=== PATIENT | male | born 1950 | race Caucasian/White ===

== ENCOUNTER → 2017-06-06 10:30 | Outpatient (CLI) | payer OTHER, SELFPAY ==
[2017-06-06 12:25] LABS: AST(SGOT) 22 U/L (15-37); Alanine Aminotransfer ALT/SGPT 12 U/L (16-61); Albumin, Serum 3.5 g/dL (3.2-5.0); Alkaline Phosphatase 110 U/L (45-117); Bilirubin, Direct 0.14 mg/dL (0.00-0.30); Cholesterol 130 mg/dL (200); Globulin 3.7 g/dL (2.2-4.2); High Density Lipoprotein 49 mg/dL; Protein, Total 7.2 g/dL (6.4-8.2); Triglycerides 79 mg/dL; Very Low Density Lipoprotein 16 mg/dL (5-40)
== END ==
PROVIDERS: Internal Medicine Cardiovascular Disease; Family Provider Family Medicine; PCP Family Medicine; Visit Provider Physician Assistant Medical
DX: E78.5 Hyperlipidemia, unspecified (principal); Z79.899 Other long term (current) drug therapy
CPT/HCPCS: 36415; 80061; 80076

== ENCOUNTER → 2017-12-21 09:10 | Outpatient (CLI) | payer OTHER, SELFPAY ==
[2017-12-21 10:17] LABS: AST(SGOT) 21 U/L (15-37); Alanine Aminotransfer ALT/SGPT 23 U/L (16-61); Albumin, Serum 3.7 g/dL (3.2-5.0); Alkaline Phosphatase 102 U/L (45-117); Bilirubin, Direct 0.15 mg/dL (0.00-0.30); Cholesterol 124 mg/dL (200); Globulin 3.2 g/dL (2.2-4.2); High Density Lipoprotein 50 mg/dL; Protein, Total 6.9 g/dL (6.4-8.2); Triglycerides 79 mg/dL; Very Low Density Lipoprotein 16 mg/dL (5-40)
== END ==
PROVIDERS: Physician Assistant Medical; Family Provider Family Medicine; PCP Family Medicine; Visit Provider Internal Medicine Cardiovascular Disease
DX: E78.5 Hyperlipidemia, unspecified (principal); Z79.899 Other long term (current) drug therapy
CPT/HCPCS: 36415; 80061; 80076

== ENCOUNTER 2018-03-24 16:49 | Inpatient (IN) | payer OTHER, SELFPAY ==
[2018-03-24] VITALS (7 sets, daily range): BP systolic 131–150; BP diastolic 69–78; PULSE 61–93; RESP 16–23; TEMP 37; O2SAT 97–100; BMI 30.7; BMI 29.3; BMI 29.4
--- NOTE | 2018-03-24 17:08 | EKG12_ITS ---
Test Reason : CHEST PAIN Blood Pressure : / mmHG Vent. Rate : 091 BPM Atrial Rate : 091 BPM P-R Int : 166 ms QRS Dur : 094 ms QT Int : 352 ms P-R-T Axes : 054 -34 047 degrees QTc Int : 432 ms Normal sinus rhythm Left axis deviation Pulmonary disease pattern Abnormal ECG Confirmed by RADHA AMIN, DAVID ([id number]), graphic editor JEZ MACIAS ([id number] on 03/28/2018 10:47:02 AM Referred By: GURPREET Confirmed By:DAVID GARCIA MD
--- NOTE | 2018-03-24 17:08 | RAD_ITS ---
STUDY: X-RAY CHEST REASON FOR EXAM: Male, 67 years old. Chest pain TECHNIQUE: AP portable COMPARISON: October 01, 2013 FINDINGS: The lungs are clear and expanded. There is no demonstrated pleural abnormality. Normal size heart. Normal mediastinum and della. Normal visualized pulmonary arteries. Normal visualized aortic arch and descending thoracic aorta. Normal visualized thoracic spine. Normal visualized ribs, clavicles, and shoulders. There are postsurgical changes of the cervical spine. There is no demonstrated abnormality of the visualized soft tissue structures of the upper abdomen. No significant change since prior study RAD/Chest 1 View (Portable) IMPRESSION: No acute cardiopulmonary pathology Electronically Signed: Carlos Sheehan MD at 17:58 EST , Service support ,
[2018-03-24] MEDS: Aspirin 81 MG TAB.CHEW 324 MG PO (17:13)
--- NOTE | 2018-03-24 17:14 | ED.VISSUMM ---
- ER Visit Summary Date of Service: 03/24/18 Chief Complaint: [] Chest pain today with exertion History of Present Illness: The patient is a 67 M [] to 3 cardiac stents his general health condition is very stable he was exerting himself today with some activities he began to have chest discomfort he stopped activities took 1 baby aspirin symptoms resolved he is pain-free and he came in for evaluation he is seen by Dr. Villalobos he has never had an GA before, he said no fever no cough history of DVT PE or GA bowel bladder habits have been normal Physical Examination: [] 150/78 100% afebrile pain-free General, no distress resting comfortably HEENT is generally unremarkable The neck is supple no adenopathy Cardiovascular, regular rate and rhythm Lungs, clear bilateral Abdomen, soft nontender Extremities, no clubbing cyanosis or edema Neurologic, awake alert answering questions appropriately moving all 4 extremities eKG shows a sinus rhythm nothing acute given his complaints and all the above screening labs are obtained His screening labs are all generally unremarkable see those reports, we spoke with Dr. Bhatti recommends admission spoke with hospitalist service they will arrange for admission for further management patient remains pain-free and agrees to admission Test Results: [] Emergency Department Course and Treatment: [] Treatment Plan: [] Disposition: [] Admit stable Impression: [] Chest pain, history of cardiac stents This note was generated with [employer] dictation software. It may contain incorrect words, spelling, and punctuation that were not noted in review of the chart prior to signing ED Disposition - Plan for ED Patient: Chief Complaint: Chest Pain Referrals: Misael Woo III, MD [Primary Care Provider] -
[2018-03-24 17:48] LABS: Absolute Lymphocyte Count 0.97 X10^3/ul (0.83-4.51); Absolute Neutrophil Count 9.1 X10^3/uL (2.0-7.7); Basophil# 0.02 X10^3/uL; Basophil% 0.2 % (0-1); Eosinophil# 0.07 X10^3/uL; Eosinophils% 0.6 % (0-5); Hematocrit 40.3 % (40-54); Lymphocyte # 0.97 X10^3/ul (4.0); Lymphocyte % 8.7 % (19-41); Mean Corp Hgb Conc 34.7 g/gl (32-36); Mean Corpuscular Hgb 31.1 pg (27.0-32.0); Mean Corpuscular Volume 89.6 fL (80-94); Mean Platelet Vol. 10.2 fl (6.2-12.0); Monocyte# 0.99 X10^3/uL; Monocyte% 8.8 % (0-10); Neutrophil # 9.11 X10^3/uL (2.7-7.7); Neutrophil % 81.4 % (47-70); Platelet Count 220 K/mm3 (150-450); RBC Distribution Width CV 12.3 % (11.6-14.6); White Blood Count 11.2 K/mm3 (4.4-11.0)
--- NOTE | 2018-03-24 17:52 | PCM.CONS.C ---
Reason for Consult Date of Consultation: 03/24/18 Reason for Consultation: Chest discomfort History of Present Illness: JESSI JEFFERSON, is a 67 M who presents to the emergency room this afternoon with chest discomfort. He says that he was engaged in heavy exertional activity this afternoon and then started experiencing chest discomfort described as a heaviness he sat down for a few minutes and the chest discomfort seemed to ease. He however continued to have it with mild radiation to the left arm. He called and was brought to the emergency room and by the time he got to the emergency room he was free of any significant discomfort. An EKG which was done demonstrated normal sinus rhythm with no acute changes. He was however concerned about the extent of the chest discomfort. He says that in the past stress tests have not demonstrated any abnormality though he has had disease. He has a history of coronary artery disease with angioplasty and stenting to his LAD and circumflex in 2008, and IVUS guided stenting to his RCA in 2013. He also has a history of hypertension and hyperlipidemia. He has not had any dizziness or diaphoresis no near syncope or syncope. He has been compliant with all his medications. He is currently pain-free. Past Medical History Allergies/Adverse Reactions: Allergies oxycodone HCl [From Percocet] Allergy (Intermediate, Verified 03/24/18 16:49) Itching duloxetine HCl [From Cymbalta] Adverse Reaction (Intermediate, Verified 03/24/18 16:49) Mood Change venlafaxine HCl [From Effexor] Adverse Reaction (Intermediate, Verified 03/24/18 16:49) Mood change aricept Adverse Reaction (Intermediate, Uncoded 03/24/18 16:49) GI upset Home Medications: Ambulatory Orders Medication Instructions Recorded Carbidopa/Levodopa [Sinemet Cr 1 ea PO TID 10/01/13 25-100 Tablet] Cyanocobalamin [Vitamin B12] 500 mcg PO DAILY@0800 10/01/13 Doxazosin Mesylate [Cardura] 4 mg PO QHS 10/01/13 Finasteride [Proscar] 5 mg PO DAILY 10/01/13 Omeprazole [Prilosec] 20 mg PO DAILY 10/01/13 Pyridoxine HCl [Vitamin B6] 200 mg PO DAILY 10/01/13 aspirin 81 mg tablet,delayed 81 mg PO QDAY 12/02/17 release gabapentin 300 mg capsule 300 mg PO QDAY PRN 12/03/17 atorvastatin 80 mg tablet 80 mg PO QHS #90 tab 01/08/18 Past Medical History (Chronic Problems): Chronic Problems (Last Reviewed 12/02/17 @ 13:17 by Tiffany Valdez) 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 Villalobos Family history of premature coronary heart disease (Chronic) Male <55 Surgical History: no surgical history Lives: Spouse/ Significant Other Smoking Status: Never smoker Alcohol: None Drugs: None Review of Systems - Review of Systems General: Denies: Fever, Night Sweats, Fatigue HEENT: Denies: Vision Change Cardiovascular: Reports: Chest Discomfort with Exertion, Chest Heaviness. Denies: Chest Discomfort, Shortness of Breath, Orthopnea, PND, Peripheral Edema, Palpitations, Lightheadedness, Dizziness, Near Syncope, Syncope Respiratory: Denies: Cough, Sputum Production, Hemoptysis Gastrointestinal: Denies: Indigestion, Hematemesis, Hematochezia, Melena Genitourinary: Denies: Dysuria, Hematuria Muscoloskeletal: Denies: Myalgias Skin: Denies: Rash Neurological: Denies: Dizziness Psychiatric: Denies: Anxiety Endocrine: Denies: Heat Intolerance Hematologic/ Lymphatic: Denies: Anemia Subjectve: Pleasant gentleman in no apparent distress Objective: Vital Signs Temp Pulse Resp BP Pulse Ox 98.6 F 93 22 H 150/78 H 100 03/24/18 16:49 03/24/18 16:49 03/24/18 16:49 03/24/18 16:49 03/24/18 17:14 Oxygen Flow Rate (L/min) 2 Oxygen Delivery Method Nasal Cannula Weight: 208 lb 1.862 oz Body Mass Index (BMI) 30.7 General: Awake, Alert, Oriented x 3 HEENT: PERRL, EOMI, Sclera Non Icteric Neck: Supple, Good ROM, No Lymph Node Enlargement Lungs: Clear to auscultation Cardiovascular: Regular Rhythm, Normal S1, Normal S2, No Murmurs, No Rubs, No Gallops Vascular: No Carotid Bruits, Normal Femoral Pulses, Normal Radial Pulses, Normal Dorsalis Pedal Pulse, Normal Posterior Tibial Pulses Abdomen: Bowel Sounds Present, Soft, Non Tender, No HSM, No Organomegaly Extremities: No Cyanosis, No Clubbing, No edema Skin: No Rashes Lymphatic: No Lymph Node Enlargement Neurological: No Focal Motor or Sensory Deficit Psych/Mental Status: Appropriate Rhythm: EKG: ECHO: Stress Test: Cardiac Cath: PCI: CT Surgery: Holter monitor: EPS: PPM: CXR: Chest CT Scan: Assessment/Plan 1. Chest pain Patient presents with new onset exertional chest discomfort. He does have a known history of coronary artery disease status post previous stenting as noted above. He has been otherwise physically active in the past and has not had any anginal spells. His EKG does not demonstrate any acute abnormalities. Due to the recent onset of the discomfort I am concerned that this may be a manifestation of angina. As in the past he has had stress test which she says have been nondiagnostic he is hesitant to proceed with another stress test. I therefore discussed with him about the possibility of undergoing a cardiac catheterization. The risk benefits and alternatives have been explained to him he understands and agrees to proceed. Above discussed with Dr. Villalobos who would perform the cardiac catheterization in a.m. 2. Hyperlipidemia Routine lipid profiles are obtained and at his last visit he was noted to be at goal. We will continue to check this every 6 months. 3. Atrial fibrillation He does have a history of paroxysmal atrial fibrillation and currently is maintaining sinus rhythm. No other recommendation regarding the above will be made. Thank you for allowing me to participate in the care of your patient. Please don't hesitate to call if any issues arise
--- NOTE | 2018-03-24 17:56 | CON.PCM_ITS ---
Reason for Consult Date of Consultation: 03/24/18 Reason for Consultation: Chest discomfort History of Present Illness: JESSI JEFFERSON, is a 67 M who presents to the emergency room this afternoon with chest discomfort. He says that he was engaged in heavy exertional activity this afternoon and then started experiencing chest discomfort described as a heaviness he sat down for a few minutes and the chest discomfort seemed to ease. He however continued to have it with mild radiation to the left arm. He called and was brought to the emergency room and by the time he got to the emergency room he was free of any significant discomfort. An EKG which was done demonstrated normal sinus rhythm with no acute changes. He was however concerned about the extent of the chest discomfort. He says that in the past stress tests have not demonstrated any abnormality though he has had disease. He has a history of coronary artery disease with angioplasty and stenting to his LAD and circumflex in 2008, and IVUS guided stenting to his RCA in 2013. He also has a history of hypertension and hyperlipidemia. He has not had any dizziness or diaphoresis no near syncope or syncope. He has been compliant with all his medications. He is currently pain-free. Past Medical History Allergies/Adverse Reactions: Allergies oxycodone HCl [From Percocet] Allergy (Intermediate, Verified 03/24/18 16:49) Itching duloxetine HCl [From Cymbalta] Adverse Reaction (Intermediate, Verified 03/24/18 16:49) Mood Change venlafaxine HCl [From Effexor] Adverse Reaction (Intermediate, Verified 03/24/18 16:49) Mood change aricept Adverse Reaction (Intermediate, Uncoded 03/24/18 16:49) GI upset Home Medications: Ambulatory Orders Medication Instructions Recorded Carbidopa/Levodopa [Sinemet Cr 1 ea PO TID 10/01/13 25-100 Tablet] Cyanocobalamin [Vitamin B12] 500 mcg PO DAILY@0800 10/01/13 Doxazosin Mesylate [Cardura] 4 mg PO QHS 10/01/13 Finasteride [Proscar] 5 mg PO DAILY 10/01/13 Omeprazole [Prilosec] 20 mg PO DAILY 10/01/13 Pyridoxine HCl [Vitamin B6] 200 mg PO DAILY 10/01/13 aspirin 81 mg tablet,delayed 81 mg PO QDAY 12/02/17 release gabapentin 300 mg capsule 300 mg PO QDAY PRN 12/03/17 atorvastatin 80 mg tablet 80 mg PO QHS #90 tab 01/08/18 Past Medical History (Chronic Problems): Chronic Problems (Last Reviewed 12/02/17 @ 13:17 by Tiffany Valdez) 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 Villalobos Family history of premature coronary heart disease (Chronic) Male <55 Surgical History: no surgical history Lives: Spouse/ Significant Other Smoking Status: Never smoker Alcohol: None Drugs: None Review of Systems - Review of Systems General: Denies: Fever, Night Sweats, Fatigue HEENT: Denies: Vision Change Cardiovascular: Reports: Chest Discomfort with Exertion, Chest Heaviness. Denies: Chest Discomfort, Shortness of Breath, Orthopnea, PND, Peripheral Edema, Palpitations, Lightheadedness, Dizziness, Near Syncope, Syncope Respiratory: Denies: Cough, Sputum Production, Hemoptysis Gastrointestinal: Denies: Indigestion, Hematemesis, Hematochezia, Melena Genitourinary: Denies: Dysuria, Hematuria Muscoloskeletal: Denies: Myalgias Skin: Denies: Rash Neurological: Denies: Dizziness Psychiatric: Denies: Anxiety Endocrine: Denies: Heat Intolerance Hematologic/ Lymphatic: Denies: Anemia Subjectve: Pleasant gentleman in no apparent distress Objective: Vital Signs Temp Pulse Resp BP Pulse Ox 98.6 F 93 22 H 150/78 H 100 03/24/18 16:49 03/24/18 16:49 03/24/18 16:49 03/24/18 16:49 03/24/18 17:14 Oxygen Flow Rate (L/min) 2 Oxygen Delivery Method Nasal Cannula Weight: 208 lb 1.862 oz Body Mass Index (BMI) 30.7 General: Awake, Alert, Oriented x 3 HEENT: PERRL, EOMI, Sclera Non Icteric Neck: Supple, Good ROM, No Lymph Node Enlargement Lungs: Clear to auscultation Cardiovascular: Regular Rhythm, Normal S1, Normal S2, No Murmurs, No Rubs, No Gallops Vascular: No Carotid Bruits, Normal Femoral Pulses, Normal Radial Pulses, Normal Dorsalis Pedal Pulse, Normal Posterior Tibial Pulses Abdomen: Bowel Sounds Present, Soft, Non Tender, No HSM, No Organomegaly Extremities: No Cyanosis, No Clubbing, No edema Skin: No Rashes Lymphatic: No Lymph Node Enlargement Neurological: No Focal Motor or Sensory Deficit Psych/Mental Status: Appropriate Rhythm: EKG: ECHO: Stress Test: Cardiac Cath: PCI: CT Surgery: Holter monitor: EPS: PPM: CXR: Chest CT Scan: Assessment/Plan 1. Chest pain * Patient presents with new onset exertional chest discomfort. He does have a known history of coronary artery disease status post previous stenting as noted above. He has been otherwise physically active in the past and has not had any anginal spells. His EKG does not demonstrate any acute abnormalities. * Due to the recent onset of the discomfort I am concerned that this may be a manifestation of angina. As in the past he has had stress test which she says have been nondiagnostic he is hesitant to proceed with another stress test. I therefore discussed with him about the possibility of undergoing a cardiac catheterization. The risk benefits and alternatives have been explained to him he understands and agrees to proceed. * Above discussed with Dr. Villalobos who would perform the cardiac catheterization in a.m. * 2. Hyperlipidemia * Routine lipid profiles are obtained and at his last visit he was noted to be at goal. We will continue to check this every 6 months. * 3. Atrial fibrillation * He does have a history of paroxysmal atrial fibrillation and currently is maintaining sinus rhythm. No other recommendation regarding the above will be made. * Thank you for allowing me to participate in the care of your patient. Please don't hesitate to call if any issues arise
[2018-03-24 18:04] LABS: POSITIVE COUNT NO; POSITIVE DIFFERENTIAL NO; POSITIVE MORPHOLOGY NO
[2018-03-24 18:36] LABS: Anion Gap 11 (5-15); BUN 26 mg/dL (7-18); BUN/Creat Ratio 20.3 RATIO (10-20); Chloride 106 mmol/L (98-107); Creatinine, Serum 1.28 mg/dL (0.70-1.30); EST Glomerular Filtration Rate 60 mL/min (>60); Est Glom Filt Rate - Afr Amer 72 mL/min (>60); Estimated Creatinine Clearance 57.54 ml/min; Glucose 90 mg/dL (74-106); Potassium 3.6 mmol/L (3.5-5.1); Sodium Level 141 mmol/L (136-145)
--- NOTE | 2018-03-24 18:55 | EKG12_ITS ---
Test Reason : CP ADMIT Blood Pressure : / mmHG Vent. Rate : 060 BPM Atrial Rate : 060 BPM P-R Int : 182 ms QRS Dur : 096 ms QT Int : 408 ms P-R-T Axes : 058 -37 022 degrees QTc Int : 408 ms Normal sinus rhythm Left axis deviation Abnormal ECG Confirmed by MELVIN AMIN, ALEIDA ([id number]), editor city JEZ MACIAS ([id number]) on 03/28/2018 11:37:28 AM Referred By: DR JENNINGS Confirmed By:ALEIDA CHARLES MD
--- NOTE | 2018-03-24 18:58 | PCM.HP.STD ---
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 transplanted heart: [place] heart Qualified Code(s): I25.10 - Atherosclerotic heart disease of [place] coronary artery without angina pectoris (5) Atrial fibrillation Status: Chronic (6) History of percutaneous transluminal coronary angioplasty Status: Chronic Comment: 03/21/09, PTCA/stent (JUAN) to mid LAD (3.5 X 13mm Cypher) & PCI of mid LCx @ [facility]; PCI JUAN mid RCA (Promus Premier 3.0 X 32mm) 10/08/[address] Villalobos (7) Family history of premature coronary heart disease Status: Chronic Comment: Male <55 (8) Parkinson disease Status: Chronic (9) BPH (benign prostatic hyperplasia) Status: Chronic History of Present Illness Date of Admission: 03/24/18 Chief Complaint: Chest pain The patient is a 67 year old M with a past medical history of hypertension, coronary artery disease, PTCA to the LAD and circumflex in 2008 and RCA in 2013, hyperlipidemia and paroxysmal atrial fibrillation who presented to the emergency department at [facility] on 03/24/2018 complaining of chest pain that started while he was exerting himself walking up and down a steep hill to drag garbage from a ravine. He sat down for a few minutes and the pain did not ease up so he went home. He states he was diaphoretic but he had been working hard. He denied any shortness of breath or radiation of the pain. He also denied nausea. He arrived home he still had discomfort in his left chest and decided to come to the emergency room. When he arrived in the emergency department he was almost pain-free. Vital signs at arrival to the emergency room were temperature 98.6, pulse rate 93, blood pressure 150/78, respiratory rate 22 and he was 97% saturated on room air. White blood cell count was mildly elevated at 11.2 with 81% neutrophils. Hemoglobin and platelets were within normal limits. BMP was unremarkable with the exception of an increased BUN at 26 with a creatinine of 1.28. Troponin was less than 0.015. Chest x-ray showed no infiltrates, pleural effusions or pulmonary vascular congestion. EKG showed normal sinus rhythm with no suspicious ischemic changes. Patient was very concerned about the chest pain because he has had negative stress tests in the past and he has documented coronary disease. He was seen in consultation by Dr. Bhatti who feels he needs admitted for cardiac catheterization in the morning given false negative stress tests in the past. Past Medical History Past Medical History (Chronic Problems): Chronic Problems (Last Updated 03/24/18 @ 19:41 by Concha Cantor DO) Parkinson disease (Chronic) BPH (benign prostatic hyperplasia) (Chronic) assisted use of drug (Chronic) Hyperlipidemia (Chronic) Atherosclerotic heart disease of [place] coronary artery without angina pectoris (Chronic) Atrial fibrillation (Chronic) History of percutaneous transluminal coronary angioplasty (Chronic) 03/21/09, PTCA/stent (JUAN) to mid LAD (3.5 X 13mm Cypher) & PCI of mid LCx @ [facility]; PCI JUAN mid RCA (Promus Premier 3.0 X 32mm) 10/08/[address] 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 (Chronic) Z79.899 Hyperlipidemia (Chronic) E78.5 Atherosclerotic heart disease of [place] coronary artery without angina pectoris (Chronic) I25.10 Atrial fibrillation (Chronic) I48.91 Family history of premature coronary heart disease (Chronic) Z82.49 Male <55 Allergies oxycodone HCl [From Percocet] Allergy (Intermediate, Verified 03/24/18 16:49) Itching duloxetine HCl [From Cymbalta] Adverse Reaction (Intermediate, Verified 03/24/18 16:49) Mood Change venlafaxine HCl [From Effexor] Adverse Reaction (Intermediate, Verified 03/24/18 16:49) Mood change aricept Adverse Reaction (Intermediate, Uncoded 03/24/18 16:49) GI upset Home Medications: Ambulatory Orders Medication Instructions Recorded Carbidopa/Levodopa [Sinemet Cr 1 ea PO TID 10/01/13 25-100 Tablet] Cyanocobalamin [Vitamin B12] 500 mcg PO DAILY@0800 10/01/13 Doxazosin Mesylate [Cardura] 4 mg PO QHS 10/01/13 Finasteride [Proscar] 5 mg PO DAILY 10/01/13 Omeprazole [Prilosec] 20 mg PO DAILY 10/01/13 Pyridoxine HCl [Vitamin B6] 200 mg PO DAILY 10/01/13 gabapentin 300 mg capsule 300 mg PO QDAY PRN 12/03/17 Aspirin [Aspirin, Baby] 81 mg PO DAILY@0800 03/24/18 Atorvastatin Calcium [Lipitor] 80 mg PO QHS 03/24/18 Surgical History: Surgical History (Last Reviewed 03/24/18 @ 19:42 by Concha Cantor DO) History of percutaneous transluminal coronary angioplasty (Chronic) Z98.61 03/21/09, PTCA/stent (JUAN) to mid LAD (3.5 X 13mm Cypher) & PCI of mid LCx @ [facility]; PCI JUAN mid RCA (Promus Premier 3.0 X 32mm) 10/08/[address] Villalobos Surgical History: no surgical history Lives: Spouse/ Significant Other Smoking Status: Never smoker Alcohol: None Drugs: None - *Family History Paternal Family History: Family History (Last Reviewed 03/24/18 @ 19:42 by Concha Cantor DO) Father Myocardial infarction Heart disease Mother Cancer Brother Myocardial infarction Sister Cancer Review of Systems Constitutional: Denies: Chills, Fever, Weight Change Eyes: Denies: Blurred vision, Pain HEENT: Denies: Head Aches, Sinus Congestion, Sinus Drainage Cardiovascular: Reports: Chest Pain - left chest, without radiation.. Denies: Edema, Orthopnea, Palpitations, Syncope Respiratory: Denies: Cough, Shortness of breath at rest, Sputum production Gastrointestinal: Denies: Abdominal Pain, Nausea, Vomiting Genitourinary: Denies: Dysuria Musculoskeletal: Denies: Arm Pain, Joint Pain, Joint Tenderness Skin: Denies: Rash, Wounds Neurological: Denies: Numbness, Tingling, Focal weakness Psychiatric: Denies: Anxiety, Depression, Homicidal Ideations, Suicidal Ideations Hematologic/ Lymphatic: Denies: Easy Bruising, Easy Bleeding, Hx of blood clot VTE Information - Inpt Only VTE Present on Admission: No VTE Mechan Device Prophylaxis: SCD's, Knee High HIEU Hose VTE Pharm Prophylaxis ordered?: Yes Patient Problems: Active and Suspected Problems (Last Updated 03/24/18 @ 19:41 by Concha Cantor DO) Unstable angina (Acute) Cervical vertebral fusion (Acute) - Physical Exam General: Alert, Oriented x3, Cooperative, No apparent distress, Well developed, Well nourished HEENT: Atraumatic, PERRLA, EOMI, Normocephalic Oral: Moist Mucosa Neck: Supple, No JVD, Negative Carotid Bruits, No Nuchal Rigidity, Trachea Midline, - - Carotids have brisk upstroke and good pulse volume bilaterally Lungs: Clear to auscultation, Normal air movement, No rhonchi, No wheeze, No rales Cardiovascular: Regular rate, Regular Rhythm, Normal S1, Normal S2, No murmurs, No Ectopic Activity, No rub noted, No Gallop Abdomen: Bowel Sounds Present, Soft, Non Tender, Non-Distended, - - No abdominal bruits Extremities: No clubbing, No cyanosis, No edema, Capillary Refill Less than 3 Seconds, No Calf Tenderness, Peripheral Pulses Normal Skin: No rashes, No breakdown Musculoskeletal: No Tenderness to Palpation of Joints or Extremities, No Muscle Wasting Neurological: Cranial nerves II-XII grossly intact, Neuro grossly intact Psych/Mental Status: Normal Affect, Appropriate Vital Signs Temp Pulse Resp BP Pulse Ox 98.6 F 61 17 140/69 H 99 03/24/18 16:49 03/24/18 18:15 03/24/18 18:15 03/24/18 18:15 03/24/18 18:15 Oxygen Flow Rate (L/min) 2 Oxygen Delivery Method Nasal Cannula Weight: 208 lb 1.862 oz Body Mass Index (BMI) 30.7 Laboratory Tests Past 24 Hrs 03/24/18 03/24/18 16:55 16:55 WBC 11.2 H RBC 4.50 L Hgb 14.0 Hct 40.3 MCV 89.6 MCH 31.1 MCHC 34.7 RDW 12.3 RDW Differential 40.0 Plt Count 220 MPV 10.2 Immature Gran % (Auto) 0.300 Neut % (Auto) 81.4 H Lymph % (Auto) 8.7 L [place] % (Auto) 8.8 Eos % (Auto) 0.6 Baso % (Auto) 0.2 Absolute Neuts (auto) 9.1 H Absolute Lymphs (auto) 0.97 Total Counted Not Reportable Sodium 141 Potassium 3.6 Chloride 106 Carbon Dioxide 24.0 Anion Gap 11 BUN 26 H Creatinine 1.28 Estim Creat Clear Calc 57.54 Est GFR (MDRD) Af Amer 72 Est GFR (MDRD) Non-Af 60 BUN/Creatinine Ratio 20.3 H Glucose 90 Calcium 9.0 Troponin I < 0.015 Assessment/Plan All Active Problems (Last Updated 03/24/18 @ 19:41 by Concha Cantor DO) Unstable angina (Acute) Cervical vertebral fusion (Acute) Impressions 1. Unstable angina 2. History of coronary artery disease with PTCA to LAD, circumflex artery and RCA in the past. Has had false negative stress test in the past. 3. Parkinson's disease 4. Hyperlipidemia 5. Paroxysmal atrial fibrillation-not on anticoagulation 6. overweight Admit to a monitored bed on PCU ASA 81 mg PO daily SL NTG 0.4 mg PRN chest pain Serial Cardiac Enzymes Stat EKG PRN CP Chest XRAY Cardiac catheterization in the a.m. DVT prophylaxis with 40 mg of subcutaneous Lovenox now followed by SCDs and HIEU ramírez A loading dose of Plavix was given by Dr. Bhatti and he will be started on Plavix 75 mg daily. MARIALUISA score is 4 Code Visit OBSV E&M: 81179 Initial observation care L3
--- NOTE | 2018-03-24 19:04 | HP.PCM_ITS ---
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 transplanted heart: [place] heart Qualified Code(s): I25.10 - Atherosclerotic heart disease of [place] coronary artery without angina pectoris (5) Atrial fibrillation Status: Chronic (6) History of percutaneous transluminal coronary angioplasty Status: Chronic Comment: 03/21/09, PTCA/stent (JUAN) to mid LAD (3.5 X 13mm Cypher) & PCI of mid LCx @ [facility]; PCI JUAN mid RCA (Promus Premier 3.0 X 32mm) 10/08/[address] Villalobos (7) Family history of premature coronary heart disease Status: Chronic Comment: Male <55 (8) Parkinson disease Status: Chronic (9) BPH (benign prostatic hyperplasia) Status: Chronic History of Present Illness Date of Admission: 03/24/18 Chief Complaint: Chest pain The patient is a 67 year old M with a past medical history of hypertension, coronary artery disease, PTCA to the LAD and circumflex in 2008 and RCA in 2013, hyperlipidemia and paroxysmal atrial fibrillation who presented to the emergency department at [facility] on 03/24/2018 complaining of chest pain that started while he was exerting himself walking up and down a steep hill to drag garbage from a ravine. He sat down for a few minutes and the pain did not ease up so he went home. He states he was diaphoretic but he had been working hard. He denied any shortness of breath or radiation of the pain. He also denied nausea. He arrived home he still had discomfort in his left chest and decided to come to the emergency room. When he arrived in the emergency department he was almost pain-free. Vital signs at arrival to the emergency room were temperature 98.6, pulse rate 93, blood pressure 150/78, respiratory rate 22 and he was 97% saturated on room air. White blood cell count was mildly elevated at 11.2 with 81% neutrophils. Hemoglobin and platelets were within normal limits. BMP was unremarkable with the exception of an increased BUN at 26 with a creatinine of 1.28. Troponin was less than 0.015. Chest x-ray showed no infiltrates, pleural effusions or pulmonary vascular congestion. EKG showed normal sinus rhythm with no suspicious ischemic changes. Patient was very concerned about the chest pain because he has had negative stress tests in the past and he has documented coronary disease. He was seen in consultation by Dr. Bhatti who feels he needs admitted for cardiac catheterization in the morning given false negative stress tests in the past. 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) Z79.899 Hyperlipidemia (Chronic) E78.5 Atherosclerotic heart disease of [place] coronary artery without angina pectoris (Chronic) I25.10 Atrial fibrillation (Chronic) I48.91 Family history of premature coronary heart disease (Chronic) Z82.49 Male <55 Allergies oxycodone HCl [From Percocet] Allergy (Intermediate, Verified 03/24/18 16:49) Itching duloxetine HCl [From Cymbalta] Adverse Reaction (Intermediate, Verified 03/24/18 16:49) Mood Change venlafaxine HCl [From Effexor] Adverse Reaction (Intermediate, Verified 03/24/18 16:49) Mood change aricept Adverse Reaction (Intermediate, Uncoded 03/24/18 16:49) GI upset Home Medications: Ambulatory Orders Medication Instructions Recorded Carbidopa/Levodopa [Sinemet Cr 1 ea PO TID 10/01/13 25-100 Tablet] Cyanocobalamin [Vitamin B12] 500 mcg PO DAILY@0800 10/01/13 Doxazosin Mesylate [Cardura] 4 mg PO QHS 10/01/13 Finasteride [Proscar] 5 mg PO DAILY 10/01/13 Omeprazole [Prilosec] 20 mg PO DAILY 10/01/13 Pyridoxine HCl [Vitamin B6] 200 mg PO DAILY 10/01/13 gabapentin 300 mg capsule 300 mg PO QDAY PRN 12/03/17 Aspirin [Aspirin, Baby] 81 mg PO DAILY@0800 03/24/18 Atorvastatin Calcium [Lipitor] 80 mg PO QHS 03/24/18 Surgical History: Surgical History (Last Reviewed 03/24/18 @ 19:42 by Concha Cantor DO) History of percutaneous transluminal coronary angioplasty (Chronic) Z98.61 03/21/09, PTCA/stent (JUAN) to mid LAD (3.5 X 13mm Cypher) & PCI of mid LCx @ [facility]; PCI JUAN mid RCA (Promus Premier 3.0 X 32mm) 10/08/[address] Villalobos Surgical History: no surgical history Lives: Spouse/ Significant Other Smoking Status: Never smoker Alcohol: None Drugs: None - *Family History Paternal Family History: Family History (Last Reviewed 03/24/18 @ 19:42 by Concha Cantor DO) Father Myocardial infarction Heart disease Mother Cancer Brother Myocardial infarction Sister Cancer Review of Systems Constitutional: Denies: Chills, Fever, Weight Change Eyes: Denies: Blurred vision, Pain HEENT: Denies: Head Aches, Sinus Congestion, Sinus Drainage Cardiovascular: Reports: Chest Pain - left chest, without radiation.. Denies: Edema, Orthopnea, Palpitations, Syncope Respiratory: Denies: Cough, Shortness of breath at rest, Sputum production Gastrointestinal: Denies: Abdominal Pain, Nausea, Vomiting Genitourinary: Denies: Dysuria Musculoskeletal: Denies: Arm Pain, Joint Pain, Joint Tenderness Skin: Denies: Rash, Wounds Neurological: Denies: Numbness, Tingling, Focal weakness Psychiatric: Denies: Anxiety, Depression, Homicidal Ideations, Suicidal Ideations Hematologic/ Lymphatic: Denies: Easy Bruising, Easy Bleeding, Hx of blood clot VTE Information - Inpt Only VTE Present on Admission: No VTE Mechan Device Prophylaxis: SCD's, Knee High HIEU Hose VTE Pharm Prophylaxis ordered?: Yes Patient Problems: Active and Suspected Problems (Last Updated 03/24/18 @ 19:41 by Concha Cantor DO) Unstable angina (Acute) Cervical vertebral fusion (Acute) - Physical Exam General: Alert, Oriented x3, Cooperative, No apparent distress, Well developed, Well nourished HEENT: Atraumatic, PERRLA, EOMI, Normocephalic Oral: Moist Mucosa Neck: Supple, No JVD, Negative Carotid Bruits, No Nuchal Rigidity, Trachea Midline, - - Carotids have brisk upstroke and good pulse volume bilaterally Lungs: Clear to auscultation, Normal air movement, No rhonchi, No wheeze, No rales Cardiovascular: Regular rate, Regular Rhythm, Normal S1, Normal S2, No murmurs, No Ectopic Activity, No rub noted, No Gallop Abdomen: Bowel Sounds Present, Soft, Non Tender, Non-Distended, - - No abdominal bruits Extremities: No clubbing, No cyanosis, No edema, Capillary Refill Less than 3 Seconds, No Calf Tenderness, Peripheral Pulses Normal Skin: No rashes, No breakdown Musculoskeletal: No Tenderness to Palpation of Joints or Extremities, No Muscle Wasting Neurological: Cranial nerves II-XII grossly intact, Neuro grossly intact Psych/Mental Status: Normal Affect, Appropriate Vital Signs Temp Pulse Resp BP Pulse Ox 98.6 F 61 17 140/69 H 99 03/24/18 16:49 03/24/18 18:15 03/24/18 18:15 03/24/18 18:15 03/24/18 18:15 Oxygen Flow Rate (L/min) 2 Oxygen Delivery Method Nasal Cannula Weight: 208 lb 1.862 oz Body Mass Index (BMI) 30.7 Laboratory Tests Past 24 Hrs 03/24/18 03/24/18 16:55 16:55 WBC 11.2 H RBC 4.50 L Hgb 14.0 Hct 40.3 MCV 89.6 MCH 31.1 MCHC 34.7 RDW 12.3 RDW Differential 40.0 Plt Count 220 MPV 10.2 Immature Gran % (Auto) 0.300 Neut % (Auto) 81.4 H Lymph % (Auto) 8.7 L [place] % (Auto) 8.8 Eos % (Auto) 0.6 Baso % (Auto) 0.2 Absolute Neuts (auto) 9.1 H Absolute Lymphs (auto) 0.97 Total Counted Not Reportable Sodium 141 Potassium 3.6 Chloride 106 Carbon Dioxide 24.0 Anion Gap 11 BUN 26 H Creatinine 1.28 Estim Creat Clear Calc 57.54 Est GFR (MDRD) Af Amer 72 Est GFR (MDRD) Non-Af 60 BUN/Creatinine Ratio 20.3 H Glucose 90 Calcium 9.0 Troponin I < 0.015 Assessment/Plan All Active Problems (Last Updated 03/24/18 @ 19:41 by Concha Cantor DO) Unstable angina (Acute) Cervical vertebral fusion (Acute) Impressions 1. Unstable angina 2. History of coronary artery disease with PTCA to LAD, circumflex artery and RCA in the past. Has had false negative stress test in the past. 3. Parkinson's disease 4. Hyperlipidemia 5. Paroxysmal atrial fibrillation-not on anticoagulation 6. overweight Admit to a monitored bed on PCU ASA 81 mg PO daily SL NTG 0.4 mg PRN chest pain Serial Cardiac Enzymes Stat EKG PRN CP Chest XRAY Cardiac catheterization in the a.m. DVT prophylaxis with 40 mg of subcutaneous Lovenox now followed by SCDs and HIEU ramírez A loading dose of Plavix was given by Dr. Bhatti and he will be started on Plavix 75 mg daily. MARIALUISA score is 4 Code Visit OBSV E&M: 61109 Initial observation care L3
[2018-03-24 20:12] LABS: Magnesium 1.4 mg/dL (1.6-2.6)
[2018-03-24] MEDS: Clopidogrel Bisulfate 300 MG Tablet PO (20:40)
[2018-03-24] MEDS: Enoxaparin 40 MG/0.4 ML Syringe SC (20:41)
[2018-03-24] MEDS: LORazepam 1 MG Tablet PO (21:53)
[2018-03-24] MEDS: Atorvastatin Calcium 80 MG Tablet PO (21:54)
[2018-03-24] MEDS: Doxazosin 4 MG Tablet PO (21:54)
[2018-03-25] VITALS (32 sets, daily range): BP systolic 106–151; BP diastolic 27–71; PULSE 45–70; RESP 10–21; TEMP 36.2–36.9; O2SAT 92–99; BMI 29.2
[2018-03-25] MEDS: Acetaminophen 325 MG Tablet 650 MG PO (02:20)
[2018-03-25 02:30] LABS: Absolute Lymphocyte Count 2.05 X10^3/ul (0.83-4.51); Absolute Neutrophil Count 7.1 X10^3/uL (2.0-7.7); Basophil# 0.03 X10^3/uL; Basophil% 0.3 % (0-1); Eosinophil# 0.27 X10^3/uL; Eosinophils% 2.5 % (0-5); Hemoglobin 13.4 g/dl (13.0-16.5); Lymphocyte # 2.05 X10^3/ul (4.0); Lymphocyte % 19.3 % (19-41); Mean Corp Hgb Conc 35.3 g/gl (32-36); Mean Corpuscular Hgb 31.8 pg (27.0-32.0); Mean Platelet Vol. 9.9 fl (6.2-12.0); Monocyte# 1.14 X10^3/uL; Monocyte% 10.8 % (0-10); Neutrophil # 7.09 X10^3/uL (2.7-7.7); Neutrophil % 66.9 % (47-70); POSITIVE COUNT NO; POSITIVE DIFFERENTIAL NO; POSITIVE MORPHOLOGY NO; Platelet Count 215 K/mm3 (150-450); RBC Distribution Width CV 12.3 % (11.6-14.6); RBC Distribution Width SD 39.9 fl (35.1-43.9); Red Blood Count 4.22 M/mm3 (4.6-6.2); White Blood Count 10.6 K/mm3 (4.4-11.0)
[2018-03-25 02:35] LABS: International Normalized Ratio 1.1; Prothrombin Time (Protime)PT. 14.5 SECONDS (11.7-14.9)
[2018-03-25 02:36] LABS: Partial Thromboplast Time 32.4 Seconds (24.1-36.2)
[2018-03-25 02:52] LABS: ALB/GLOB Ratio 1.2 RATIO (0.9-2.4); AST(SGOT) 20 U/L (15-37); Alanine Aminotransfer ALT/SGPT 29 U/L (16-61); Albumin, Serum 3.7 g/dL (3.2-5.0); Alkaline Phosphatase 85 U/L (45-117); Anion Gap 5 (5-15); BUN 24 mg/dL (7-18); BUN/Creat Ratio 24.5 RATIO (10-20); Calcium,Total 8.4 mg/dL (8.5-10.1); Chloride 107 mmol/L (98-107); Cholesterol 126 mg/dL (200); Creatinine, Serum 0.98 mg/dL (0.70-1.30); EST Glomerular Filtration Rate 82 mL/min (>60); Est Glom Filt Rate - Afr Amer 99 mL/min (>60); Estimated Creatinine Clearance 75.15 ml/min; Globulin 3.1 g/dL (2.2-4.2); Glucose 94 mg/dL (74-106); High Density Lipoprotein 49 mg/dL; Potassium 3.7 mmol/L (3.5-5.1); Protein, Total 6.8 g/dL (6.4-8.2); Sodium Level 140 mmol/L (136-145); Triglycerides 92 mg/dL; Very Low Density Lipoprotein 18 mg/dL (5-40)
--- NOTE | 2018-03-25 05:55 | EKG12_ITS ---
Test Reason : AM EKG Blood Pressure : / mmHG Vent. Rate : 054 BPM Atrial Rate : 054 BPM P-R Int : 200 ms QRS Dur : 096 ms QT Int : 438 ms P-R-T Axes : 015 -10 025 degrees QTc Int : 415 ms Sinus bradycardia Otherwise normal ECG Confirmed by MELVIN AMIN, ALEIDA ([id number]), web content editor JEZ MACIAS ([id number] on 03/28/2018 11:29:38 AM Referred By: DR JENNINGS Confirmed By:ALEIDA CHARLES MD
[2018-03-25] MEDS: Aspirin E.C. 81 MG Tablet PO (06:23)
[2018-03-25] MEDS: CARBIDOPA/LEVODOPA CR 50/200 Tablet PO ×3 (06:23→21:17)
[2018-03-25] MEDS: Clopidogrel Bisulfate 75 MG Tablet PO (06:23)
[2018-03-25] MEDS: 0.9% NaCl Peripheral Flush Adult/Peds IV ×2 (06:27→13:27)
[2018-03-25] MEDS: 0.9% Normal Saline 1,000 ML 15 ML IV (06:27)
[2018-03-25 07:17] LABS: Color, Urine Yellow (Yellow); Glucose, Dipstick Normal (Normal); Ketone-Dipstick Negative (Negative); Leukocyte Esterase-Dipstick Negative /ul (Negative); Nitrite-Dipstick Negative (Negative); Occult Blood-Urine Negative /ul (Negative); Protein-Dipstick Negative (Negative); Urine Bilirubin Dipstick Negative (Negative); Urine Clarity Clear (Clear); Urine Urobilinogen Normal (Normal)
--- NOTE | 2018-03-25 08:44 | CL.I_ITS ---
Patient Name: JESSI JEFFERSON Study Date: 03/25/2018 Performing: Heriberto Villalobos MD Ht: 68.89 inches 175 cm : 1950 Wt: 198.42 lbs 90 kg Age: 67 Gender: male BSA: 2.06 PROCEDURE(S) PERFORMED [id number]/COR/LV [id number] W OR WO PTCA, SINGLE CORONARY ARTERY CLINICAL PROFILE AND CO-MORBIDITIES Patient presents with NSTEMI for urgent cardiac cath Indications: ACS <= 24 hrs, New Onset Angina <= 2 months, Stable Known CAD Heart Failure: None Stress/Imaging Stress/Image Study Performed: No Angina Classification Anginal Classification w/in 2 Weeks: CCS II CAD Presentations: Unstable angina. Non-STEMI. Symptom onset Date/Time: 03/24/2018 Time Not Avail able Comorbidities/Risk Factors: Hypertension Dyslipidemia Prior PCI CONCLUSIONS Single vessel CAD of the mid RCA in stent restenosis due to stent strut fracture. Successful PTCA/JUAN mid RCA ISR with a 3.0 x 12 Promus Synergy, post dilated with a 3.0 x 8 NC balloo n; 75%-->0%, no dissection. Pt had identical anginal symptoms during balloon and stent deployment. RECOMMENDATIONS Referred for immediate PCI Highly recommend quitting all tobacco products Follow up with primary cooler service supervisor Risk factor modification ASA Indefinitley Plavix for at least 12 months Routine post interventional care Refer for Outpatient Cardiac Rehab Manual sheath removal per protocol Follow up with Dr. Villalobos Manual sheath removal due to shallow nature of groin site. DESCRIPTION OF PROCEDURE The patient arrived to the procedure lab. The risks and benefits of the procedure as well as a full d escription of our services here and lack of surgical backup were fully explained to the patient and/o r their significant other prior to the catheterization. The Timeout was completed, verifying the pascual ect patient and procedure. The patient's procedural site was prepped and draped in the usual fashion. Local anesthetic was given subcutaneously to right groin region with Lidocaine 2%. Using a modified Seldinger technique, arterial access was obtained via the right femoral artery, a 4Fr sheath was inse rted. Left Coronary Artery selective angiography was performed in multiple views using a 4 Fr. JL5 c atheter. Right Coronary Artery selective angiography was then performed in multiple views using a 4 F r. 3DRC catheter. Left Ventriculography was performed in GARCIA projection using a 4 Fr. Pigtail cathete r. LV to AO pullback pressures were then recordedThe images were reviewed and options discussed. A decision was then made to proceed with an Intervention, IVUS or other adjunct procedure. Arterial sheath was exchanged for a 6 Fr Sheath. HS II Guide catheter was inserted and engaged in to the RCA. BMW Guide wire was advanced to the RCA. 2x12 Emerge Balloon catheter was inserted. Balloo n catheter was advanced across lesion in the right coronary, mid. PTCA balloon inflated at 8 atms for 50 secs. Angiogram performed post balloon dilatation. 3x12 Synergy Drug Eluting stent was inserted. Drug Eluting stent was advanced across the lesion in the right coronary, mid. 3x8 NC Emerge Balloon c atheter was inserted. Balloon catheter was advanced across lesion in the right coronary, mid. The a rterial sheath was sutured in place and capped CORONARY ANGIOGRAPHY DOMINANCE: Right Dominant LEFT HEART ASSESSMENT Left Ventricular Ejection Fraction: by LV Gram 55 % Depressed Left Ventricular systolic function Inferior Mid Hypokinesis - Mild LEFT MAIN: Mild luminal irregularities less than 30% LEFT ANTERIOR DECENDING ARTERY: PROX LAD: Previously placed stent is patent CIRCUMFLEX ARTERY: Mild luminal irregularities less than 30% OM 1: Proximal - Previously placed stent has an instent 10 % restenosis RIGHT CORONARY ARTERY: MID RCA: Instent restenosis 75 % INTERVENTION INFORMATION LESION SITE: RCA (Mid) Lesion Complexity: Non-High/Non-C, lesion at bifurcation: No, thrombus present: No, lesion length: 12 mm, culprit lesion: Yes, In-stent restenosis: Yes Pre Stenosis: 75 % Pre intervention MARIALUISA flow: 3 PROCEDURE: Drug Eluting Stent with pre and post dilatation Post Stenosis: 0 % Post intervention MARIALUISA flow: 3 Lesion Devices: [place] .014 BMW [place] Straight 190cm Medtronic 6 Fr HSII 100cm Guide Catheter Gustavo Sci EMERGE MR 2.00x12 BALLOON Gustavo Sci Synergy MR JUAN 3.00x12 Gustavo Sci NC EMERGE MR 3.00x08 BALLOON COMPLICATIONS No Complications PROCEDURE MEDICATIONS Oxygen: 2 L/min via nasal cannula Heparin 6000 unit(s) IV 03/25/2018 08:22:50 Nitro 200 mcg IC 03/25/2018 08:24:44 SUMMARY OF HEMODYNAMIC DATA Time AIR REST ECG 08:00:19 AO 148/64 (94) SA 08:13:41 LV 161/-13, 21 08:20:12 LV 152/-12, 20 08:20:18 LVp 146/-2, 17 08:20:49 AOp 146/59 (91) 08:20:55 Signed By Heriberto Villalobos MD On 03/25/2018 08:44:11 Heriberto Villalobos MD
[2018-03-25 08:45] LABS: ACT Activated Clotting Time 191 sec (74-137)
--- NOTE | 2018-03-25 08:49 | CASEMGMT ---
According to the MMO website, the following are in-network tertiary facilities: [facility], [facility], [facility], [facility], [place], [facility], and . Franco SHETH CM
[2018-03-25] MEDS: diazePAM 5 MG Tablet PO ×2 (09:32→21:17)
[2018-03-25] MEDS: 0.9% Normal Saline 1,000 ML 150 ML IV (09:33)
--- NOTE | 2018-03-25 10:14 | CRPHASE1 ---
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 Risk Factors/Lifestyle Smoking Status: Never smoker Hx Hypertension: No Hx Diabetes Mellitus Type 1: No Hx Dyslipidemia: Yes Height: 5 ft 9 in Weight:: 198 lb BMI: 29.2 Risk Factor for Sedentary Lifestyle: Moderate Risk Family History: Family History (Last Reviewed 03/24/18 @ 19:42 by Concha Cantor DO) Father Myocardial infarction Heart disease Mother Cancer Brother Myocardial infarction Sister Cancer Family History: Cancer, Heart Disease Past Cardiac Illness: Previous PCI w/Stent Laboratory Values: Cardiac Rehab Phase I Labs Triglycerides 92 mg/dL (-199) 03/25/18 02:20 Cholesterol 126 mg/dL (200) 03/25/18 02:20 LDL Cholesterol 59 mg/dL (0-130) 03/25/18 02:20 HDL Cholesterol 49 mg/dL (40-) 03/25/18 02:20 Phase I Education Given On:: [place], Nutrition, Antiplatelet medication, CHF, Smoking cessation, Diabetes - Type I, Diabetes - Type II Issues Affecting Care:: None Medical/Surgical History [place]:: No CAD:: Yes Pulmonary:: No COPD:: No Asthma:: No Diabetes:: No Hypertension:: No Dyslipidemia:: Yes Arrhythmias:: Yes - documented a fib, pt denies PE:: No DVT:: No PVD:: No GERD:: Yes Cancer:: No Renal:: No Thyroid:: No Depression:: Yes Anxiety:: Yes PTCA:: Yes ICD:: No Pacemaker:: No Orthopedic:: Yes - knee 'cartilage' high school injury Discharge/Home/Social Eval Marital Status:
--- NOTE | 2018-03-25 10:19 | CRPHASE1_ITS ---
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 Risk Factors/Lifestyle Smoking Status: Never smoker Hx Hypertension: No Hx Diabetes Mellitus Type 1: No Hx Dyslipidemia: Yes Height: 5 ft 9 in Weight:: 198 lb BMI: 29.2 Risk Factor for Sedentary Lifestyle: Moderate Risk Family History: Family History (Last Reviewed 03/24/18 @ 19:42 by Concha Cantor DO) Father Myocardial infarction Heart disease Mother Cancer Brother Myocardial infarction Sister Cancer Family History: Cancer, Heart Disease Past Cardiac Illness: Previous PCI w/Stent Laboratory Values: Cardiac Rehab Phase I Labs Triglycerides 92 mg/dL (-199) 03/25/18 02:20 Cholesterol 126 mg/dL (200) 03/25/18 02:20 LDL Cholesterol 59 mg/dL (0-130) 03/25/18 02:20 HDL Cholesterol 49 mg/dL (40-) 03/25/18 02:20 Phase I Education Given On:: [place], Nutrition, Antiplatelet medication, CHF, Smoking cessation, Diabetes - Type I, Diabetes - Type II Issues Affecting Care:: None Medical/Surgical History [place]:: No CAD:: Yes Pulmonary:: No COPD:: No Asthma:: No Diabetes:: No Hypertension:: No Dyslipidemia:: Yes Arrhythmias:: Yes - documented a fib, pt denies PE:: No DVT:: No PVD:: No GERD:: Yes Cancer:: No Renal:: No Thyroid:: No Depression:: Yes Anxiety:: Yes PTCA:: Yes ICD:: No Pacemaker:: No Orthopedic:: Yes - knee 'cartilage' high school injury Discharge/Home/Social Eval Marital Status:
--- NOTE | 2018-03-25 10:19 | CRPH1.INSTRU ---
General Education CAD and cardiac anatomy and function:: Not instructed Explanation of diagnoses and procedures:: Not instructed Sign/Symptoms of NM:: Not instructed Antiplatelet therapy: Not instructed Proper use of NTG-SL: Not instructed Emergency procedures and activation of EMS: Not instructed Compliance of all prescribed medications: Not instructed Smoking Patient Nicotine/Smoking Risk Factors Are:: Never smoked Dyslipidemia Dyslipidemia Response Code:: Not instructed Overweight/Obesity Patient Overweight/Obesity Risk Factors Are:: Overweight = 26-29 Overweight/Obesity:: Not instructed Hypertension Hypertension:: Not instructed Heart Disease Patient Heart Disease Risk Factors Are:: Family history of heart disease < 65 years old Heart Disease Response Code:: Needs reinforcement Diabetes Patient Diabetes Risk Factors Are:: No documented hx of diabetes Metabolic Syndrome Metabolic Syndrome Response Code:: Not instructed Sedentary Sedentary Response Code:: Needs reinforcement Stress Stress Response Code:: Not instructed
--- NOTE | 2018-03-25 10:22 | CRPH1.INST_ITS ---
General Education CAD and cardiac anatomy and function:: Not instructed Explanation of diagnoses and procedures:: Not instructed Sign/Symptoms of HI:: Not instructed Antiplatelet therapy: Not instructed Proper use of NTG-SL: Not instructed Emergency procedures and activation of EMS: Not instructed Compliance of all prescribed medications: Not instructed Smoking Patient Nicotine/Smoking Risk Factors Are:: Never smoked Dyslipidemia Dyslipidemia Response Code:: Not instructed Overweight/Obesity Patient Overweight/Obesity Risk Factors Are:: Overweight = 26-29 Overweight/Obesity:: Not instructed Hypertension Hypertension:: Not instructed Heart Disease Patient Heart Disease Risk Factors Are:: Family history of heart disease < 65 years old Heart Disease Response Code:: Needs reinforcement Diabetes Patient Diabetes Risk Factors Are:: No documented hx of diabetes Metabolic Syndrome Metabolic Syndrome Response Code:: Not instructed Sedentary Sedentary Response Code:: Needs reinforcement Stress Stress Response Code:: Not instructed
[2018-03-25 11:00] LABS: ACT Activated Clotting Time 142 sec (74-137)
--- NOTE | 2018-03-25 12:30 | PCM.PN.HOSP ---
Patient Problems: Active and Suspected Problems (Last Updated 03/24/18 @ 19:41 by Concha Cantor DO) NSTEMI (non-ST elevated myocardial infarction) (Acute) Subjective: Status post PCI to RCA. No further chest pain. Vitals/I&O's: Vital Signs Temp Pulse Resp BP Pulse Ox 36.2 C L 49 L 16 126/59 H 97 03/25/18 09:24 03/25/18 12:15 03/25/18 12:15 03/25/18 12:15 03/25/18 12:15 Oxygen Flow Rate (L/min) 2 Oxygen Delivery Method Room Air Weight: 89.811 kg Body Mass Index (BMI) 29.3 Intake and Output for Last 24 Hours 03/23/18 03/24/18 03/25/18 23:59 23:59 23:59 Intake Total 805.5 / 805.5 419.7 / 419.7 Balance 805.5 / 805.5 419.7 / 419.7 General: Alert, Cooperative, No apparent distress HEENT: Atraumatic, Normocephalic Oral: Moist Mucosa, No Gingival or Mucosal Lesions/ Ulcerations Neck: No Nodes, Thyroid Normal Size and Texture Lungs: Clear to auscultation, Normal air movement, No rhonchi, No wheeze Cardiovascular: Regular rate, Regular Rhythm, Normal S1, Normal S2, No murmurs Abdomen: Bowel Sounds Present, Soft, Non Tender, Non-Distended, No Hepato-splenomegaly Extremities: No edema, No Calf Tenderness Psych/Mental Status: Normal Affect, Appropriate Laboratory Results 03/24/18 16:55: WBC 11.2 H, RBC 4.50 L, Hgb 14.0, Hct 40.3, MCV 89.6, MCH 31.1, MCHC 34.7, RDW 12.3, RDW Differential 40.0, Plt Count 220, MPV 10.2, Immature Gran % (Auto) 0.300, Neut % (Auto) 81.4 H, Lymph % (Auto) 8.7 L, [place] % (Auto) 8.8, Eos % (Auto) 0.6, Baso % (Auto) 0.2, Absolute Neuts (auto) 9.1 H, Absolute Lymphs (auto) 0.97, Total Counted Not Reportable 03/24/18 16:55: Sodium 141, Potassium 3.6, Chloride 106, Carbon Dioxide 24.0, Anion Gap 11, BUN 26 H, Creatinine 1.28, Estim Creat Clear Calc 57.54, Est GFR (MDRD) Af Amer 72, Est GFR (MDRD) Non-Af 60, BUN/Creatinine Ratio 20.3 H, Glucose 90, Calcium 9.0, Troponin I < 0.015 03/24/18 16:55: Magnesium 1.4 L 03/24/18 20:48: Troponin I 0.128 H 03/24/18 23:14: Troponin I 0.165 H 03/25/18 02:20: Sodium 140, Potassium 3.7, Chloride 107, Carbon Dioxide 28.0, Anion Gap 5, BUN 24 H, Creatinine 0.98, Estim Creat Clear Calc 75.15, Est GFR (MDRD) Af Amer 99, Est GFR (MDRD) Non-Af 82, BUN/Creatinine Ratio 24.5 H, Glucose 94, Calcium 8.4 L, Total Bilirubin 0.80, AST 20, ALT 29, Alkaline Phosphatase 85, Total Protein 6.8, Albumin 3.7, Globulin 3.1, Albumin/Globulin Ratio 1.2, Triglycerides 92, Cholesterol 126, LDL Cholesterol 59, VLDL Cholesterol 18, HDL Cholesterol 49 03/25/18 02:20: Troponin I 0.214 H 03/25/18 02:20: WBC 10.6, RBC 4.22 L, Hgb 13.4, Hct 38.0 L, MCV 90.0, MCH 31.8, MCHC 35.3, RDW 12.3, RDW Differential 39.9, Plt Count 215, MPV 9.9, Immature Gran % (Auto) 0.200, Neut % (Auto) 66.9, Lymph % (Auto) 19.3, Door % (Auto) 10.8 H, Eos % (Auto) 2.5, Baso % (Auto) 0.3, Absolute Neuts (auto) 7.1, Absolute Lymphs (auto) 2.05, Total Counted Not Reportable 03/25/18 02:20: PT 14.5, INR 1.1, APTT 32.4 03/25/18 07:00: Urine Color Yellow, Urine Clarity Clear, Urine pH 5.0, Ur Specific [place] 1.020, Urine Protein Negative, Urine Glucose (UA) Normal, Urine Ketones Negative, Urine Occult Blood Negative, Urine Nitrite Negative, Urine Bilirubin Negative, Urine Urobilinogen Normal, Ur Leukocyte Esterase Negative 03/25/18 08:37: Activated Clotting Time 191 H 03/25/18 10:48: Activated Clotting Time 142 H Current Medications Acetaminophen (Tylenol) 650 mg PO Q6H PRN PRN PRN Reason: PAIN Last Admin: 03/25/18 02:20 Dose: 650 mg Acetaminophen (Tylenol) 650 mg PO Q6H PRN PRN PRN Reason: Mild Pain (0-2/10) Aspirin (Ecotrin) 81 mg PO DAILY@0800 [facility] Last Admin: 03/25/18 06:23 Dose: 81 mg Atorvastatin Calcium (Lipitor) 80 mg PO QHS [facility] Last Admin: 03/24/18 21:54 Dose: 80 mg Atropine Sulfate () 0.5 mg IV UD PRN PRN Reason: HR <50 bpm Carbidopa/Levodopa (Sinemet Cr) 0.5 tablet PO TIDAC [facility] Last Admin: 03/25/18 06:23 Dose: 0.5 tablet Clopidogrel Bisulfate (Plavix) 75 mg PO DAILY [facility] Last Admin: 03/25/18 06:23 Dose: 75 mg Cyanocobalamin (Vitamin B12) 500 mcg PO DAILY@0800 [facility] Diazepam (Valium) 5 mg PO Q6H PRN PRN PRN Reason: BACK SPASMS/ANXIETY Last Admin: 03/25/18 09:32 Dose: 5 mg Doxazosin Mesylate (Cardura) 4 mg PO QHS [facility] Last Admin: 03/24/18 21:54 Dose: 4 mg Finasteride (Proscar) 5 mg PO DAILY [facility] Gabapentin (Neurontin) 300 mg PO DAILY PRN PRN PRN Reason: takes rarely for pain Heparin Sodium (Beef Lung) (Heparin 500 Unit/5 Ml (100/Ml)) 500 unit IV UD PRN PRN Reason: HEPARIN FLUSH Sodium Chloride () 1,000 mls @ 15 mls/hr IV .Q48H [facility] Last Admin: 03/25/18 06:27 Dose: 15 mls/hr Sodium Chloride () 250 mls @ 15 mls/hr IV .[id number] PRN PRN Reason: SALINE FLUSH Sodium Chloride () 1,000 mls @ 150 mls/hr IV .[id number] [facility] Stop: 03/25/18 16:00 Last Admin: 03/25/18 09:33 Dose: 150 mls/hr Labetalol HCl (Trandate) 5 mg IV X1 PRN PRN Reason: SBP > 160 when pulling sheath Lorazepam (Ativan) 1 mg PO QHS [facility] Last Admin: 03/24/18 21:53 Dose: 1 mg Magnesium Hydroxide (Milk Of Magnesia) 30 ml PO DAILY PRN PRN Reason: Constipation Metoclopramide HCl (Reglan) 5 mg IV Q6 PRN PRN Reason: NAUSEA/VOMITING Nitroglycerin (Nitrostat) 0.4 mg SUBLINGUAL Q5M PRN PRN Reason: CHEST PAIN Nitroglycerin (Nitrostat) 0.4 mg SUBLINGUAL Q5M PRN PRN Reason: CARDIAC/CHEST PAIN Pantoprazole Sodium (Protonix) 20 mg PO DAILY [facility] Pyridoxine HCl (Vitamin B-6) 200 mg PO DAILY [facility] Sodium Chloride () 5 - 15 ml IV UD PRN PRN Reason: SALINE FLUSH Last Admin: 03/25/18 06:27 Dose: 10 ml Sodium Chloride () 500 ml IV BOLUS PRN PRN Reason: VASO-VAGAL PROTOCOL Medical Necessity - Tobacco Use Smoking Status: Never smoker Assessment/Plan All Active Problems (Last Updated 03/24/18 @ 19:41 by Concha Cantor DO) NSTEMI (non-ST elevated myocardial infarction) (Acute) 1. NSTEMI Secondary to in-stent restenosis due to stent strut fracture of the mid RCA Status post successful drug-eluting stent to the mid RCA on 03/25 On aspirin, Plavix, high intensity statin Monitor overnight Cardiology following 2. Paroxysmal atrial fibrillation Currently in normal sinus rhythm Not on anticoagulation 3. DVT prophylaxis with SCDs Code Visit Inpatient E&M: 79097 Subs Hosp L2
--- NOTE | 2018-03-25 12:36 | PN_ITS ---
Patient Problems: Active and Suspected Problems (Last Updated 03/24/18 @ 19:41 by Concha Cantor DO) NSTEMI (non-ST elevated myocardial infarction) (Acute) Subjective: Status post PCI to RCA. No further chest pain. Vitals/I&O's: Vital Signs Temp Pulse Resp BP Pulse Ox 36.2 C L 49 L 16 126/59 H 97 03/25/18 09:24 03/25/18 12:15 03/25/18 12:15 03/25/18 12:15 03/25/18 12:15 Oxygen Flow Rate (L/min) 2 Oxygen Delivery Method Room Air Weight: 89.811 kg Body Mass Index (BMI) 29.3 Intake and Output for Last 24 Hours 03/23/18 03/24/18 03/25/18 23:59 23:59 23:59 Intake Total 805.5 / 805.5 419.7 / 419.7 Balance 805.5 / 805.5 419.7 / 419.7 General: Alert, Cooperative, No apparent distress HEENT: Atraumatic, Normocephalic Oral: Moist Mucosa, No Gingival or Mucosal Lesions/ Ulcerations Neck: No Nodes, Thyroid Normal Size and Texture Lungs: Clear to auscultation, Normal air movement, No rhonchi, No wheeze Cardiovascular: Regular rate, Regular Rhythm, Normal S1, Normal S2, No murmurs Abdomen: Bowel Sounds Present, Soft, Non Tender, Non-Distended, No Hepato-splenomegaly Extremities: No edema, No Calf Tenderness Psych/Mental Status: Normal Affect, Appropriate Laboratory Results 03/24/18 16:55: WBC 11.2 H, RBC 4.50 L, Hgb 14.0, Hct 40.3, MCV 89.6, MCH 31.1, MCHC 34.7, RDW 12.3, RDW Differential 40.0, Plt Count 220, MPV 10.2, Immature Gran % (Auto) 0.300, Neut % (Auto) 81.4 H, Lymph % (Auto) 8.7 L, [place] % (Auto) 8.8, Eos % (Auto) 0.6, Baso % (Auto) 0.2, Absolute Neuts (auto) 9.1 H, Absolute Lymphs (auto) 0.97, Total Counted Not Reportable 03/24/18 16:55: Sodium 141, Potassium 3.6, Chloride 106, Carbon Dioxide 24.0, Anion Gap 11, BUN 26 H, Creatinine 1.28, Estim Creat Clear Calc 57.54, Est GFR (MDRD) Af Amer 72, Est GFR (MDRD) Non-Af 60, BUN/Creatinine Ratio 20.3 H, Glucose 90, Calcium 9.0, Troponin I < 0.015 03/24/18 16:55: Magnesium 1.4 L 03/24/18 20:48: Troponin I 0.128 H 03/24/18 23:14: Troponin I 0.165 H 03/25/18 02:20: Sodium 140, Potassium 3.7, Chloride 107, Carbon Dioxide 28.0, Anion Gap 5, BUN 24 H, Creatinine 0.98, Estim Creat Clear Calc 75.15, Est GFR (MDRD) Af Amer 99, Est GFR (MDRD) Non-Af 82, BUN/Creatinine Ratio 24.5 H, Glucose 94, Calcium 8.4 L, Total Bilirubin 0.80, AST 20, ALT 29, Alkaline Phosphatase 85, Total Protein 6.8, Albumin 3.7, Globulin 3.1, Albumin/Globulin Ratio 1.2, Triglycerides 92, Cholesterol 126, LDL Cholesterol 59, VLDL Cholesterol 18, HDL Cholesterol 49 03/25/18 02:20: Troponin I 0.214 H 03/25/18 02:20: WBC 10.6, RBC 4.22 L, Hgb 13.4, Hct 38.0 L, MCV 90.0, MCH 31.8, MCHC 35.3, RDW 12.3, RDW Differential 39.9, Plt Count 215, MPV 9.9, Immature Gran % (Auto) 0.200, Neut % (Auto) 66.9, Lymph % (Auto) 19.3, [place] % (Auto) 10.8 H, Eos % (Auto) 2.5, Baso % (Auto) 0.3, Absolute Neuts (auto) 7.1, Absolute Lymphs (auto) 2.05, Total Counted Not Reportable 03/25/18 02:20: PT 14.5, INR 1.1, APTT 32.4 03/25/18 07:00: Urine Color Yellow, Urine Clarity Clear, Urine pH 5.0, Ur Specific [place] 1.020, Urine Protein Negative, Urine Glucose (UA) Normal, Urine Ketones Negative, Urine Occult Blood Negative, Urine Nitrite Negative, Urine Bilirubin Negative, Urine Urobilinogen Normal, Ur Leukocyte Esterase Negative 03/25/18 08:37: Activated Clotting Time 191 H 03/25/18 10:48: Activated Clotting Time 142 H Current Medications Acetaminophen (Tylenol) 650 mg PO Q6H PRN PRN PRN Reason: PAIN Last Admin: 03/25/18 02:20 Dose: 650 mg Acetaminophen (Tylenol) 650 mg PO Q6H PRN PRN PRN Reason: Mild Pain (0-2/10) Aspirin (Ecotrin) 81 mg PO DAILY@0800 [facility] Last Admin: 03/25/18 06:23 Dose: 81 mg Atorvastatin Calcium (Lipitor) 80 mg PO QHS [facility] Last Admin: 03/24/18 21:54 Dose: 80 mg Atropine Sulfate () 0.5 mg IV UD PRN PRN Reason: HR <50 bpm Carbidopa/Levodopa (Sinemet Cr) 0.5 tablet PO TIDAC [facility] Last Admin: 03/25/18 06:23 Dose: 0.5 tablet Clopidogrel Bisulfate (Plavix) 75 mg PO DAILY [facility] Last Admin: 03/25/18 06:23 Dose: 75 mg Cyanocobalamin (Vitamin B12) 500 mcg PO DAILY@0800 [facility] Diazepam (Valium) 5 mg PO Q6H PRN PRN PRN Reason: BACK SPASMS/ANXIETY Last Admin: 03/25/18 09:32 Dose: 5 mg Doxazosin Mesylate (Cardura) 4 mg PO QHS [facility] Last Admin: 03/24/18 21:54 Dose: 4 mg Finasteride (Proscar) 5 mg PO DAILY [facility] Gabapentin (Neurontin) 300 mg PO DAILY PRN PRN PRN Reason: takes rarely for pain Heparin Sodium (Beef Lung) (Heparin 500 Unit/5 Ml (100/Ml)) 500 unit IV UD PRN PRN Reason: HEPARIN FLUSH Sodium Chloride () 1,000 mls @ 15 mls/hr IV .Q48H [facility] Last Admin: 03/25/18 06:27 Dose: 15 mls/hr Sodium Chloride () 250 mls @ 15 mls/hr IV .[id number] PRN PRN Reason: SALINE FLUSH Sodium Chloride () 1,000 mls @ 150 mls/hr IV .Q6H40M [facility] Stop: 03/25/18 16:00 Last Admin: 03/25/18 09:33 Dose: 150 mls/hr Labetalol HCl (Trandate) 5 mg IV X1 PRN PRN Reason: SBP > 160 when pulling sheath Lorazepam (Ativan) 1 mg PO QHS [facility] Last Admin: 03/24/18 21:53 Dose: 1 mg Magnesium Hydroxide (Milk Of Magnesia) 30 ml PO DAILY PRN PRN Reason: Constipation Metoclopramide HCl (Reglan) 5 mg IV Q6 PRN PRN Reason: NAUSEA/VOMITING Nitroglycerin (Nitrostat) 0.4 mg SUBLINGUAL Q5M PRN PRN Reason: CHEST PAIN Nitroglycerin (Nitrostat) 0.4 mg SUBLINGUAL Q5M PRN PRN Reason: CARDIAC/CHEST PAIN Pantoprazole Sodium (Protonix) 20 mg PO DAILY [facility] Pyridoxine HCl (Vitamin B-6) 200 mg PO DAILY [facility] Sodium Chloride () 5 - 15 ml IV UD PRN PRN Reason: SALINE FLUSH Last Admin: 03/25/18 06:27 Dose: 10 ml Sodium Chloride () 500 ml IV BOLUS PRN PRN Reason: VASO-VAGAL PROTOCOL Medical Necessity - Tobacco Use Smoking Status: Never smoker Assessment/Plan All Active Problems (Last Updated 03/24/18 @ 19:41 by Concha Cantor DO) NSTEMI (non-ST elevated myocardial infarction) (Acute) 1. NSTEMI * Secondary to in-stent restenosis due to stent strut fracture of the mid RCA * Status post successful drug-eluting stent to the mid RCA on 03/25 * On aspirin, Plavix, high intensity statin * Monitor overnight * Cardiology following 2. Paroxysmal atrial fibrillation * Currently in normal sinus rhythm * Not on anticoagulation 3. DVT prophylaxis with SCDs Code Visit Inpatient E&M: 80555 Subs Hosp L2
[2018-03-25] MEDS: Pantoprazole Sodium 20 MG Tablet PO (13:26)
[2018-03-25] MEDS: Finasteride 5 MG Tablet PO (13:26)
[2018-03-25] MEDS: Cyanocobalamin 500 MCG Tablet PO (13:26)
[2018-03-25] MEDS: Pyridoxine HCl 100 MG Tablet 200 MG PO (13:26)
--- NOTE | 2018-03-25 13:50 | CASEMGMT ---
RN EDIE Face to Face with patient for initial transition planning/care coordination assessment. RN CM introduced self and role at [facility]. Patient lying in bed, alert and oriented. Patient willing to participate in assessment and is able to answer all questions appropriately. Care providers, pharmacy, and demographics verified. Patient wishes to discharge home, denies need for home health at this time. Patient states he has no further needs or concerns at this time. CM to follow for discharge planning needs that may arise. PCP: [facility] Specialists: Leona neurologist; Wilfredo lasting machine operator; TRACI Duong Preferred Pharmacy: [facility] Insurance: MMO Prescription Benefit: [employer] Living Will/HPOA: Yes , Berenice Lopez LNOK: Living Arrangements: Patient lives in 2 story home with , independent at home. Transportation: self/ DME/HHC: Denies needs at this time. Disposition Plan: Patient to discharge home with family support and follow-up plans in place. Carmen FRENCH, RN, CM
[2018-03-25] MEDS: Doxazosin 4 MG Tablet PO (21:17)
[2018-03-25] MEDS: LORazepam 1 MG Tablet PO (21:17)
[2018-03-25] MEDS: Atorvastatin Calcium 80 MG Tablet PO (21:17)
[2018-03-26] VITALS (11 sets, daily range): BP systolic 91–160; BP diastolic 35–70; PULSE 49–71; RESP 13–28; TEMP 36.6–36.8; O2SAT 95–99
[2018-03-26] MEDS: 0.9% NaCl Peripheral Flush Adult/Peds IV (05:10)
[2018-03-26 05:17] LABS: Hematocrit 37.3 % (40-54); Hemoglobin 12.9 g/dl (13.0-16.5); Mean Corp Hgb Conc 34.6 g/gl (32-36); Mean Corpuscular Hgb 31.6 pg (27.0-32.0); Mean Corpuscular Volume 91.4 fL (80-94); Mean Platelet Vol. 9.8 fl (6.2-12.0); Platelet Count 206 K/mm3 (150-450); RBC Distribution Width CV 12.4 % (11.6-14.6); RBC Distribution Width SD 40.6 fl (35.1-43.9); Red Blood Count 4.08 M/mm3 (4.6-6.2); Scan Indicated on CBC? Y/N NO; White Blood Count 8.2 K/mm3 (4.4-11.0)
[2018-03-26 05:26] LABS: Anion Gap 7 (5-15); BUN 22 mg/dL (7-18); BUN/Creat Ratio 23.4 RATIO (10-20); Calcium,Total 8.1 mg/dL (8.5-10.1); Chloride 109 mmol/L (98-107); Cholesterol 115 mg/dL (200); Creatinine, Serum 0.94 mg/dL (0.70-1.30); EST Glomerular Filtration Rate 86 mL/min (>60); Est Glom Filt Rate - Afr Amer 103 mL/min (>60); Estimated Creatinine Clearance 78.35 ml/min; Glucose 94 mg/dL (74-106); High Density Lipoprotein 47 mg/dL; Potassium 4.1 mmol/L (3.5-5.1); Sodium Level 143 mmol/L (136-145); Triglycerides 107 mg/dL; Very Low Density Lipoprotein 21 mg/dL (5-40)
--- NOTE | 2018-03-26 08:05 | PN.CARD_ITS ---
Subjectve: Patient doing very well overnight. Telemetry negative. Right groin is clean/dry/intact without evidence of thrills, hematoma or bruits. EKG shows n ormal sinus rhythm, no acute changes. [place] globin and creatinine within nominal limits. Objective: Vital Signs Temp Pulse Resp BP Pulse Ox 97.8 F 49 L 16 100/37 L 99 03/26/18 05:00 03/26/18 06:00 03/26/18 06:00 03/26/18 06:00 03/26/18 07:00 Oxygen Flow Rate (L/min) 2 Oxygen Delivery Method Room Air Weight: 198 lb Body Mass Index (BMI) 29.3 Intake and Output for Last 24 Hours 03/24/18 03/25/18 03/26/18 23:59 23:59 23:59 Intake Total 805.5 / 805.5 1919.7 / 1919.7 120 / 120 Output Total 450 / 450 Balance 805.5 / 805.5 1469.7 / 1469.7 120 / 120 General: Awake, Alert, Oriented x 3 HEENT: PERRL, EOMI, Sclera Non Icteric Neck: Supple, Good ROM, No Lymph Node Enlargement Lungs: Clear to auscultation Cardiovascular: Regular Rhythm, Normal S1, Normal S2, No Murmurs, No Rubs, No Gallops Vascular: No Carotid Bruits, Normal Femoral Pulses, Normal Radial Pulses, Normal Dorsalis Pedal Pulse, Normal Posterior Tibial Pulses Abdomen: Bowel Sounds Present, Soft, Non Tender, No HSM, No Organomegaly Extremities: No Cyanosis, No Clubbing, No edema Neurological: No Focal Motor or Sensory Deficit 03/26/18 05:00: WBC 8.2, RBC 4.08 L, Hgb 12.9 L, Hct 37.3 L, MCV 91.4, MCH 31.6, MCHC 34.6, RDW 12.4, RDW Differential 40.6, Plt Count 206, MPV 9.8 03/26/18 05:00: Sodium 143, Potassium 4.1, Chloride 109 H, Carbon Dioxide 27.0, Anion Gap 7, BUN 22 H, Creatinine 0.94, Est GFR (MDRD) Af Amer 103, Est GFR (MDRD) Non-Af 86, BUN/Creatinine Ratio 23.4 H, Glucose 94, Calcium 8.1 L, Triglycerides 107, Cholesterol 115, LDL Cholesterol 47, VLDL Cholesterol 21, HDL Cholesterol 47 Rhythm: EKG: ECHO: Stress Test: Cardiac Cath: PCI: CT Surgery: Holter monitor: EPS: PPM: CXR: Chest CT Scan: Medical Necessity - Tobacco Use Smoking Status: Never smoker Assessment/Plan 1. Coronary artery disease: Patient is status post unstable angina followed by positive troponin/non-STEMI, underwent catheterization yesterday which showed widely patent stents of his LAD and left circumflex and a critical lesion in his mid right coronary artery stented area most likely due to his tract fracture. The patient underwent elective angioplasty and drug-eluting stenting of this strut fracture area with an excellent result. Patient had identical symptoms during balloon and stent deployment as he did when he was at home indicating this is most likely the culprit artery. Would not recommend any additional intervention or evaluation of his other arteries. Patient has nonobstructive disease of his other subbranches. Would recommend continuing baby aspirin, Plavix, antilipid and antihypertensive therapy moving forward. Patient may be discharged home today and follow-up with our office in 2 weeks time for a groin check and blood pressure check. He will be enrolled in cardiac rehab going forward. 2. Hyperlipidemia: Continue statin based therapy. His LDL and HDL cholesterol are at goal. Continue Lipitor. 3. Patient may follow-up with Dr. Villalobos. Patient be discharged home today. Thank you very much for the opportunity to participate in the cardiac care of your patient. Code Visit Inpatient E&M: 96504 Subs Hosp L2
[2018-03-26] MEDS: CARBIDOPA/LEVODOPA CR 50/200 Tablet PO (08:26)
[2018-03-26] MEDS: Cyanocobalamin 500 MCG Tablet PO (08:26)
[2018-03-26] MEDS: Aspirin E.C. 81 MG Tablet PO (08:26)
[2018-03-26] MEDS: Pyridoxine HCl 100 MG Tablet 200 MG PO (08:27)
[2018-03-26] MEDS: Clopidogrel Bisulfate 75 MG Tablet PO (08:27)
[2018-03-26] MEDS: Pantoprazole Sodium 20 MG Tablet PO (08:27)
[2018-03-26] MEDS: Finasteride 5 MG Tablet PO (08:28)
--- NOTE | 2018-03-26 08:33 | DCINST_ITS ---
- Discharge Diagnoses Current Active Problems: Current Active and Chronic Problems (Last Updated 03/25/18 @ 12:30 by Davion Lin DO) NSTEMI (non-ST elevated myocardial infarction) (Acute) Parkinson disease (Chronic) BPH (benign prostatic hyperplasia) (Chronic) Cervical vertebral fusion (Chronic) You will use the following diet at home:: Cardiac Your food should be the consistency of: Regular Your liquids should be the consistency of: Regular/Thin Discharge Activity: Return to Normal Activity Call your doctor if you observe: Shortness of breath, Chest pain Allergies/Adverse Reactions: Allergies oxycodone HCl [From Percocet] Allergy (Intermediate, Verified 03/24/18 16:49) Itching duloxetine HCl [From Cymbalta] Adverse Reaction (Intermediate, Verified 03/24/18 16:49) Mood Change venlafaxine HCl [From Effexor] Adverse Reaction (Intermediate, Verified 03/24/18 16:49) Mood change aricept Adverse Reaction (Intermediate, Uncoded 03/24/18 16:49) GI upset Medications to take at Discharge Carbidopa/Levodopa [Sinemet Cr 25-100 Tablet] 1 ea PO TID 10/01/13 Cyanocobalamin [Vitamin B12] 500 mcg PO DAILY@0800 10/01/13 Doxazosin Mesylate [Cardura] 4 mg PO QHS 10/01/13 Finasteride [Proscar] 5 mg PO DAILY 10/01/13 Omeprazole [Prilosec] 20 mg PO DAILY 10/01/13 Pyridoxine HCl [Vitamin B6] 200 mg PO DAILY 10/01/13 Aspirin [Aspirin, Baby] 81 mg PO DAILY@0800 03/24/18 Atorvastatin Calcium [Lipitor] 80 mg PO QHS 03/24/18 Fluoxetine [Prozac] 40 mg PO DAILY 03/24/18 Clopidogrel Bisulfate [Plavix] 75 mg PO DAILY #30 tablet 03/26/18 Clopidogrel Bisulfate [Plavix] 75 mg PO DAILY #90 tab 03/26/18 The following prescriptions were given: Clopidogrel Bisulfate [Plavix] 75 mg PO DAILY #30 tablet Clopidogrel Bisulfate [Plavix] 75 mg PO DAILY #90 tab Primary Care Physician: Misael Woo III, MD [Primary Care Provider] - Test Results: Test results from this visit will be discussed in further detail at your follow- up appointment, if applicable. Please Follow Up With: Tricia Palomo PA When: Saturday Please Follow Up With: Heriberto Villalobos MD When: 4-6 weeks Proposed Discharge Date: 03/26/18
--- NOTE | 2018-03-26 08:33 | PCM.DC.SUM ---
Discharge Date and Diagnosis - Problem List Patient Problems: Active and Suspected Problems (Last Updated 03/25/18 @ 12:30 by Davion Lin DO) NSTEMI (non-ST elevated myocardial infarction) (Acute) Date of Admission: 03/24/18 Date of Discharge: 03/26/18 - Primary Discharge Diagnosis Active and Suspected Problems (Last Updated 03/25/18 @ 12:30 by Davion Lin DO) NSTEMI (non-ST elevated myocardial infarction) (Acute) - Secondary Discharge Diagnosis Chronic Problems (Last Updated 03/25/18 @ 12:30 by Davion Lin DO) Stented coronary artery (Chronic 03/25/18) 03/21/09, PTCA/stent (JUAN) to mid LAD (3.5 X 13mm Cypher) & PCI of mid LCx @ [facility]; 10/08/13 PCI JUAN mid RCA (Promus Premier 3.0 X 32mm). 03/25/2018 JUAN to mid RCA instent restenosis/strut fracture: 3.20 X 12 Promus Synergy. Parkinson disease (Chronic) BPH (benign prostatic hyperplasia) (Chronic) Cervical vertebral fusion (Chronic) long term use of drug (Chronic) Hyperlipidemia (Chronic) Atherosclerotic heart disease of [place] coronary artery without angina pectoris (Chronic) Atrial fibrillation (Chronic) History of percutaneous transluminal coronary angioplasty (Chronic) 03/21/09, PTCA/stent (JUAN) to mid LAD (3.5 X 13mm Cypher) & PCI of mid LCx @ [facility]; PCI JUAN mid RCA (Promus Premier 3.0 X 32mm) 10/08/[address] Villalobos Family history of premature coronary heart disease (Chronic) Male <55 Hospital Course and Treatment Imaging Results: Clinical Impression(s) from Imaging Studies Chest X-Ray 03/24/18 17:08 IMPRESSION: No acute cardiopulmonary pathology Electronically Signed: Carlos Sheehan MD at 17:58 EST , Service support , Operations: None Procedures: None Summary of Care Provided: The patient is a 67 year old M presents with chest pain. He underwent a LHC on 03/25 and was found to have an RCA in stent restenosis due to stent strut fracture. He received a JUAN to the mid RCA for an instent stenosis. Course was uncomplicated afterwards. He will continue with Aspirin, Plavix and atorvastatin. Follow up with cardiology. [] Patient Problems: Active and Suspected Problems (Last Updated 03/25/18 @ 12:30 by Davion Lin DO) NSTEMI (non-ST elevated myocardial infarction) (Acute) - Physical Exam General: Alert, Cooperative, No apparent distress HEENT: Atraumatic, Normocephalic Oral: Moist Mucosa, No Gingival or Mucosal Lesions/ Ulcerations Neck: No Nodes, Thyroid Normal Size and Texture Lungs: Clear to auscultation, Normal air movement, No rhonchi, No wheeze Cardiovascular: Regular rate, Regular Rhythm, Normal S1, Normal S2 Abdomen: Bowel Sounds Present, Soft, Non Tender, Non-Distended, No Hepato-splenomegaly Extremities: No edema, No Calf Tenderness Vital Signs Temp Pulse Resp BP Pulse Ox 36.6 C 49 L 16 100/37 L 99 03/26/18 05:00 03/26/18 06:00 03/26/18 06:00 03/26/18 06:00 03/26/18 07:00 Oxygen Flow Rate (L/min) 2 Oxygen Delivery Method Room Air Weight: 89.811 kg Body Mass Index (BMI) 29.3 Intake and Output for Last 24 Hours 03/24/18 03/25/18 03/26/18 23:59 23:59 23:59 Intake Total 805.5 / 805.5 1919.7 / 1919.7 120 / 120 Output Total 450 / 450 Balance 805.5 / 805.5 1469.7 / 1469.7 120 / 120 Laboratory Tests Past 24 Hrs 03/25/18 03/25/18 03/26/18 08:37 10:48 05:00 WBC 8.2 RBC 4.08 L Hgb 12.9 L Hct 37.3 L MCV 91.4 MCH 31.6 MCHC 34.6 RDW 12.4 RDW Differential 40.6 Plt Count 206 MPV 9.8 Activated Clotting Time 191 H 142 H Sodium Potassium Chloride Carbon Dioxide Anion Gap BUN Creatinine Estim Creat Clear Calc Est GFR (MDRD) Af Amer Est GFR (MDRD) Non-Af BUN/Creatinine Ratio Glucose Calcium Triglycerides Cholesterol LDL Cholesterol VLDL Cholesterol HDL Cholesterol 03/26/18 05:00 WBC RBC Hgb Hct MCV MCH MCHC RDW RDW Differential Plt Count MPV Activated Clotting Time Sodium 143 Potassium 4.1 Chloride 109 H Carbon Dioxide 27.0 Anion Gap 7 BUN 22 H Creatinine 0.94 Estim Creat Clear Calc 78.35 Est GFR (MDRD) Af Amer 103 Est GFR (MDRD) Non-Af 86 BUN/Creatinine Ratio 23.4 H Glucose 94 Calcium 8.1 L Triglycerides 107 Cholesterol 115 LDL Cholesterol 47 VLDL Cholesterol 21 HDL Cholesterol 47 Discharge Diet: Low fat/ Low Cholesterol Discharge Activity: Return to Normal Activity Call your doctor if you observe: Shortness of breath, Chest pain Home Medications: Medications to take at Discharge Carbidopa/Levodopa [Sinemet Cr 25-100 Tablet] 1 ea PO TID 10/01/13 Cyanocobalamin [Vitamin B12] 500 mcg PO DAILY@0800 10/01/13 Doxazosin Mesylate [Cardura] 4 mg PO QHS 10/01/13 Finasteride [Proscar] 5 mg PO DAILY 10/01/13 Omeprazole [Prilosec] 20 mg PO DAILY 10/01/13 Pyridoxine HCl [Vitamin B6] 200 mg PO DAILY 10/01/13 Aspirin [Aspirin, Baby] 81 mg PO DAILY@0800 03/24/18 Atorvastatin Calcium [Lipitor] 80 mg PO QHS 03/24/18 Fluoxetine [Prozac] 40 mg PO DAILY 03/24/18 Clopidogrel Bisulfate [Plavix] 75 mg PO DAILY #30 tablet 03/26/18 Clopidogrel Bisulfate [Plavix] 75 mg PO DAILY #90 tab 03/26/18 Following Prescrptions Were Given to Patient: Clopidogrel Bisulfate [Plavix] 75 mg PO DAILY #30 tablet Clopidogrel Bisulfate [Plavix] 75 mg PO DAILY #90 tab Primary Care Physician: Misael Woo III, MD [Primary Care Provider] - Please Follow Up With: Tricia Palomo PA When: Saturday Please Follow Up With: Heriberto Villalobos MD When: 4-6 weeks Disposition: Home Minutes spent on discharge:: 32 Patient Condition:: Good Medical Necessity - Tobacco Use Smoking Status: Never smoker Meaningful Use Info Meaningful Use Diagnoses (Choose all that apply): AMI - AMI Aspirin given w/in 24hrs of arrival?: Yes ASA at discharge?: Yes Statins at discharge?: Yes David/ARB at discharge?: No Reason David/ARB not ordered:: Hypotension Beta Ashley at discharge?: No Reason Beta Ashley not ordered:: Hypotension - and bradycardia Done w/ Acute [place] measure.: Yes Code Visit Inpatient E&M: 66494 Disch Hosp
--- NOTE | 2018-03-26 08:37 | DS.PCM_ITS ---
Discharge Date and Diagnosis - Problem List Patient Problems: Active and Suspected Problems (Last Updated 03/25/18 @ 12:30 by Davion Lin DO) NSTEMI (non-ST elevated myocardial infarction) (Acute) Date of Admission: 03/24/18 Date of Discharge: 03/26/18 - Primary Discharge Diagnosis Active and Suspected Problems (Last Updated 03/25/18 @ 12:30 by Davion Lin DO) NSTEMI (non-ST elevated myocardial infarction) (Acute) - Secondary Discharge Diagnosis Chronic Problems (Last Updated 03/25/18 @ 12:30 by Davion Lin DO) Stented coronary artery (Chronic 03/25/18) 03/21/09, PTCA/stent (JUAN) to mid LAD (3.5 X 13mm Cypher) & PCI of mid LCx @ [facility]; 10/08/13 PCI JUAN mid RCA (Promus Premier 3.0 X 32mm). 03/25/2018 JUAN to mid RCA instent restenosis/strut fracture: 3.20 X 12 Promus Synergy. 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 Villalobos Family history of premature coronary heart disease (Chronic) Male <55 Hospital Course and Treatment Imaging Results: Clinical Impression(s) from Imaging Studies Chest X-Ray 03/24/18 17:08 IMPRESSION: No acute cardiopulmonary pathology Electronically Signed: Carlos Sheehan MD at 17:58 EST , Service support , Operations: None Procedures: None Summary of Care Provided: The patient is a 67 year old M presents with chest pain. He underwent a LHC on 03/25 and was found to have an RCA in stent restenosis due to stent strut fracture. He received a JUAN to the mid RCA for an instent stenosis. Course was uncomplicated afterwards. He will continue with Aspirin, Plavix and atorvastat in. Follow up with cardiology. [] Patient Problems: Active and Suspected Problems (Last Updated 03/25/18 @ 12:30 by Davion Lin DO) NSTEMI (non-ST elevated myocardial infarction) (Acute) - Physical Exam General: Alert, Cooperative, No apparent distress HEENT: Atraumatic, Normocephalic Oral: Moist Mucosa, No Gingival or Mucosal Lesions/ Ulcerations Neck: No Nodes, Thyroid Normal Size and Texture Lungs: Clear to auscultation, Normal air movement, No rhonchi, No wheeze Cardiovascular: Regular rate, Regular Rhythm, Normal S1, Normal S2 Abdomen: Bowel Sounds Present, Soft, Non Tender, Non-Distended, No Hepato- splenomegaly Extremities: No edema, No Calf Tenderness Vital Signs Temp Pulse Resp BP Pulse Ox 36.6 C 49 L 16 100/37 L 99 03/26/18 05:00 03/26/18 06:00 03/26/18 06:00 03/26/18 06:00 03/26/18 07:00 Oxygen Flow Rate (L/min) 2 Oxygen Delivery Method Room Air Weight: 89.811 kg Body Mass Index (BMI) 29.3 Intake and Output for Last 24 Hours 03/24/18 03/25/18 03/26/18 23:59 23:59 23:59 Intake Total 805.5 / 805.5 1919.7 / 1919.7 120 / 120 Output Total 450 / 450 Balance 805.5 / 805.5 1469.7 / 1469.7 120 / 120 Laboratory Tests Past 24 Hrs 03/25/18 03/25/18 03/26/18 08:37 10:48 05:00 WBC 8.2 RBC 4.08 L Hgb 12.9 L Hct 37.3 L MCV 91.4 MCH 31.6 MCHC 34.6 RDW 12.4 RDW Differential 40.6 Plt Count 206 MPV 9.8 Activated Clotting Time 191 H 142 H Sodium Potassium Chloride Carbon Dioxide Anion Gap BUN Creatinine Estim Creat Clear Calc Est GFR (MDRD) Af Amer Est GFR (MDRD) Non-Af BUN/Creatinine Ratio Glucose Calcium Triglycerides Cholesterol LDL Cholesterol VLDL Cholesterol HDL Cholesterol 03/26/18 05:00 WBC RBC Hgb Hct MCV MCH MCHC RDW RDW Differential Plt Count MPV Activated Clotting Time Sodium 143 Potassium 4.1 Chloride 109 H Carbon Dioxide 27.0 Anion Gap 7 BUN 22 H Creatinine 0.94 Estim Creat Clear Calc 78.35 Est GFR (MDRD) Af Amer 103 Est GFR (MDRD) Non-Af 86 BUN/Creatinine Ratio 23.4 H Glucose 94 Calcium 8.1 L Triglycerides 107 Cholesterol 115 LDL Cholesterol 47 VLDL Cholesterol 21 HDL Cholesterol 47 Discharge Diet: Low fat/ Low Cholesterol Discharge Activity: Return to Normal Activity Call your doctor if you observe: Shortness of breath, Chest pain Home Medications: Medications to take at Discharge Carbidopa/Levodopa [Sinemet Cr 25-100 Tablet] 1 ea PO TID 10/01/13 Cyanocobalamin [Vitamin B12] 500 mcg PO DAILY@0800 10/01/13 Doxazosin Mesylate [Cardura] 4 mg PO QHS 10/01/13 Finasteride [Proscar] 5 mg PO DAILY 10/01/13 Omeprazole [Prilosec] 20 mg PO DAILY 10/01/13 Pyridoxine HCl [Vitamin B6] 200 mg PO DAILY 10/01/13 Aspirin [Aspirin, Baby] 81 mg PO DAILY@0800 03/24/18 Atorvastatin Calcium [Lipitor] 80 mg PO QHS 03/24/18 Fluoxetine [Prozac] 40 mg PO DAILY 03/24/18 Clopidogrel Bisulfate [Plavix] 75 mg PO DAILY #30 tablet 03/26/18 Clopidogrel Bisulfate [Plavix] 75 mg PO DAILY #90 tab 03/26/18 Following Prescrptions Were Given to Patient: Clopidogrel Bisulfate [Plavix] 75 mg PO DAILY #30 tablet Clopidogrel Bisulfate [Plavix] 75 mg PO DAILY #90 tab Primary Care Physician: Misael Woo III, MD [Primary Care Provider] - Please Follow Up With: Tricia Palomo PA When: Saturday Please Follow Up With: Heriberto Villalobos MD When: 4-6 weeks Disposition: Home Minutes spent on discharge:: 32 Patient Condition:: Good Medical Necessity - Tobacco Use Smoking Status: Never smoker Meaningful Use Info Meaningful Use Diagnoses (Choose all that apply): AMI - AMI Aspirin given w/in 24hrs of arrival?: Yes ASA at discharge?: Yes Statins at discharge?: Yes David/ARB at discharge?: No Reason David/ARB not ordered:: Hypotension Beta Ashley at discharge?: No Reason Beta Ashley not ordered:: Hypotension - and bradycardia Done w/ Acute [place] measure.: Yes Code Visit Inpatient E&M: [id number] Disch Hosp
--- NOTE | 2018-03-26 10:00 | EKG12_ITS ---
Test Reason : AM EKG Blood Pressure : / mmHG Vent. Rate : 055 BPM Atrial Rate : 055 BPM P-R Int : 190 ms QRS Dur : 094 ms QT Int : 456 ms P-R-T Axes : 013 -19 017 degrees QTc Int : 436 ms Poor data quality, interpretation may be adversely affected Sinus bradycardia Otherwise normal ECG When compared with ECG of 25-MAR-2018 09:10, MANUAL COMPARISON REQUIRED, DATA IS UNCONFIRMED Confirmed by RADHA AMIN, DAVID ([id number]), advertising editor JEZ MACIAS ([id number]) on 03/28/2018 11:11:09 AM Referred By: ERIC Confirmed By:DAVID GARCIA MD
--- OUTSIDE RECORDS SUMMARY | 2018-05-11 02:32 | XMS RPT_ITS ---
:1950 Author Organization OHIP Support Name Relationship Address Phone D Unavailable Unavailable Unavailable MEHNAZBERENICE ALDRICH Unavailable [address] + [place] [address] D Unavailable Unavailable Unavailable RONNY BERENICE Unavailable [address] + [place] [address] D Unavailable Unavailable Unavailable RONNY BERENICE Unavailable [address] + [place] [address] D Unavailable Unavailable Unavailable RONNY BERENICE Unavailable [address] + [place] [address] D Unavailable Unavailable Unavailable RONNY BERENICE Unavailable [address] + [place] [address] D Unavailable Unavailable Unavailable BERENICE LOPEZ Unavailable [address] + [place] [address] D Unavailable Unavailable Unavailable BERENICE LOPEZ Unavailable [address] + [place] [address] D Unavailable Unavailable Unavailable RONNY BERENICE Unavailable [address] + [place] [address] D Unavailable Unavailable Unavailable BERENICE LOPEZ Unavailable [address] + [place] [address] D Unavailable Unavailable Unavailable RONNY BERENICE Unavailable [address] + [place] [address] D Unavailable Unavailable Unavailable RONNY BERENICE Unavailable [address] + [place] [address] D Unavailable Unavailable Unavailable RONNY BERENICE Unavailable [address] + [place] [address] Care Team Providers Name Role Phone MISAEL WOO III Attending Unavailable MISAEL WOO III Referring Unavailable Misael Woo III Primary Care Unavailable Daysi Jennings Admitting Unavailable Davion Lin Attending Unavailable Daysi Jennings Admitting Unavailable Sementi, Daysi Attending Unavailable Cebul III, Misael Primary Care Unavailable Sementi, Daysi Consulting Unavailable Sementi, Daysi Admitting Unavailable Jopperi, Davion Attending Unavailable Cebul III, Misael Primary Care Unavailable Jopperi, Davion Consulting Unavailable Sementi, Daysi Admitting Unavailable Heriberto Villalobos Attending Unavailable Cebul III, Misael Primary Care Unavailable Jopperi, Davion Consulting Unavailable Tricia Palomo Attending Unavailable Cebul III, Misael Referring Unavailable Cebul III, Misael Primary Care Unavailable DeFinisHusseinumi Attending Unavailable PalomoTricia padgett Attending Unavailable Tricia Palomo Referring Unavailable Cebul III, Misael Primary Care Unavailable Heriberto Villalobos Attending Unavailable Cebul III, Misael Referring Unavailable Cebul III, Misael Primary Care Unavailable Heriberto Villalobos Attending Unavailable Villalobos, Heriberto Referring Unavailable Cebul III, Misael Primary Care Unavailable Sementi, Daysi Admitting Unavailable Jopperi, Davion Attending Unavailable Cebul III, Misael Primary Care Unavailable Jopperi, Davion Consulting Unavailable Tricia Palomo Attending Unavailable Cebul III, Misael Referring Unavailable Magy, Ken Attending Unavailable Sementi, Daysi Referring Unavailable PROBLEMS PROBLEMS DATE TYPE CONDITION / CODE ATTENDING STATUS SOURCE 12/03/2017 Unknown I25.10 - Heriberto Villalobos Active [place] Atherosclerotic heart Pending Sale To [facility] disease of [facility] coronary artery Repository without angina pectoris / I25.10(ICD-10) 12/03/2017 Unknown E78.5 - Heriberto Villalobos Active [place] Hyperlipidemia, Community unspecified / Hospital E78.5(ICD-10) Repository PROCEDURES PROCEDURES No Procedure Records FoundRESULTS RESULTS CARDIOLOGY VISIT Observed: 04/09/2018 Status: F Source: [facility] RE[facility] 1:50 PM [facility] REPOSITORY [facility] [address] [place] [address] OFFICE VISIT Date of Service: 04/09/18 MR#: [id number] Acct: [id number] Name: JESSI LOPEZ Rep #: [id number] : 1950 Provider: Tricia Palomo Age/Sex: 67/M [place] [facility] [place]: Signed [facility] HPI Chief Complaint: Chest Pain Details: JESSI LOPEZ, is a 67 M who presents to the office today for a hospital follow-up. He has a history of coronary artery disease with angioplasty and stenting to his LAD and circumflex in 2009, and stenting to his RCA in 2013 and in 2018. He also has a history of hypertension and hyperlipidemia. Patient had presented to the emergency room earlier this month with chest discomfort during exertional activity. This was a one-time event. He underwent a heart catheterization and he was noted to have in-stent restenosis of his RCA that was felt to be related to a fractured stretch on his stent. Since his recent stenting he has been doing well. He does not have any chest discomfort/heaviness/tightness. His exercise tolerance is stable for his age. He does not have any worsening symptoms of shortness of breath. He denies any PND. He does not have any orthopnea. He does not have any symptoms of congestive heart failure. He does not have any palpitations that he is aware of. He does not have any lightheadedness or dizziness. He does not have any near-syncope or syncope. He does not have any lower extremity edema. He does not have any symptoms of claudication. Intake Vital Signs04/09/18 Height 5 ft 9 in 04/09/18 Weight: 210 lb 04/09/18 Body Mass Index (BMI) 31.0 04/09/18 Blood Pressure 142/68 H 04/09/18 Blood Pressure Location Lt brachial Intake Visit Reasons: 2 WK S/P PCI Equity Analyst Required: No Accompanied by: none Is patient in pain?: No Allergies oxycodone HCl [From Percocet] Allergy (Intermediate, Verified 04/09/18 10:34) Itching duloxetine HCl [From Cymbalta] Adverse Reaction (Intermediate, Verified 04/09/18 10:34) Mood Change venlafaxine HCl [From Effexor] Adverse Reaction (Intermediate, Verified 04/09/18 10:34) Mood change aricept Adverse Reaction (Intermediate, Uncoded 03/24/18 16:49) GI upset Medications Carbidopa/Levodopa [Sinemet Cr 25-100 Tablet] 1 ea PO TID 10/01/13 [History Confirmed 04/09/18] Cyanocobalamin [Vitamin B12] 500 mcg PO DAILY@0800 10/01/13 [History Confirmed 04/09/18] Doxazosin Mesylate [Cardura] 4 mg PO QHS 10/01/13 [History Confirmed 04/09/18] Finasteride [Proscar] 5 mg PO DAILY 10/01/13 [History Confirmed 04/09/18] Omeprazole [Prilosec] 20 mg PO DAILY 10/01/13 [History Confirmed 04/09/18] Pyridoxine HCl [Vitamin B6] 200 mg PO DAILY 10/01/13 [History Confirmed 04/09/18] Aspirin [Aspirin, Baby] 81 mg PO DAILY@0800 03/24/18 [History Confirmed 04/09/18] Atorvastatin Calcium [Lipitor] 80 mg PO QHS 03/24/18 [History Confirmed 04/09/18] Fluoxetine [Prozac] 40 mg PO DAILY 03/24/18 [History Confirmed 04/09/18] clopidogrel 75 mg tablet 75 mg PO DAILY #90 tab 04/09/18 [Rx Confirmed 04/09/18] PFSH Medical History Cervical vertebral fusion (Chronic) skilled nursing use of drug (Chronic) Hyperlipidemia (Chronic) Atherosclerotic heart disease of [place] coronary artery without angina pectoris (Chronic) Atrial fibrillation (Chronic) Family history of premature coronary heart disease (Chronic) Surgical History Stented coronary artery (Chronic 03/25/18) History of percutaneous transluminal coronary angioplasty (Chronic) Family History Father Myocardial infarction Heart disease Mother Cancer Brother Myocardial infarction Sister Cancer Social History Smoking Status: Never smoker alcohol intake: never substance use type: does not use caffeine: Yes Type: carbonated beverages what type of physical activity do you participate in: walking frequency: 3-4 times per week duration: 15-30 minutes/day seatbelt use: always do you feel safe at home: Yes ROS Const Const: Negative for weakness, fatigue, fever(s) or headache(s) Eyes Eyes: Negative for blind spots, loss of peripheral vision or transient loss of vision ENT ENT: Negative for headache(s), dizziness, tinnitus or Nosebleed/epistaxis Cardio Chest Pain: No Palpitations: No Edema: None Muscle aches with walking: None Resp Respiratory: Negative for SOB with activity, SOB at rest, SOB orthopnea\SOB lying down or Cough GI GI: Negative nausea, vomiting, heartburn or vomiting blood/hematemesis : Negative for hematuria Musc Musc: Negative for muscle aches/ myalgia Neuro Neuro: Negative for weakness, headache(s), dizziness, near syncope, syncope, lightheadedness or orthostatic symptoms Jose Hematologic/Lymphatic: Negative for easy bleeding Endo Endo: Negative for fatigue Cardiology Exam Const Appearance: cooperative, no acute distress and well developed Orientation: alert, awake and oriented x3 Head Head: normocephalic and atraumatic Mouth: moist mucous membranes Eyes General: appearance normal, both eyes and all related structures Conjunctivae: conjunctivae normal Pupils: PERRL EOM: EOM intact bilaterally Neck Neck: normal visual inspection, no lymphadenopathy and no JVD Carotids: Negative bruit Neck Mass: Negative Neck mass Chest Chest inspection: normal inspection of the chest and symmetric chest movement Auscultation: Bilateral: Clear to Auscultation Cardio Palpation: normal PMI Rate: regular rate Rhythm: regular rhythm Heart sounds: S1 normal and S2 normal; negative rub, gallop or murmur GI GI: normal to inspection, soft, no hepatosplenomegaly and bowel sounds present; negative tender Neuro General: alert, awake, oriented x3, CN's II-XI intact bilaterally and moves all extremities Extremities Pulses: Normal: Right Posterior Tibial Pulse, Left Posterior Tibial Pulse, Right Radial Pulse, Left Radial Pulse Lower Extremity Edema: None: Bilateral Psych Psychological: normal affect Assessment AND Plan 1. Atherosclerosis of [place] coronary artery of [place] heart without angina pectoris I25.10 Plan Patient has not had any symptoms of angina. He will continue with current aggressive medical management and risk factor modification. He would like to do cardiac rehab at the [facility] as this is where he is done his rehab previously. 2. Pure hypercholesterolemia E78.00 Plan Recent lipid profile demonstrates total cholesterol 115, HDL 47, LDL 47. Patient will continue with his current high-dose statin. Plan Detail Other Medications Refilled: Additional Comments Thank you for allowing us to participate in patient's plan of care, if you have any questions please do not hesitate to call. This note was generated using a voice recognition system and there may be incorrect words, spelling or punctuation errors that were not noted when reviewing the office note prior to saving. Follow Up 04/09/18 (Keep as is, please print cardiac rehab order for pt- thanks) Coding Level of Care Code Off vis,est,level 3 Diagnoses Atherosclerosis of [place] coronary artery of [place] heart without angina pectoris I25.10 [place] vs. transplanted heart: [place] heart Pure hypercholesterolemia E78.00 Hyperlipidemia type: pure hypercholesterolemia Coding Level of Care Code Off vis,est,level 3 Diagnoses Atherosclerosis of [place] coronary artery of [place] heart without angina pectoris I25.10 [place] vs. transplanted heart: [place] heart Pure hypercholesterolemia E78.00 Hyperlipidemia type: pure hypercholesterolemia 04/09/18 1350 <Electronically signed by Tricia ARAMBULA> Date Tricia ARAMBULA Cosigner Signature: Date (if applicable) CC: Misael Woo III, MD 12 LEAD ELECTROCARDIOGRAM Observed: 03/28/2018 Status: F Source: [facility] 11:37 AM [facility] REPOSITORY [facility] Cardiovascular Services [address] [place] [address] 12 Lead EKG 03/24/182035 MR#: [id number] Acct: [id number] Name: JESSI LOPEZ Rep #: [id number] : 1950 67 From: Osiel Charles MD Attending Dr: Davion Lin DO Status: DIS IN Ordering Dr: Concha Jennings DO Date: 03/24/18 Location: ICU Sex: M C Admitted: 03/24/18 Test Reason : CP ADMIT Blood Pressure : / mmHG Vent. Rate : 060 BPM Atrial Rate : 060 BPM P-R Int : 182 ms QRS Dur : 096 ms QT Int : 408 ms P-R-T Axes : 058 -37 022 degrees QTc Int : 408 ms Normal sinus rhythm Left axis deviation Abnormal ECG Confirmed by MELVIN AMIN, OSIEL ([id number]), medical transcription editor JEZ MACIAS ([id number]) on 03/28/2018 11:37:28 AM Referred By: DR JENNINGS Confirmed By:OSIEL CHARLES MD 03/28/18 1137 Date Osiel Charles MD CC: Daysi Jennings; Davion Lin DO; Misael Woo III, MD Signed 12 LEAD ELECTROCARDIOGRAM Observed: 03/28/2018 Status: F Source: [place] 11:30 AM [facility] Cardiovascular Services [address] [place] [address] 12 Lead EKG 03/25/18 0545 MR#: [id number] Acct: [id number] Name: JESSI LOPEZ Rep #: [id number] : 1950 67 From: Osiel Charles MD Attending Dr: Davion Lin DO Status: DIS IN Ordering Dr: Concha Jennings DO Date: 03/25/18 Location: ICU Sex: Concha Smith Admitted: 03/24/18 Test Reason : AM EKG Blood Pressure : / mmHG Vent. Rate : 054 BPM Atrial Rate : 054 BPM P-R Int : 200 ms QRS Dur : 096 ms QT Int : 438 ms P-R-T Axes : 015 -10 025 degrees QTc Int : 415 ms Sinus bradycardia Otherwise normal ECG Confirmed by MELVIN AMIN, OSIEL ([id number]), medical transcription editor JEZ MACIAS ([id number]) on 03/28/2018 11:29:38 AM Referred By: DR JENNINGS Confirmed By:OSIEL CHARLES MD 03/28/18 1129 Date Osiel Charles MD CC: Daysi Jennings; Davion Lin DO; Misael Woo III, MD Signed 12 LEAD ELECTROCARDIOGRAM Observed: 03/28/2018 Status: F Source: [place] 11:11 AM [facility] Cardiovascular Services [address] [place] [address] 12 Lead EKG 03/26/18 0458 MR#: [id number] Acct: [id number] Name: JESSI LOPEZ Rep #: [id number] : 1950 67 From: Ken Bhatti MD Attending Dr: Davion Lin DO Status: DIS IN Ordering Dr: Heriberto Villalobos MD Date: 03/26/18 Location: ICU Sex: M C Admitted: 03/24/18 Test Reason : AM EKG Blood Pressure : / mmHG Vent. Rate : 055 BPM Atrial Rate : 055 BPM P-R Int : 190 ms QRS Dur : 094 ms QT Int : 456 ms P-R-T Axes : 013 -19 017 degrees QTc Int : 436 ms Poor data quality, interpretation may be adversely affected Sinus bradycardia Otherwise normal ECG When compared with ECG of 25-MAR-2018 09:10, MANUAL COMPARISON REQUIRED, DATA IS UNCONFIRMED Confirmed by KEN BHATTI MD ([id number]), medical transcription editor JEZ MACIAS ([id number]) on 03/28/2018 11:11:09 AM Referred By: ERIC Confirmed By:KEN BHATTI MD 03/28/18 1111 Date Ken Bhatti MD CC: Heriberto Villalobos MD; Davion Lin DO; Misael Woo III, MD Signed 12 LEAD ELECTROCARDIOGRAM Observed: 03/28/2018 Status: F Source: [facility] 11:11 AM [facility] REPOSITORY [facility] Cardiovascular Services [address] [place] [address] 12 Lead EKG 03/25/18 0910 MR#: [id number] Acct: [id number] Name: JESSI LOPEZ Rep #: [id number] : 1950 67 From: Ken Bhatti MD Attending Dr: Davion Lin DO Status: DIS IN Ordering Dr: Heriberto Villalobos MD Date: 03/25/18 Location: ICU Sex: M C Admitted: 03/24/18 Test Reason : S Blood Pressure : / mmHG Vent. Rate : 055 BPM Atrial Rate : 055 BPM P-R Int : 188 ms QRS Dur : 096 ms QT Int : 436 ms P-R-T Axes : 018 -14 027 degrees QTc Int : 417 ms Sinus bradycardia Otherwise normal ECG When compared with ECG of 25-MAR-2018 05:45, MANUAL COMPARISON REQUIRED, DATA IS UNCONFIRMED Confirmed by KEN BHATTI MD ([id number]), medical transcription editor JEZ MACIAS ([id number]) on 03/28/2018 11:11:32 AM Referred By: JYOTSNA MAHER Confirmed By:KEN BHATTI MD 03/28/18 1111 Date Ken Bhatti MD CC: Heriberto Villalobos MD; Davion Lin DO; Misael Woo III, MD Signed 12 LEAD ELECTROCARDIOGRAM Observed: 03/28/2018 Status: F Source: [facility] 10:47 AM [facility] REPOSITORY [facility] Cardiovascular Services [facility] [place] [address] 12 Lead EKG 03/24/18 1652 MR#: [id number] Acct: [id number] Name: JESSI LOPEZ Rep #: [id number] : 1950 67 From: Ken Bhatti MD Attending Dr: Davion Lin DO Status: DIS IN Ordering Dr: Kip Chappell MD Date: 03/24/18 Location: ICU Sex: M C Admitted: 03/24/18 Test Reason : CHEST PAIN Blood Pressure : / mmHG Vent. Rate : 091 BPM Atrial Rate : 091 BPM P-R Int : 166 ms QRS Dur : 094 ms QT Int : 352 ms P-R-T Axes : 054 -34 047 degrees QTc Int : 432 ms Normal sinus rhythm Left axis deviation Pulmonary disease pattern Abnormal ECG Confirmed by KEN BHATTI MD ([id number]), medical transcription editor JEZ MACIAS ([id number]) on 03/28/2018 10:47:02 AM Referred By: GURPREET Confirmed By:KEN BHATTI MD 03/28/18 1047 Date Ken Bhatti MD CC: MD Saniya Chappell; Davion Woo III, MD Signed DISCHARGE SUMMARY Observed: 03/26/2018 Status: F Source: [place] 8:41 AM [facility] REPOSITORY [facility] Medical Records Department [address] [place] [address] Discharge Summary 03/26/18 0833 MR#: [id number] Acct: [id number] Name: JESSI LOPEZ Rep #: [id number] : 1950 67 From: Davion Lin DO PCP: Misael Woo III, MD Status: ADM IN Y Location: ICU [id number] Discharge Date and Diagnosis - Problem List Patient Problems: Active and Suspected Problems (Last Updated 03/25/18 @ 12:30 by Davion Lin DO) NSTEMI (non-ST elevated myocardial infarction) (Acute) Date of Admission: 03/24/18 Date of Discharge: 03/26/18 - Primary Discharge Diagnosis Active and Suspected Problems (Last Updated 03/25/18 @ 12:30 by Davion Lin DO) NSTEMI (non-ST elevated myocardial infarction) (Acute) - Secondary Discharge Diagnosis Chronic Problems (Last Updated 03/25/18 @ 12:30 by Davion Lin DO) Stented coronary artery (Chronic 03/25/18) 03/21/09, PTCA/stent (JUAN) to mid LAD (3.5 X 13mm Cypher) AND PCI of mid LCx @ [facility]; 10/08/13 PCI JUAN mid RCA (Promus Premier 3.0 X 32mm). 03/25/2018 JUAN to mid RCA instent restenosis/strut fracture: 3.20 X 12 Promus Synergy. Parkinson disease (Chronic) BPH (benign prostatic hyperplasia) (Chronic) Cervical vertebral fusion (Chronic) skilled nursing use of drug (Chronic) Hyperlipidemia (Chronic) Atherosclerotic heart disease of [place] coronary artery without angina pectoris (Chronic) Atrial fibrillation (Chronic) History of percutaneous transluminal coronary angioplasty (Chronic) 03/21/09, PTCA/stent (JUAN) to mid LAD (3.5 X 13mm Cypher) AND PCI of mid LCx @ [facility]; PCI JUAN mid RCA (Promus Premier 3.0 X 32mm) 10/08/[address] Villalobos Family history of premature coronary heart disease (Chronic) Male <55 Hospital Course and Treatment Imaging Results: Clinical Impression(s) from Imaging Studies Chest X-Ray 03/24/18 17:08 IMPRESSION: No acute cardiopulmonary pathology Electronically Signed: Carlos Sheehan MD at 17:58 EST , Service support , Operations: None Procedures: None Summary of Care Provided: The patient is a 67 year old M presents with chest pain. He underwent a LHC on 03/25 and was found to have an RCA in stent restenosis due to stent strut fracture. He received a JUAN to the mid RCA for an instent stenosis. Course was uncomplicated afterwards. He will continue with Aspirin, Plavix and atorvastatin. Follow up with cardiology. [] Patient Problems: Active and Suspected Problems (Last Updated 03/25/18 @ 12:30 by Davion Lin DO) NSTEMI (non-ST elevated myocardial infarction) (Acute) - Physical Exam General: Alert, Cooperative, No apparent distress HEENT: Atraumatic, Normocephalic Oral: Moist Mucosa, No Gingival or Mucosal Lesions/ Ulcerations Neck: No Nodes, Thyroid Normal Size and Texture Lungs: Clear to auscultation, Normal air movement, No rhonchi, No wheeze Cardiovascular: Regular rate, Regular Rhythm, Normal S1, Normal S2 Abdomen: Bowel Sounds Present, Soft, Non Tender, Non-Distended, No Hepato-splenomegaly Extremities: No edema, No Calf Tenderness Vital Signs Temp Pulse Resp BP Pulse Ox 36.6 C 49 L 16 100/37 L 99 03/26/18 05:00 03/26/18 06:00 03/26/18 06:00 03/26/18 06:00 03/26/18 07:00 Oxygen Flow Rate (L/min) 2 Oxygen Delivery Method Room Air Weight: 89.811 kg Body Mass Index (BMI) 29.3 Intake and Output for Last 24 Hours Intake Total 805.5 / 805.5 1919.7 / 1919.7 120 / 120 Output Total 450 / 450 Balance 805.5 / 805.5 1469.7 / 1469.7 120 / 120 Laboratory Tests Past 24 Hrs WBC RBC Hgb Hct MCV MCH MCHC RDW RDW Differential Plt Count MPV Activated Clotting Time Discharge Diet: Low fat/ Low Cholesterol Discharge Activity: Return to Normal Activity Call your doctor if you observe: Shortness of breath, Chest pain Home Medications: Medications to take at Discharge Carbidopa/Levodopa [Sinemet Cr 25-100 Tablet] 1 ea PO TID 10/01/13 Cyanocobalamin [Vitamin B12] 500 mcg PO DAILY@0800 10/01/13 Doxazosin Mesylate [Cardura] 4 mg PO QHS 10/01/13 Finasteride [Proscar] 5 mg PO DAILY 10/01/13 Omeprazole [Prilosec] 20 mg PO DAILY 10/01/13 Pyridoxine HCl [Vitamin B6] 200 mg PO DAILY 10/01/13 Aspirin [Aspirin, Baby] 81 mg PO DAILY@0800 03/24/18 Atorvastatin Calcium [Lipitor] 80 mg PO QHS 03/24/18 Fluoxetine [Prozac] 40 mg PO DAILY 03/24/18 Clopidogrel Bisulfate [Plavix] 75 mg PO DAILY #30 tablet 03/26/18 Clopidogrel Bisulfate [Plavix] 75 mg PO DAILY #90 tab 03/26/18 Following Prescrptions Were Given to Patient: Clopidogrel Bisulfate [Plavix] 75 mg PO DAILY #30 tablet Clopidogrel Bisulfate [Plavix] 75 mg PO DAILY #90 tab Primary Care Physician: Misael Woo III, MD [Primary Care Provider] - Please Follow Up With: Tricia Palomo PA When: Saturday Please Follow Up With: Heriberto Villalobos MD When: 4-6 weeks Disposition: Home Minutes spent on discharge:: 32 Patient Condition:: Good Medical Necessity - Tobacco Use Smoking Status: Never smoker Meaningful Use Info Meaningful Use Diagnoses (Choose all that apply): AMI - AMI Aspirin given w/in 24hrs of arrival?: Yes ASA at discharge?: Yes Statins at discharge?: Yes David/ARB at discharge?: No Reason David/ARB not ordered:: Hypotension Beta Ashley at discharge?: No Reason Beta Ashley not ordered:: Hypotension - and bradycardia Done w/ Acute PA measure.: Yes Code Visit Inpatient E AND M: [id number] Disch Hosp 03/26/18 0841 <Electronically signed by Davion Lin DO> Date Davion Lin DO Cosigner Signature (if applicable): Date CC: Davion Lin DO; Misael Woo III, MD Signed DISCHARGE INSTRUCTION Observed: 03/26/2018 Status: F Source: [place] 8:33 AM [facility] REPOSITORY [facility] Medical Records Department [address] [place] [address] Instructions for Home/Discharge Instructions 03/26/18830 MR#: [id number] Acct: [id number] Name: JESSI LOPEZ Rep #: [id number] : 1950 67 From: Davion Lin DO PCP: Misael Woo III, MD Status: ADM IN - Discharge Diagnoses Current Active Problems: Current Active and Chronic Problems (Last Updated 03/25/18 @ 12:30 by Davion Lin DO) NSTEMI (non-ST elevated myocardial infarction) (Acute) Parkinson disease (Chronic) BPH (benign prostatic hyperplasia) (Chronic) Cervical vertebral fusion (Chronic) You will use the following diet at home:: Cardiac Your food should be the consistency of: Regular Your liquids should be the consistency of: Regular/Thin Discharge Activity: Return to Normal Activity Call your doctor if you observe: Shortness of breath, Chest pain Allergies/Adverse Reactions: Allergies oxycodone HCl [From Percocet] Allergy (Intermediate, Verified 03/24/18 16:49) Itching duloxetine HCl [From Cymbalta] Adverse Reaction (Intermediate, Verified 03/24/18 16:49) Mood Change venlafaxine HCl [From Effexor] Adverse Reaction (Intermediate, Verified 03/24/18 16:49) Mood change aricept Adverse Reaction (Intermediate, Uncoded 03/24/18 16:49) GI upset Medications to take at Discharge Carbidopa/Levodopa [Sinemet Cr 25-100 Tablet] 1 ea PO TID 10/01/13 Cyanocobalamin [Vitamin B12] 500 mcg PO DAILY@0800 10/01/13 Doxazosin Mesylate [Cardura] 4 mg PO QHS 10/01/13 Finasteride [Proscar] 5 mg PO DAILY 10/01/13 Omeprazole [Prilosec] 20 mg PO DAILY 10/01/13 Pyridoxine HCl [Vitamin B6] 200 mg PO DAILY 10/01/13 Aspirin [Aspirin, Baby] 81 mg PO DAILY@0800 03/24/18 Atorvastatin Calcium [Lipitor] 80 mg PO QHS 03/24/18 Fluoxetine [Prozac] 40 mg PO DAILY 03/24/18 Clopidogrel Bisulfate [Plavix] 75 mg PO DAILY #30 tablet 03/26/18 Clopidogrel Bisulfate [Plavix] 75 mg PO DAILY #90 tab 03/26/18 The following prescriptions were given: Clopidogrel Bisulfate [Plavix] 75 mg PO DAILY #30 tablet Clopidogrel Bisulfate [Plavix] 75 mg PO DAILY #90 tab Primary Care Physician: Misael Woo III, MD [Primary Care Provider] - Test Results: Test results from this visit will be discussed in further detail at your follow-up appointment, if applicable. Please Follow Up With: Tricia Palomo PA When: Saturday Please Follow Up With: Heriberto Villalobos MD When: 4-6 weeks Proposed Discharge Date: 03/26/18 03/26/18 0833 <Electronically signed by Davion Lin DO> Date Davion Lin DO CC: Misael Woo III, MD CBC-COMPLETE BLOOD CNT Collected: 03/26/2018 Status: F Source: NORM NO DIFF 5:00 AM [facility] REPOSITORY TYPE CODE TESTS RESULT OUT OF RANGE REFERENCE UNITS LAB L100.1000 4.4-11.0 K/mm3 Normal WBC 8.2 LAB L100.1200 4.6-6.2 M/mm3 Low RBC 4.08 LAB L100.1300 13.0-16.5 g/dl Low HGB 12.9 LAB L100.1400 40-54 % Low HCT 37.3 LAB L100.1500 80-94 fL Normal MCV 91.4 LAB L100.1600 27.0-32.0 pg Normal MCH 31.6 LAB L100.1700 32-36 g/gl Normal MCHC 34.6 LAB L100.1810 11.6-14.6 % Normal RDW CV 12.4 LAB L100.1820 35.1-43.9 fl Normal RDW SD 40.6 LAB L100.1900 150-450 K/mm3 Normal PLT 206 LAB L100.2000 6.2-12.0 fl Normal MPV 9.8 Performed By: #### L100.0500 #### [facility] [address] [place], [place], [id number] BASIC METABOLIC Collected: 03/26/2018 Status: F Source: NORM PROFILE (BMP) 5:00 AM [facility] REPOSITORY TYPE CODE TESTS RESULT OUT OF RANGE REFERENCE UNITS LAB L501.0100 74-106 mg/dL Normal GLU 94 Result Comment: Please note revised GLUCOSE reference range effective 2017. LAB L501.1000 7-18 mg/dL High BUN 22 LAB L501.1100 0.70-1.30 mg/dL Normal CREAT,SERUM 0.94 Result Comment: The validity of the calculated GFR AND GFRAA in patients over 70 years has not been determined. Clinical correlation is essential. LAB L501.1110 >60 mL/min Normal EST GFR 86 Result Comment: Non- GFR Calc LAB L501.1115 >60 mL/min Normal EST GFR - AA 103 Result Comment: GFR Calc LAB L501.1255 ml/min Normal Estimated CRCL 78.35 LAB L501.1300 10-20 RATIO High BUN/CRE 23.4 LAB L501.2200 8.5-10 mg/dL Low .1 CA 8.1 LAB L501.5300 136-14 mmol/L Normal 5 NA 143 LAB L501.5600 3.5-5. mmol/L Normal 1 K 4.1 LAB L501.5900 98-107 mmol/L High CL 109 LAB L501.6100 21.0-3 mmol/L Normal 2.0 CO2 27.0 LAB L501.6200 5-15 Normal GAP 7 Performed By: #### L500.2500, L500.4100 #### [facility] [address] [place], [address] LIPID PROFILE Collected: 03/26/2018 Status: F Source: NORM 5:00 AM [facility] REPOSITORY TYPE CODE TESTS RESULT OUT OF RANGE REFERENCE UNITS LAB L501.4900 200 mg/dL Normal CHOL 115 Result Comment: <200 mg/dL Desirable 200-240 mg/dL Borderline >240 mg/dL High Risk LAB L501.5000 mg/dL Normal TRIG 107 Result Comment: The drugs N-Acetylcysteine and Metamizole may falsely depress this assay. Serum Triglycerides Reference Interval Normal <150 mg/dL Borderline high 150 - 199 mg/dL High 200 - 499 mg/dL Very High > or = 500 mg/dL LAB L501.6400 mg/dL Normal HDL 47 Result Comment: The drugs N-Acetylcysteine and Metamizole may falsely depress this assay. Reference Range HDL <40 mg/dL Low HDL Cholesterol HDL >or= 60 mg/dL High HDL Cholesterol LAB L501.6500 0-130 mg/dL Normal LDL 47 LAB L501.6600 5-40 mg/dL Normal VLDL 21 Performed By: #### L500.2500, L500.4100 #### [facility] [address] [place], [address] ACT ACTIVATED CLOTTING Collected: 03/25/2018 Status: F Source: NORM TIME 10:48 AM [facility] REPOSITORY TYPE CODE TESTS RESULT OUT OF RANGE REFERENCE UNITS LAB L9100.0100 74-137 sec High ACTk CLOT 142 TIME Performed By: #### L9100.0100 #### [facility] Point of Care [address] [place] [address] CONSULTATION Observed: 03/25/2018 Status: F Source: NORM 10:36 AM [facility] REPOSITORY [facility] Medical Records Department [address] [place] [address] Consultation 03/24/18 1752 MR#: [id number] Acct: [id number] Name: JESSI LOPEZ Rep #: [id number] : 1950 67 From: Ken Bhatti MD PCP: Misael Woo III, MD Status: ADM IN Y Location: ICU [id number] Reason for Consult Date of Consultation: 03/24/18 Reason for Consultation: Chest discomfort History of Present Illness: JESSI LOPEZ, is a 67 M who presents to the emergency room this afternoon with chest discomfort. He says that he was engaged in heavy exertional activity this afternoon and then started experiencing chest discomfort described as a heaviness he sat down for a few minutes and the chest discomfort seemed to ease. He however continued to have it with mild radiation to the left arm. He called and was brought to the emergency room and by the time he got to the emergency room he was free of any significant discomfort. An EKG which was done demonstrated normal sinus rhythm with no acute changes. He was however concerned about the extent of the chest discomfort. He says that in the past stress tests have not demonstrated any abnormality though he has had disease. He has a history of coronary artery disease with angioplasty and stenting to his LAD and circumflex in 2008, and IVUS guided stenting to his RCA in 2013. He also has a history of hypertension and hyperlipidemia. He has not had any dizziness or diaphoresis no near syncope or syncope. He has been compliant with all his medications. He is currently pain-free. Past Medical History Allergies/Adverse Reactions: Allergies oxycodone HCl [From Percocet] Allergy (Intermediate, Verified 03/24/18 16:49) Itching duloxetine HCl [From Cymbalta] Adverse Reaction (Intermediate, Verified 03/24/18 16:49) Mood Change venlafaxine HCl [From Effexor] Adverse Reaction (Intermediate, Verified 03/24/18 16:49) Mood change aricept Adverse Reaction (Intermediate, Uncoded 03/24/18 16:49) GI upset Home Medications: Ambulatory Orders Medication Instructions Recorded Carbidopa/Levodopa [Sinemet Cr 1 ea PO TID 10/01/13 25-100 Tablet] Cyanocobalamin [Vitamin B12] 500 mcg PO DAILY@0800 10/01/13 Past Medical History (Chronic Problems): Chronic Problems (Last Reviewed 12/02/17 @ 13:17 by Tiffany Valdez) 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 Villalobos Family history of premature coronary heart disease (Chronic) Male <55 Surgical History: no surgical history Lives: Spouse/ Significant Other Smoking Status: Never smoker Alcohol: None Drugs: None Review of Systems - Review of Systems General: Denies: Fever, Night Sweats, Fatigue HEENT: Denies: Vision Change Cardiovascular: Reports: Chest Discomfort with Exertion, Chest Heaviness. Denies: Chest Discomfort, Shortness of Breath, Orthopnea, PND, Peripheral Edema, Palpitations, Lightheadedness, Dizziness, Near Syncope, Syncope Respiratory: Denies: Cough, Sputum Production, Hemoptysis Gastrointestinal: Denies: Indigestion, Hematemesis, Hematochezia, Melena Genitourinary: Denies: Dysuria, Hematuria Muscoloskeletal: Denies: Myalgias Skin: Denies: Rash Neurological: Denies: Dizziness Psychiatric: Denies: Anxiety Endocrine: Denies: Heat Intolerance Hematologic/ Lymphatic: Denies: Anemia Subjectve: Pleasant gentleman in no apparent distress Objective: Vital Signs Temp Pulse Resp BP Pulse Ox 98.6 F 93 22 H 150/78 H 100 03/24/18 16:49 03/24/18 16:49 03/24/18 16:49 03/24/18 16:49 03/24/18 17:14 Oxygen Flow Rate (L/min) 2 Oxygen Delivery Method Nasal Cannula Weight: 208 lb 1.862 oz Body Mass Index (BMI) 30.7 General: Awake, Alert, Oriented x 3 HEENT: PERRL, EOMI, Sclera Non Icteric Neck: Supple, Good ROM, No Lymph Node Enlargement Lungs: Clear to auscultation Cardiovascular: Regular Rhythm, Normal S1, Normal S2, No Murmurs, No Rubs, No Gallops Vascular: No Carotid Bruits, Normal Femoral Pulses, Normal Radial Pulses, Normal Dorsalis Pedal Pulse, Normal Posterior Tibial Pulses Abdomen: Bowel Sounds Present, Soft, Non Tender, No HSM, No Organomegaly Extremities: No Cyanosis, No Clubbing, No edema Skin: No Rashes Lymphatic: No Lymph Node Enlargement Neurological: No Focal Motor or Sensory Deficit Psych/Mental Status: Appropriate Rhythm: EKG: ECHO: Stress Test: Cardiac Cath: PCI: CT Surgery: Holter monitor: EPS: PPM: CXR: Chest CT Scan: Assessment/Plan 1. Chest pain * Patient presents with new onset exertional chest discomfort. He does have a known history of coronary artery disease status post previous stenting as noted above. He has been otherwise physically active in the past and has not had any anginal spells. His EKG does not demonstrate any acute abnormalities. * Due to the recent onset of the discomfort I am concerned that this may be a manifestation of angina. As in the past he has had stress test which she says have been nondiagnostic he is hesitant to proceed with another stress test. I therefore discussed with him about the possibility of undergoing a cardiac catheterization. The risk benefits and alternatives have been explained to him he understands and agrees to proceed. * Above discussed with Dr. Villalobos who would perform the cardiac catheterization in a.m. * 2. Hyperlipidemia * Routine lipid profiles are obtained and at his last visit he was noted to be at goal. We will continue to check this every 6 months. * 3. Atrial fibrillation * He does have a history of paroxysmal atrial fibrillation and currently is maintaining sinus rhythm. No other recommendation regarding the above will be made. * Thank you for allowing me to participate in the care of your patient. Please don't hesitate to call if any issues arise 03/25/18 1036 <Electronically signed by Ken Bhatti MD> Date Ken Bhatti MD Cosigner Signature (if applicable): Date CC: Misael Woo III, MD Signed ACT ACTIVATED CLOTTING Collected: 03/25/2018 Status: F Source: NORM TIME 8:37 AM [facility] REPOSITORY TYPE CODE TESTS RESULT OUT OF RANGE REFERENCE UNITS LAB L9100.0100 74-137 sec High ACTk CLOT 191 TIME Performed By: #### L9100.0100 #### [facility] Point of Care [address] [place] [address] URINALYSIS, ROUTINE Collected: 03/25/2018 Status: F Source: NORM (DIPSTICK) 7:00 AM [facility] REPOSITORY Order Comment: How was Urine Obtained? CLEAN CATCH TYPE CODE TESTS RESULT OUT OF RANGE REFERENCE UNITS LAB L400.3000 Yellow COLOR Normal Yellow LAB L400.3050 Clear Normal CLARITY Clear LAB L400.3200 Normal mg/dl Normal GLUCOSE, UR Normal LAB L400.3300 Negative mg/dL Normal BILIRUBIN URINE Negative LAB L400.3400 Negative mg/dl Normal KETONE UR Negative LAB L400.3465 1.002-1.030 Normal SP.GR. DIPSTX 1.020 LAB L400.3550 5.0 - 8.0 pH UR Normal 5.0 LAB L400.3600 Negative mg/dl PROT Normal DIPSTX Negative LAB L400.3700 Normal mg/dl Normal UROBILI Normal LAB L400.3750 Negative Normal NITRITE UR Negative LAB L400.3780 Negative /ul Normal OCCULT BLOOD-UR Negative LAB L400.3800 Negative /ul LEUK Normal ESTERASE Negative Performed By: #### L400.2010 #### [facility] [address] [place], [place], [address] CBC W/DIFF, AUTOMATED Collected: 03/25/2018 Status: F Source: [facility] 2:20 AM [facility] REPOSITORY TYPE CODE TESTS RESULT OUT OF RANGE REFERENCE UNITS LAB L100.1000 4.4-11.0 K/mm3 Normal WBC 10.6 LAB L100.1200 4.6-6.2 M/mm3 Low RBC 4.22 LAB L100.1300 13.0-16.5 g/dl Normal HGB 13.4 LAB L100.1400 40-54 % Low HCT 38.0 LAB L100.1500 80-94 fL Normal MCV 90.0 LAB L100.1600 27.0-32.0 pg Normal MCH 31.8 LAB L100.1700 32-36 g/gl Normal MCHC 35.3 LAB L100.1810 11.6-14.6 % Normal RDW CV 12.3 LAB L100.1820 35.1-43.9 fl Normal RDW SD 39.9 LAB L100.1900 150-450 K/mm3 Normal PLT 215 LAB L100.2000 6.2-12.0 fl Normal MPV 9.9 LAB L100.2100 47-70 % Normal NEUT% 66.9 LAB L100.2200 19-41 % Normal LY% 19.3 LAB L100.2300 0-10 % High MONO% 10.8 LAB L100.2400 0-5 % Normal EO% 2.5 LAB L100.2500 0-1 % Normal BASO% 0.3 LAB L100.2550 0.0-0.9 % Normal IM GRAN % 0.200 Result Comment: IG% - Immature Granulocytes (promyelocytes, myelocytes and metamyelocytes) > 1% indicates that a LEFT SHIFT is Present. LAB L100.2620 2.0-7.7 X10 3/uL Normal Absolute Neut 7.1 LAB L100.2720 0.83-4.51 X10 3/ul Normal Absolute Lymph 2.05 Performed By: #### L100.0100 #### [facility] [address] [place], [place], [id number] PROTHROMBIN TIME W/INR Collected: 03/25/2018 Status: F Source: [facility] 2:20 AM [facility] REPOSITORY TYPE CODE TESTS RESULT OUT OF RANGE REFERENCE UNITS LAB L300.4150 11.7-14.9 SECONDS Normal PROTIME 14.5 LAB L300.4200 Normal INR 1.1 Performed By: #### L300.3900, L300.4310 #### [facility] [address] [place], [place], [id number] PARTIAL THROMBOPLAST Collected: 03/25/2018 Status: F Source: [facility] 2:20 AM [facility] REPOSITORY TYPE CODE TESTS RESULT OUT OF RANGE REFERENCE UNITS LAB L300.4310 24.1-36.2 Seconds Normal PTT 32.4 Performed By: #### L300.3900, L300.4310 #### [facility] [address] [place], [place], [id number] COMPREHENSIVE METABOLIC Collected: 03/25/2018 Status: F Source: [facility] 2:20 AM [facility] REPOSITORY TYPE CODE TESTS RESULT OUT OF RANGE REFERENCE UNITS LAB L501.0100 74-106 mg/dL Normal GLU 94 Result Comment: Please note revised GLUCOSE reference range effective 2017. LAB L501.1000 7-18 mg/dL High BUN 24 LAB L501.1100 0.70-1.30 mg/dL Normal CREAT,SERUM 0.98 Result Comment: The validity of the calculated GFR AND GFRAA in patients over 70 years has not been determined. Clinical correlation is essential. LAB L501.1110 >60 mL/min Normal EST GFR 82 Result Comment: Non- GFR Calc LAB L501.1115 >60 mL/min Normal EST GFR - AA 99 Result Comment: GFR Calc LAB L501.1255 ml/min Normal Estimated CRCL 75.15 LAB L501.1300 10-20 RATIO High BUN/CRE 24.5 LAB L501.1500 6.4-8. g/dL Normal 2 T PROT 6.8 LAB L501.1800 3.2-5. g/dL Normal 0 ALB 3.7 LAB L501.1950 2.2-4. g/dL Normal 2 GLOB 3.1 LAB L501.2000 0.9-2. RATIO Normal 4 A/G 1.2 LAB L501.2200 8.5-10 mg/dL Low .1 CA 8.4 LAB L501.4100 15-37 U/L Normal AST 20 LAB L501.4305 45-117 U/L Normal ALK P 85 LAB L501.4405 16-61 U/L Normal ALT 29 LAB L501.4600 0.20-1 mg/dL Normal .00 T BILI 0.80 LAB L501.5300 136-14 mmol/L Normal 5 NA 140 LAB L501.5600 3.5-5. mmol/L Normal 1 K 3.7 LAB L501.5900 98-107 mmol/L Normal CL 107 LAB L501.6100 21.0-3 mmol/L Normal 2.0 CO2 28.0 LAB L501.6200 5-15 Normal GAP 5 Performed By: #### L500.4050, L500.4100 #### [facility] [address] [place], [place], [id number] LIPID PROFILE Collected: 03/25/2018 Status: F Source: NORM 2:20 AM [facility] REPOSITORY TYPE CODE TESTS RESULT OUT OF RANGE REFERENCE UNITS LAB L501.4900 200 mg/dL Normal CHOL 126 Result Comment: <200 mg/dL Desirable 200-240 mg/dL Borderline >240 mg/dL High Risk LAB L501.5000 mg/dL Normal TRIG 92 Result Comment: The drugs N-Acetylcysteine and Metamizole may falsely depress this assay. Serum Triglycerides Reference Interval Normal <150 mg/dL Borderline high 150 - 199 mg/dL High 200 - 499 mg/dL Very High > or = 500 mg/dL LAB L501.6400 mg/dL Normal HDL 49 Result Comment: The drugs N-Acetylcysteine and Metamizole may falsely depress this assay. Reference Range HDL <40 mg/dL Low HDL Cholesterol HDL >or= 60 mg/dL High HDL Cholesterol LAB L501.6500 0-130 mg/dL Normal LDL 59 LAB L501.6600 5-40 mg/dL Normal VLDL 18 Performed By: #### L500.4050, L500.4100 #### [facility] [address] [place], [place], [address] TROPONIN-I Collected: 03/25/2018 Status: F Source: [facility] 2:20 AM [facility] REPOSITORY TYPE CODE TESTS RESULT OUT OF RANGE REFERENCE UNITS LAB L501.4010 <0.045 ng/mL High 0.214 TROPONIN-I Result Comment: TROPONIN-I EXPECTED VALUES <0.045 Negative 0.045 - 0.590 Consistent with Cardiac Damage > OR = 0.600 Critical Value Not every elevated troponin is indicative of PA. These values should be used with clinical judgement in examining the patient's clinical picture for diagnosis. To establish a diagnosis of PA versus myocardial injury, there must be a demonstrated rise and/or fall in the troponin values, in addition to ischemic symptoms, EKG changes, new regional wall motion abnormality, and/or angiographical evidence. PLEASE NOTE: REFERENCE RANGES EDITED 17 Performed By: #### L501.4010 #### [facility] [address] [place], [place], [address] TROPONIN-I Collected: 03/24/2018 Status: F Source: NORM 11:14 PM [facility] REPOSITORY Order Comment: 'TROP' Serial specimen #1, #2 or #3: 2 TYPE CODE TESTS RESULT OUT OF RANGE REFERENCE UNITS LAB L501.4010 <0.045 ng/mL High 0.165 TROPONIN-I Result Comment: TROPONIN-I EXPECTED VALUES <0.045 Negative 0.045 - 0.590 Consistent with Cardiac Damage > OR = 0.600 Critical Value Not every elevated troponin is indicative of PA. These values should be used with clinical judgement in examining the patient's clinical picture for diagnosis. To establish a diagnosis of PA versus myocardial injury, there must be a demonstrated rise and/or fall in the troponin values, in addition to ischemic symptoms, EKG changes, new regional wall motion abnormality, and/or angiographical evidence. PLEASE NOTE: REFERENCE RANGES EDITED 17 Performed By: #### L501.4010 #### [facility] [address] [place], [address] EMERGENCY DEPARTMENT Observed: 03/24/2018 Status: F Source: [facility] SUMMARY 11:00 PM [facility] REPOSITORY [facility] Medical Records Department [address] [place] [address] Emergency Department Summary 03/24/18 1714 MR#: [id number] Acct: [id number] Name: JESSI LOPEZ Rep #: [id number] : 1950 67 From: Kip Chapplel MD PCP: Misael Woo III, MD Status: ADM SONY - ER Visit Summary Date of Service: 03/24/18 Chief Complaint: [] Chest pain today with exertion History of Present Illness: The patient is a 67 M [] to 3 cardiac stents his general health condition is very stable he was exerting himself today with some activities he began to have chest discomfort he stopped activities took 1 baby aspirin symptoms resolved he is pain-free and he came in for evaluation he is seen by Dr. Villalobos he has never had an PA before, he said no fever no cough history of DVT PE or PA bowel bladder habits have been normal Physical Examination: [] 150/78 100% afebrile pain-free General, no distress resting comfortably HEENT is generally unremarkable The neck is supple no adenopathy Cardiovascular, regular rate and rhythm Lungs, clear bilateral Abdomen, soft nontender Extremities, no clubbing cyanosis or edema Neurologic, awake alert answering questions appropriately moving all 4 extremities eKG shows a sinus rhythm nothing acute given his complaints and all the above screening labs are obtained His screening labs are all generally unremarkable see those reports, we spoke with Dr. Bhatti recommends admission spoke with hospitalist service they will arrange for admission for further management patient remains pain-free and agrees to admission Test Results: [] Emergency Department Course and Treatment: [] Treatment Plan: [] Disposition: [] Admit stable Impression: [] Chest pain, history of cardiac stents This note was generated with [employer] dictation software. It may contain incorrect words, spelling, and punctuation that were not noted in review of the chart prior to signing ED Disposition - Plan for ED Patient: Chief Complaint: Chest Pain Referrals: Misael Woo III, MD [Primary Care Provider] - What to do if you have Problems For any increased pain, shortness of breath, bleeding, nausea or vomiting, chest pain, or any unexpected problems, contact your Primary Care Provider. Call [facility] ([phone]) or report to the closest Emergency Room. Call 911 if necessary. 03/24/18 2300 <Electronically signed by Kip Chappell MD> Date Kip Chappell MD Cosigner Signature (If Indicated): Date CC: Misael Woo III, MD HISTORY AND PHYSICAL Observed: 03/24/2018 Status: F Source: [facility] EXAM 7:50 PM [facility] REPOSITORY [facility] Medical Records Department [address] [place] [id number] History and Physical 03/24/18 2998 MR#: [id number] Acct: [id number] Name: RONNYJESSI Rep #: [id number] : 1950 67 From: Concha Jennings DO PCP: Misael Woo III, MD Status: ADM SONY Y Location: [place] [address] Problem List (1) Unstable angina Status: Acute (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 transplanted heart: [place] heart Qualified Code(s): I25.10 - Atherosclerotic heart disease of [place] coronary artery without angina pectoris (5) Atrial fibrillation Status: Chronic (6) History of percutaneous transluminal coronary angioplasty Status: Chronic Comment: 03/21/09, PTCA/stent (JUAN) to mid LAD (3.5 X 13mm Cypher) AND PCI of mid LCx @ [facility]; PCI JUAN mid RCA (Promus Premier 3.0 X 32mm) 10/08/[address] Villalobos (7) Family history of premature coronary heart disease Status: Chronic Comment: Male <55 (8) Parkinson disease Status: Chronic (9) BPH (benign prostatic hyperplasia) Status: Chronic History of Present Illness Date of Admission: 03/24/18 Chief Complaint: Chest pain The patient is a 67 year old M with a past medical history of hypertension, coronary artery disease, PTCA to the LAD and circumflex in 2008 and RCA in 2013, hyperlipidemia and paroxysmal atrial fibrillation who presented to the emergency department at [facility] on 03/24/2018 complaining of chest pain that started while he was exerting himself walking up and down a steep hill to drag garbage from a ravine. He sat down for a few minutes and the pain did not ease up so he went home. He states he was diaphoretic but he had been working hard. He denied any shortness of breath or radiation of the pain. He also denied nausea. He arrived home he still had discomfort in his left chest and decided to come to the emergency room. When he arrived in the emergency department he was almost pain- free. Vital signs at arrival to the emergency room were temperature 98.6, pulse rate 93, blood pressure 150/78, respiratory rate 22 and he was 97% saturated on room air. White blood cell count was mildly elevated at 11.2 with 81% neutrophils. Hemoglobin and platelets were within normal limits. BMP was unremarkable with the exception of an increased BUN at 26 with a creatinine of 1.28. Troponin was less than 0.015. Chest x-ray showed no infiltrates, pleural effusions or pulmonary vascular congestion. EKG showed normal sinus rhythm with no suspicious ischemic changes. Patient was very concerned about the chest pain because he has had negative stress tests in the past and he has documented coronary disease. He was seen in consultation by Dr. Bhatti who feels he needs admitted for cardiac catheterization in the morning given false negative stress tests in the past. 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) Z79.899 Hyperlipidemia (Chronic) E78.5 Atherosclerotic heart disease of [place] coronary artery without angina pectoris (Chronic) I25.10 Atrial fibrillation (Chronic) I48.91 Family history of premature coronary heart disease (Chronic) Z82.49 Male <55 Allergies oxycodone HCl [From Percocet] Allergy (Intermediate, Verified 03/24/18 16:49) Itching duloxetine HCl [From Cymbalta] Adverse Reaction (Intermediate, Verified 03/24/18 16:49) Mood Change venlafaxine HCl [From Effexor] Adverse Reaction (Intermediate, Verified 03/24/18 16:49) Mood change aricept Adverse Reaction (Intermediate, Uncoded 03/24/18 16:49) GI upset Home Medications: Ambulatory Orders Medication Instructions Recorded Carbidopa/Levodopa [Sinemet Cr 1 ea PO TID 10/01/13 25-100 Tablet] Cyanocobalamin [Vitamin B12] 500 mcg PO DAILY@0800 10/01/13 Surgical History: Surgical History (Last Reviewed 03/24/18 @ 19:42 by Concha Jennings DO) History of percutaneous transluminal coronary angioplasty (Chronic) Z98.61 03/21/09, PTCA/stent (JUAN) to mid LAD (3.5 X 13mm Cypher) AND PCI of mid LCx @ [facility]; PCI JUAN mid RCA (Promus Premier 3.0 X 32mm) 10/08/[address] Villalobos Surgical History: no surgical history Lives: Spouse/ Significant Other Smoking Status: Never smoker Alcohol: None Drugs: None - *Family History Paternal Family History: Family History (Last Reviewed 03/24/18 @ 19:42 by Concha Jennings DO) Father Myocardial infarction Heart disease Mother Cancer Brother Myocardial infarction Sister Cancer Review of Systems Constitutional: Denies: Chills, Fever, Weight Change Eyes: Denies: Blurred vision, Pain HEENT: Denies: Head Aches, Sinus Congestion, Sinus Drainage Cardiovascular: Reports: Chest Pain - left chest, without radiation.. Denies: Edema, Orthopnea, Palpitations, Syncope Respiratory: Denies: Cough, Shortness of breath at rest, Sputum production Gastrointestinal: Denies: Abdominal Pain, Nausea, Vomiting Genitourinary: Denies: Dysuria Musculoskeletal: Denies: Arm Pain, Joint Pain, Joint Tenderness Skin: Denies: Rash, Wounds Neurological: Denies: Numbness, Tingling, Focal weakness Psychiatric: Denies: Anxiety, Depression, Homicidal Ideations, Suicidal Ideations Hematologic/ Lymphatic: Denies: Easy Bruising, Easy Bleeding, Hx of blood clot VTE Information - Inpt Only VTE Present on Admission: No VTE Mechan Device Prophylaxis: SCD's, Knee High HIEU Hose VTE Pharm Prophylaxis ordered?: Yes Patient Problems: Active and Suspected Problems (Last Updated 03/24/18 @ 19:41 by Concha Jennings DO) Unstable angina (Acute) Cervical vertebral fusion (Acute) - Physical Exam General: Alert, Oriented x3, Cooperative, No apparent distress, Well developed, Well nourished HEENT: Atraumatic, PERRLA, EOMI, Normocephalic Oral: Moist Mucosa Neck: Supple, No JVD, Negative Carotid Bruits, No Nuchal Rigidity, Trachea Midline, - - Carotids have brisk upstroke and good pulse volume bilaterally Lungs: Clear to auscultation, Normal air movement, No rhonchi, No wheeze, No rales Cardiovascular: Regular rate, Regular Rhythm, Normal S1, Normal S2, No murmurs, No Ectopic Activity, No rub noted, No Gallop Abdomen: Bowel Sounds Present, Soft, Non Tender, Non-Distended, - - No abdominal bruits Extremities: No clubbing, No cyanosis, No edema, Capillary Refill Less than 3 Seconds, No Calf Tenderness, Peripheral Pulses Normal Skin: No rashes, No breakdown Musculoskeletal: No Tenderness to Palpation of Joints or Extremities, No Muscle Wasting Neurological: Cranial nerves II-XII grossly intact, Neuro grossly intact Psych/Mental Status: Normal Affect, Appropriate Vital Signs Temp Pulse Resp BP Pulse Ox 98.6 F 61 17 140/69 H 99 03/24/18 16:49 03/24/18 18:15 03/24/18 18:15 03/24/18 18:15 03/24/18 18:15 Oxygen Flow Rate (L/min) 2 Oxygen Delivery Method Nasal Cannula Weight: 208 lb 1.862 oz Body Mass Index (BMI) 30.7 Laboratory Tests Past 24 Hrs WBC 11.2 H RBC 4.50 L Hgb 14.0 Hct 40.3 MCV 89.6 MCH 31.1 MCHC 34.7 RDW 12.3 RDW Differential 40.0 Assessment/Plan All Active Problems (Last Updated 03/24/18 @ 19:41 by Concha Jennings DO) Unstable angina (Acute) Cervical vertebral fusion (Acute) Impressions 1. Unstable angina 2. History of coronary artery disease with PTCA to LAD, circumflex artery and RCA in the past. Has had false negative stress test in the past. 3. Parkinson's disease 4. Hyperlipidemia 5. Paroxysmal atrial fibrillation-not on anticoagulation 6. overweight Admit to a monitored bed on PCU ASA 81 mg PO daily SL NTG 0.4 mg PRN chest pain Serial Cardiac Enzymes Stat EKG PRN CP Chest XRAY Cardiac catheterization in the a.m. DVT prophylaxis with 40 mg of subcutaneous Lovenox now followed by SCDs and HIEU ramírez A loading dose of Plavix was given by Dr. Bhatti and he will be started on Plavix 75 mg daily. MARIALUISA score is 4 Code Visit OBSV E AND M: [id number] Initial observation care L3 03/24/18 1950 <Electronically signed by Concha Jennings DO> Date M Ashwini Jennings Fransisco Signature: Date (if applicable) CC: Daysi Jennings; Heriberto Villalobos MD; Misael Woo III, MD Signed CHEST 1 VIEW Observed: 03/24/2018 Status: F Source: NORM (PORTABLE) 5:09 PM [facility] REPOSITORY [facility] Imaging Services [address] [place], [place] [address] [address] Chest 1 View (Portable) MR#: [id number] Acct: [id number] Name: JESSI LOPEZ Rep #: [id number] : 1950 M 67 From: Carlos Sheehan MD PCP: Misael Woo III, MD Status: REG ER Study: Chest 1 View (Portable) Date of Exam: 03/24/18 Exam# [id number] Ordering Dr: Kip Chappell MD STUDY: X-RAY CHEST REASON FOR EXAM: Male, 67 years old. Chest pain TECHNIQUE: AP portable COMPARISON: October 01, 2013 FINDINGS: The lungs are clear and expanded. There is no demonstrated pleural abnormality. Normal size heart. Normal mediastinum and della. Normal visualized pulmonary arteries. Normal visualized aortic arch and descending thoracic aorta. Normal visualized thoracic spine. Normal visualized ribs, clavicles, and shoulders. There are postsurgical changes of the cervical spine. There is no demonstrated abnormality of the visualized soft tissue structures of the upper abdomen. No significant change since prior study RAD/Chest 1 View (Portable) IMPRESSION: No acute cardiopulmonary pathology Electronically Signed: Carlos Sheehan MD at 17:58 EST , Service support , CC: MD Saniya Chappell; Misael Woo III, MD Ripening Room Attendant: Signed CBC W/DIFF, AUTOMATED Collected: 03/24/2018 Status: F Source: [place] 4:55 PM [facility] REPOSITORY TYPE CODE TESTS RESULT OUT OF RANGE REFERENCE UNITS LAB L100.1000 4.4-11.0 K/mm3 High WBC 11.2 LAB L100.1200 4.6-6.2 M/mm3 Low RBC 4.50 LAB L100.1300 13.0-16.5 g/dl Normal HGB 14.0 LAB L100.1400 40-54 % Normal HCT 40.3 LAB L100.1500 80-94 fL Normal MCV 89.6 LAB L100.1600 27.0-32.0 pg Normal MCH 31.1 LAB L100.1700 32-36 g/gl Normal MCHC 34.7 LAB L100.1810 11.6-14.6 % Normal RDW CV 12.3 LAB L100.1820 35.1-43.9 fl Normal RDW SD 40.0 LAB L100.1900 150-450 K/mm3 Normal PLT 220 LAB L100.2000 6.2-12.0 fl Normal MPV 10.2 LAB L100.2100 47-70 % High NEUT% 81.4 LAB L100.2200 19-41 % Low LY% 8.7 LAB L100.2300 0-10 % Normal MONO% 8.8 LAB L100.2400 0-5 % Normal EO% 0.6 LAB L100.2500 0-1 % Normal BASO% 0.2 LAB L100.2550 0.0-0.9 % Normal IM GRAN % 0.300 Result Comment: IG% - Immature Granulocytes (promyelocytes, myelocytes and metamyelocytes) > 1% indicates that a LEFT SHIFT is Present. LAB L100.2620 2.0-7.7 X10 3/uL High Absolute Neut 9.1 LAB L100.2720 0.83-4.51 X10 3/ul Normal Absolute Lymph 0.97 Performed By: #### L100.0100 #### [facility] [address] [place], [place], [address] BASIC METABOLIC Collected: 03/24/2018 Status: F Source: NORM PROFILE (BMP) 4:55 PM [facility] REPOSITORY TYPE CODE TESTS RESULT OUT OF RANGE REFERENCE UNITS LAB L501.0100 74-106 mg/dL Normal GLU 90 Result Comment: Please note revised GLUCOSE reference range effective 2017. LAB L501.1000 7-18 mg/dL High BUN 26 LAB L501.1100 0.70-1.30 mg/dL Normal CREAT,SERUM 1.28 Result Comment: The validity of the calculated GFR AND GFRAA in patients over 70 years has not been determined. Clinical correlation is essential. LAB L501.1110 >60 mL/min Normal EST GFR 60 Result Comment: Non- GFR Calc LAB L501.1115 >60 mL/min Normal EST GFR - AA 72 Result Comment: GFR Calc LAB L501.1255 ml/min Normal Estimated CRCL 57.54 LAB L501.1300 10-20 RATIO High BUN/CRE 20.3 LAB L501.2200 8.5-10 mg/dL Normal .1 CA 9.0 LAB L501.5300 136-14 mmol/L Normal 5 NA 141 LAB L501.5600 3.5-5. mmol/L Normal 1 K 3.6 LAB L501.5900 98-107 mmol/L Normal CL 106 LAB L501.6100 21.0-3 mmol/L Normal 2.0 CO2 24.0 LAB L501.6200 5-15 Normal GAP 11 Performed By: #### L500.2500, L501.4010 #### [facility] [address] [place], [address] TROPONIN-I Collected: 03/24/2018 Status: F Source: NORM 4:55 PM [facility] REPOSITORY TYPE CODE TESTS RESULT OUT OF RANGE REFERENCE UNITS LAB L501.4010 <0.045 ng/mL Normal < 0.015 TROPONIN-I Result Comment: TROPONIN-I EXPECTED VALUES <0.045 Negative 0.045 - 0.590 Consistent with Cardiac Damage > OR = 0.600 Critical Value Not every elevated troponin is indicative of PA. These values should be used with clinical judgement in examining the patient's clinical picture for diagnosis. To establish a diagnosis of PA versus myocardial injury, there must be a demonstrated rise and/or fall in the troponin values, in addition to ischemic symptoms, EKG changes, new regional wall motion abnormality, and/or angiographical evidence. PLEASE NOTE: REFERENCE RANGES EDITED 17 Performed By: #### L500.2500, L501.4010 #### [facility] [address] [place], [address] MAGNESIUM Collected: 03/24/2018 Status: F Source: [place] 4:55 PM [facility] REPOSITORY TYPE CODE TESTS RESULT OUT OF RANGE REFERENCE UNITS LAB L501.5200 1.6-2.6 mg/dL Low MG 1.4 Performed By: #### L501.5200 #### [facility] [address] [place], [address] PROGRESS Observed: 02/11/2018 Status: COMPLETED Source: [place] 11:28 AM [facility] [place] REPOSITORY HNO ID: [id number] Author: Misael Woo III Service: (none) Author Type: Physician Type: Progress Notes Filed: 02/11/2018 1:33 PM Note Text: SUBJECTIVE: Chief Complaint: Jessi Lopez is a 67 year old male who presents for comprehensive problem evaluation. New concerns today include 1. throbbing ORELLANA last night that awakened him. Took Aleve and gabapentin 3 doses last night with benefit and was able to sleep, but ORELLANA has returned this AM. Some photophobia but no nausea. Hx of migraine many yrs ago. No head injury. 2. L knee pain, s/p football injury and removal of cartilage. Recent onset of episodic intense pain while in bed, gino when cold with air conditioning.. UNable to fully extend L knee. 3. arthritis in hands with aching when in bed; does not affect him during the day. 4. ED-viagra works well. 5. depression: doing well with prozac. Previous attempt to d/c the med led to recurrent depression Exercises regularly Minimal exercise associated with work or ADL's Prostate cancer screening up to date Yes PSA was 1.2 Colon cancer screening is up to date Yes Last colonoscopy was done 05/2015 Cholesterol screening up to date Yes PAST MEDICAL HISTORY Diagnosis Date - Acute gastritis without mention of hemorrhage - Acute left lumbar radiculopathy 09/03/2012 - Anxiety state, unspecified - Arthritis of both knees 10/01/2013 - Blood stool - Cervical disc disorder with radiculopathy 04/25/2010 - Coronary artery disease - CTS (carpal tunnel syndrome) 10/01/2013 - Degenerative cervical disc 03/27/2010 - Depression 03/27/2010 - Diarrhea - Diarrhea - Diarrhea - Esophagitis, unspecified - Esophagitis, unspecified - Family history of malignant neoplasm of gastrointestinal tract - Hyperlipidemia LDL goal <100 04/26/2016 - Major depressive disorder, recurrent episode, unspecified - Memory loss 01/28/2010 - Nausea alone - Obsessive-compulsive disorders - Parkinson's disease (HCC) 07/26/2010 - PEPTIC ULCER NOS 03/23/2006 - Tremor 05/12/2010 - Ulnar neuropathy 05/12/2010 - Unspecified hemorrhoids without mention of complication internal PAST SURGICAL HISTORY Procedure Laterality Date - APPENDECTOMY - ARTHROTOMY,OPEN REPAIR MENISCUS Open knee reconstruction LEFT - CARPAL TUNNEL Right 2000 RIGHT--[place] - COLONOSCOP W/ OR W/O [facility] SPEC 10/2004 Colonoscopy - COLONOSCOP W/ OR W/O [facility]SH SPEC 06/15/10 - COLONOSCOP W/ OR W/O BRS SPEC 06/03/15 Colonoscopy - EGD W/O [facility] SPECIMEN W/BX 06/17/06 - EGD W/O BRS SPECIMEN W/BX 06/15/10 - EGD W/O OR W/BRUSH/WASH 06/03/15 EGD - LEFT HEART CATH 10/07/2013 [facility] - with stent placement - PAST SURGICAL HISTORY OF 2004 cervical spinal nerve entrapment/release - PAST SURGICAL HISTORY OF 2000 RIGHT ACHILLES REPAIR - PAST SURGICAL HISTORY OF kidney stone surgery - REM LESION TRUNK,ARM,LEG 0.6 -1.0CM 08/19/10 Exc. eva cysts x 3 - REMOVE TONSILS/ADENOIDS,<12 Y/O - [facility] N/CARPAL TUNNEL SURG Left 2-- - [facility] N/CARPAL TUNNEL SURG - SPINE FUSION,ANTER,3 SGMTS - TRANSCATH STENT ADDN VESSEL,PERCUT 03/21/09 Transcath stent addn vessel percut - TRANSCATH STENT INIT VESSEL,PERCUT 03/21/09 Transcath stent init vessel percut FAMILY HISTORY Problem Relation Age of Onset - Heart Mother - Colon Cancer Mother - Heart Father - Heart Brother PA age 56 - Prostate Cancer Brother 67 radiation seeds - other (lung cancer) Sister 65 non-smoker - None Sister - other (myocardial infarction) Brother Social History Marital status: Spouse name: Berenice Years of education: Number of children: 3 Occupational History 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, 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 Social History Main Topics Smoking status: Never Smoker Smokeless tobacco: Never Used Alcohol use: Yes Comment: rarely Drug use: No Immunization History Administered Date(s) Administered DTaP (Age<7) 06/28/2005 DTaP, unspecified formulation 06/28/2005 Influenza Vaccine, Split-Non Spec 03/27/2010 Tdap (Age 7+) 12/21/2017 Zostavax 01/15/2013 ACTIVE PROBLEM LIST Elevated Prostate Specific Antigen (Psa) Sleep Apnea Benign Prostatic Hyperplasia With Urinary Obstruction Cad (Coronary Artery Disease) Postsurgical Percutaneous Transluminal Coronary Angioplasty Status Tremor Family History of Malignant Neoplasm of Gastrointestinal Tract Family History of Prostate Cancer Arthritis of Both Knees S/P Coronary Artery Stent Placement Anxiety Hyperlipidemia Ldl Goal <100 Osteoarthritis of Both Hands Trigger Index Finger of Right Hand Depression REVIEW OF SYSTEMS General: Denies fever, chills, night sweats, or changes in weight. Dermatologic: Denies any new skin conditions, rashes or changing moles. Eyes: ENT: Respiratory: Denies any cough, dyspnea, or wheezing. Cardiovascular: Denies any chest pain with exertion or at rest, palpitations, syncope, or edema. Gastrointestinal: Denies any nausea, vomiting, abdominal pain, heartburn, changes in bowel habit, Denies any rectal bleeding. Genitourinary: Denies Denies problems with urinary stream., Denies dysuria, frequency, urgency, incontinence, erectile dysfunction, hematuria and nocturia. Musculoskeletal: Denies any joint swelling, crepitus, joint pain, or loss of range of motion., Denies back pain. Neurologic: Denies any headaches, tremors, dizziness, vertigo, memory loss, confusion., Denies weakness, numbness or tingling. Psychiatric: Denies any sleeping problems, history of abuse, marital discord., Denies any anxiety or depression. Hematologic/Lymphatic/Immunologic: Denies anemia, bruising, bleeding abnormalities. Endocrine: Denies any heat or cold intolerance, polyuria or polydipsia. OBJECTIVE: PHYSICAL EXAMINATION: BP 138/79 Pulse 65 Resp (!) 62 Ht 172.7 cm (5' 8) Wt 92.1 kg (203 lb) BMI 30.87 kg/m? GENERAL APPEARANCE Well appearing, alert, in no acute distress, well-hydrated, well nourished. SKIN: 10 x 14 mm red macule L calf 5 mm x 5 mm red macule R forearm HEAD: No significant findings. Eyes?pupils equal and equally react to light. Fundi are normal Ears TMs and external ear canals are normal Pharynx throat and gums are normal. NECK: Supple, no lymphadenopathy, normal thyroid, no carotid bruits and no JVD BACK: Back symmetric, Normal curvature, No CVAT. LUNGS: normal pulmonary exam and clear to auscultation and percussion HEART: Normal PMI, Regular rate and rhythm, Normal heart sounds, S1 and S2 and No murmurs. BREASTS: ABDOMEN: Soft, Non-tender, No palpable masses and No hepatosplenomegaly. EXTREMTIES: extremities normal, no deformities, no skin discoloration, no edema, normal pulses bilaterally. NEURO: Awake, alert and oriented x 3, Normal gait, No involuntary motions., muscle tone normal, muscle strength normal. No tremor noted GENITALIA: Penis normal, no urethral discharge, scrotum normal to palpation, no hernias RECTAL: Anus normal, no anorectal masses, Prostate normal size, consistency, no nodules, and no tenderness Lab Results for JESSI LOPEZ ( ) as of 02/11/2018 11:52 Ref. Range 12/21/2017 00:00 Albumin Latest Ref Range: 3.2 - 4.6 gm/dL 3.7 AST Latest Ref Range: 8 - 37 U/L 21 Triglyceride Latest Ref Range: 149 mg/dL 79 LDL Cholesterol Unknown 58 Alk Phos Total Latest Ref Range: 45 - 117 U/L 102 ALT (SGPT) Latest Ref Range: 12 - 78 U/L 21 Cholesterol, Total Latest Ref Range: 0 - 200 MG/DL 124 HDC-L Latest Ref Range: 41 mg/dL 50 (A) LDL Chol, calculated Latest Ref Range: 130 MG/DL 58 Total Protein Latest Ref Range: 6.4 - 8.2 gm/dL 6.9 ASSESSMENT: GERD--well controlled suspicious skin lesions Parkinson's dis--stable hyperlipidemia--at goal depression--well controlled ASHD--stable PLAN: healthy diet and regular exercise as able consider exercycle same medications dermatology referral prevnar 13 vaccination given Misael Woo III MD CNOV Observed: 02/11/2018 Status: COMPLETED Source: [place] 11:00 AM [facility] REPOSITORY Office Visit (FAMPWS) JESSI LOPEZ ([id number]) 1950 M Date Time Provider Department 02/11/18 11:00 AM MISAEL WOO III During your visit today, we recorded the following information about you: Pulse Respiration Blood pressure Weight 65/minute 62/minute 138/79 92.1 kg Height 1.727 m Misael Woo III MD 02/11/2018 1:33 PM Signed SUBJECTIVE: Chief Complaint: Jessi Lopez is a 67 year old male who presents for comprehensive problem evaluation. New concerns today include 1. throbbing ORELLANA last night that awakened him. Took Aleve and gabapentin 3 doses last night with benefit and was able to sleep, but ORELLANA has returned this AM. Some photophobia but no nausea. Hx of migraine many yrs ago. No head injury. 2. L knee pain, s/p football injury and removal of cartilage. Recent onset of episodic intense pain while in bed, gino when cold with air conditioning.. UNable to fully extend L knee. 3. arthritis in hands with aching when in bed; does not affect him during the day. 4. ED-viagra works well. 5. depression: doing well with prozac. Previous attempt to d/c the med led to recurrent depression Exercises regularly Minimal exercise associated with work or ADL's Prostate cancer screening up to date Yes PSA was 1.2 Colon cancer screening is up to date Yes Last colonoscopy was done 05/2015 Cholesterol screening up to date Yes PAST MEDICAL HISTORY Diagnosis Date - Acute gastritis without mention of hemorrhage - Acute left lumbar radiculopathy 09/03/2012 - Anxiety state, unspecified - Arthritis of both knees 10/01/2013 - Blood stool - Cervical disc disorder with radiculopathy 04/25/2010 - Coronary artery disease - CTS (carpal tunnel syndrome) 10/01/2013 - Degenerative cervical disc 03/27/2010 - Depression 03/27/2010 - Diarrhea - Diarrhea - Diarrhea - Esophagitis, unspecified - Esophagitis, unspecified - Family history of malignant neoplasm of gastrointestinal tract - Hyperlipidemia LDL goal <100 04/26/2016 - Major depressive disorder, recurrent episode, unspecified - Memory loss 01/28/2010 - Nausea alone - Obsessive-compulsive disorders - Parkinson's disease (HCC) 07/26/2010 - PEPTIC ULCER NOS 03/23/2006 - Tremor 05/12/2010 - Ulnar neuropathy 05/12/2010 - Unspecified hemorrhoids without mention of complication internal PAST SURGICAL HISTORY Procedure Laterality Date - APPENDECTOMY - ARTHROTOMY,OPEN REPAIR MENISCUS Open knee reconstruction LEFT - CARPAL TUNNEL Right 2000 RIGHT--[place] - COLONOSCOP W/ OR W/O BRS SPEC 10/2004 Colonoscopy - COLONOSCOP W/ OR W/O [facility] SPEC 06/15/10 - COLONOSCOP W/ OR W/O [facility] SPEC 06/03/15 Colonoscopy - EGD W/O [facility] SPECIMEN W/BX 06/17/06 - EGD W/O BRS SPECIMEN W/BX 06/15/10 - EGD W/O OR W/BRUSH/WASH 06/03/15 EGD - LEFT HEART CATH 10/07/2013 [facility] - with stent placement - PAST SURGICAL HISTORY OF 2004 cervical spinal nerve entrapment/release - PAST SURGICAL HISTORY OF 2000 RIGHT ACHILLES REPAIR - PAST SURGICAL HISTORY OF kidney stone surgery - REM LESION TRUNK,ARM,LEG 0.6 -1.0CM 08/19/10 Exc. eva cysts x 3 - REMOVE TONSILS/ADENOIDS,<12 Y/O - [facility] N/CARPAL TUNNEL SURG Left -- - [facility] N/CARPAL TUNNEL SURG - SPINE FUSION,ANTER,3 SGMTS - TRANSCATH STENT ADDN VESSEL,PERCUT 03/21/09 Transcath stent addn vessel percut - TRANSCATH STENT INIT VESSEL,PERCUT 03/21/09 Transcath stent init vessel percut FAMILY HISTORY Problem Relation Age of Onset - Heart Mother - Colon Cancer Mother - Heart Father - Heart Brother PA age 56 - Prostate Cancer Brother 67 radiation seeds - other (lung cancer) Sister 65 non-smoker - None Sister - other (myocardial infarction) Brother Social History Marital status: Spouse name: Berenice Years of education: Number of children: 3 Occupational History 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, 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 Social History Main Topics Smoking status: Never Smoker Smokeless tobacco: Never Used Alcohol use: Yes Comment: rarely Drug use: No Immunization History Administered Date(s) Administered DTaP (Age<7) 06/28/2005 DTaP, unspecified formulation 06/28/2005 Influenza Vaccine, Split-Non Spec 03/27/2010 Tdap (Age 7+) 12/21/2017 Zostavax 01/15/2013 ACTIVE PROBLEM LIST Elevated Prostate Specific Antigen (Psa) Sleep Apnea Benign Prostatic Hyperplasia With Urinary Obstruction Cad (Coronary Artery Disease) Postsurgical Percutaneous Transluminal Coronary Angioplasty Status Tremor Family History of Malignant Neoplasm of Gastrointestinal Tract Family History of Prostate Cancer Arthritis of Both Knees S/P Coronary Artery Stent Placement Anxiety Hyperlipidemia Ldl Goal <100 Osteoarthritis of Both Hands Trigger Index Finger of Right Hand Depression REVIEW OF SYSTEMS General: Denies fever, chills, night sweats, or changes in weight. Dermatologic: Denies any new skin conditions, rashes or changing moles. Eyes: ENT: Respiratory: Denies any cough, dyspnea, or wheezing. Cardiovascular: Denies any chest pain with exertion or at rest, palpitations, syncope, or edema. Gastrointestinal: Denies any nausea, vomiting, abdominal pain, heartburn, changes in bowel habit, Denies any rectal bleeding. Genitourinary: Denies Denies problems with urinary stream., Denies dysuria, frequency, urgency, incontinence, erectile dysfunction, hematuria and nocturia. Musculoskeletal: Denies any joint swelling, crepitus, joint pain, or loss of range of motion., Denies back pain. Neurologic: Denies any headaches, tremors, dizziness, vertigo, memory loss, confusion., Denies weakness, numbness or tingling. Psychiatric: Denies any sleeping problems, history of abuse, marital discord., Denies any anxiety or depression. Hematologic/Lymphatic/Immunologic: Denies anemia, bruising, bleeding abnormalities. Endocrine: Denies any heat or cold intolerance, polyuria or polydipsia. OBJECTIVE: PHYSICAL EXAMINATION: BP 138/79 Pulse 65 Resp (!) 62 Ht 172.7 cm (5' 8) Wt 92.1 kg (203 lb) BMI 30.87 kg/m? GENERAL APPEARANCE Well appearing, alert, in no acute distress, well-hydrated, well nourished. SKIN: 10 x 14 mm red macule L calf 5 mm x 5 mm red macule R forearm HEAD: No significant findings. Eyes?pupils equal and equally react to light. Fundi are normal Ears TMs and external ear canals are normal Pharynx throat and gums are normal. NECK: Supple, no lymphadenopathy, normal thyroid, no carotid bruits and no JVD BACK: Back symmetric, Normal curvature, No CVAT. LUNGS: normal pulmonary exam and clear to auscultation and percussion HEART: Normal PMI, Regular rate and rhythm, Normal heart sounds, S1 and S2 and No murmurs. BREASTS: ABDOMEN: Soft, Non-tender, No palpable masses and No hepatosplenomegaly. EXTREMTIES: extremities normal, no deformities, no skin discoloration, no edema, normal pulses bilaterally. NEURO: Awake, alert and oriented x 3, Normal gait, No involuntary motions., muscle tone normal, muscle strength normal. No tremor noted GENITALIA: Penis normal, no urethral discharge, scrotum normal to palpation, no hernias RECTAL: Anus normal, no anorectal masses, Prostate normal size, consistency, no nodules, and no tenderness Lab Results for JESSI LOPEZ ( ) as of 02/11/2018 11:52 Ref. Range 12/21/2017 00:00 Albumin Latest Ref Range: 3.2 - 4.6 gm/dL 3.7 AST Latest Ref Range: 8 - 37 U/L 21 Triglyceride Latest Ref Range: 149 mg/dL 79 LDL Cholesterol Unknown 58 Alk Phos Total Latest Ref Range: 45 - 117 U/L 102 ALT (SGPT) Latest Ref Range: 12 - 78 U/L 21 Cholesterol, Total Latest Ref Range: 0 - 200 MG/DL 124 HDC-L Latest Ref Range: 41 mg/dL 50 (A) LDL Chol, calculated Latest Ref Range: 130 MG/DL 58 Total Protein Latest Ref Range: 6.4 - 8.2 gm/dL 6.9 ASSESSMENT: GERD--well controlled suspicious skin lesions Parkinson's dis--stable hyperlipidemia--at goal depression--well controlled ASHD--stable PLAN: healthy diet and regular exercise as able consider exercycle same medications dermatology referral prevnar 13 vaccination given MOISÉS Mccray MD, III MD 02/11/2018 12:02 PM Signed PLAN: healthy diet and regular exercise as able consider exercycle same medications dermatology referral prevnar 13 vaccination given Misael Woo III MD Referring Provider: MISAEL WOO III [[id number]] Allergies As of Date: 02/11/2018 Noted Allergy Reaction ARICEPT (DONEPEZIL) 03/29/2010 6 - Diarrhea CYMBALTA (DULOXETINE) 12/21/2004 EFFEXOR (VENLAFAXINE HCL) 12/21/2004 PERCOCET (OXYCODONE-ACETAMINOPHEN)08/22/2006 7 - Swelling Date Reviewed: 02/11/2018 Reviewed by: Erinn [facility] TYSON Espitia - Fully Assessed Reason for Visit: Physical [83] Primary Visit Diagnosis:Encounter for routine adult medical exam with abnormal findings [Z00.01] Other Visit Diagnoses:Depression, unspecified depression type [F32.9] Anxiety [F41.9] Elevated prostate specific antigen (PSA) [R97.20] Benign prostatic hyperplasia with urinary obstruction [N40.1, N13.8] Sleep apnea, unspecified type [G47.30] Coronary artery disease involving [place] heart without angina pectoris, unspecified vessel or lesion type [I25.10] Hyperlipidemia LDL goal <100 [E78.5] Actinic keratosis [L57.0] Skin lesion of left leg [L98.9] Need for vaccination [Z23] Order(s):FLUoxetine (PROZAC) 20 mg capsuleTake 1 capsule by mouth once daily.Disp: 90 capsuleRfl: 3 PNEUMOCOCCAL-13 VACCINE PCV-13 [[id number]] Order #: [id number] sildenafil (VIAGRA) 100 mg tabletuse as directed , as neededDisp: 20 tabletRfl: 5 doxazosin (CARDURA) 4 mg tabletTake 1 tablet by mouth once daily.Disp: 90 tabletRfl: 3 finasteride (PROSCAR) 5 mg tabletTake 1 tablet by mouth once daily.Disp: 90 tabletRfl: 3 CONSULT TO DERMATOLOGY [9006] Order #: [id number]: 1 Prescriptions as of 02/11/2018 Sig: FLUOXETINE 20 MG CAPSULE Take 1 capsule by mouth once * DOXAZOSIN 4 MG TABLET Take 1 tablet by mouth once d* FINASTERIDE 5 MG TABLET Take 1 tablet by mouth once d* GABAPENTIN 300 MG CAPSULE Take 1-3 capsules by mouth th* ETODOLAC ER 500 MG TABLET,EXT* Take 1 tablet by mouth once d* ASPIRIN 81 MG TABLET,DELAYED * Take 81 mg by mouth once mingo* CARBIDOPA 25 MG-LEVODOPA 100 * Take 1 tablet by mouth three * OMEPRAZOLE 20 MG CAPSULE,MATTY* Take one(1) tablet daily. LIPITOR 80 MG TABLET Take one(1) tablet daily for * PLAVIX 75 MG TABLET Take one(1) tablet daily. VITAMIN B-6 200 MG TABLET Take one(1) tablet daily. VITAMIN B-12 500 MCG TABLET Take one(1) tablet daily. SILDENAFIL 100 MG TABLET use as directed , as needed Problem List As Of Date 02/11/2018 Noted Resolved Major depressive disorder, recurrent episode, u* 04/26/2016 Diarrhea [R19.7] 03/26/2009 Unspecified Hemorrhoids without Mention of Comp* 03/26/2009 Peptic ulcer, unspecified site, unspecified as *INVALID FOR*05/26/2015 Unspecified Esophagitis [K20.9] INVALID FOR*03/26/2009 Acute Gastritis without Mention of Hemorrhage [*INVALID FOR*03/26/2009 Calculus of kidney [N20.0] INVALID FOR*05/26/2015 ELEVATED PROSTATE SPECIFIC ANTIGEN [R97.20] INVALID FOR* Sleep apnea [G47.30] INVALID FOR* Benign prostatic hyperplasia with urinary obstr*INVALID FOR* Bladder neck obstruction [N32.0] INVALID FOR*04/26/2016 CAD (Coronary Artery Disease) [I25.10] INVALID FOR* Postsurgical Percutaneous Transluminal Coronary*INVALID FOR* Plantar fascial fibromatosis [M72.2] INVALID FOR*05/26/2015 Memory loss [R41.3] INVALID FOR*04/26/2016 Memory change [R41.3] INVALID FOR*04/26/2016 Degenerative cervical disc [M50.30] INVALID FOR*04/26/2016 Depression [F32.9] INVALID FOR*04/26/2016 Ulnar neuropathy [G56.20] INVALID FOR*05/26/2015 Tremor [R25.1] INVALID FOR* Nausea alone [R11.0] INVALID FOR*05/26/2015 Esophagitis, unspecified [K20.9] INVALID FOR*05/26/2015 Family history of malignant neoplasm of gastroi*INVALID FOR* Diarrhea [R19.7] INVALID FOR*05/26/2015 Sebaceous cyst [L72.3] INVALID FOR*04/26/2016 Acute left lumbar radiculopathy [M54.16] INVALID FOR*04/26/2016 Family history of prostate cancer [Z80.42] INVALID FOR* Arthritis of both knees [M17.0] INVALID FOR* CTS (carpal tunnel syndrome) [G56.00] INVALID FOR*04/26/2016 S/P coronary artery stent placement [Z95.5] INVALID FOR* Anxiety [F41.9] INVALID FOR* Hiatal hernia [K44.9] INVALID FOR*04/26/2016 Carpal tunnel syndrome of left wrist [G56.02] INVALID FOR*04/26/2016 Plantar fasciitis of left foot [M72.2] INVALID FOR*04/26/2016 Peroneus longus tendinitis [M76.70] INVALID FOR*04/26/2016 Os peroneum syndrome of left foot [M77.52] INVALID FOR*04/26/2016 Peroneus brevis tendinitis [M76.70] INVALID FOR*04/26/2016 Hyperlipidemia LDL goal <100 [E78.5] INVALID FOR* Osteoarthritis of both hands [M19.041, M19.042] INVALID FOR* Trigger index finger of right hand [M65.321] INVALID FOR* Depression [F32.9] INVALID FOR* Other instructions from your clinician: PLAN: healthy diet and regular exercise as able consider exercycle same medications dermatology referral prevnar 13 vaccination given Misael Woo III MD Prescriptions ordered this encounter Disp Refills Start End FLUOXETINE 20 MG CAPSULE 90 c* 3 02/11/2018 Route: ORAL Sig: Take 1 capsule by mouth once daily. SILDENAFIL 100 MG TABLET 20 t* 5 02/11/2018 Sig: use as directed , as needed DOXAZOSIN 4 MG TABLET 90 t* 3 02/11/2018 Route: ORAL Sig: Take 1 tablet by mouth once daily. FINASTERIDE 5 MG TABLET 90 t* 3 02/11/2018 Route: ORAL Sig: Take 1 tablet by mouth once daily. Medications Discontinued During This Encounter doxazosin (CARDURA) 4 mg tablet 90 t* 1 08/12/2017 02/11/2018 Sig: TAKE 1 TABLET ONCE DAILY Disc: Duplicate Entry finasteride (PROSCAR) 5 mg tablet 14 t* 1 02/22/2017 02/11/2018 Route: ORAL Sig: Take 1 tablet by mouth once daily. Patient not taking: Reported on 12/21/2017 Disc: Duplicate Entry FLUoxetine (PROZAC) 20 mg capsule 90 c* 3 03/21/2017 02/11/2018 Route: ORAL Sig: Take 1 capsule by mouth once daily. Disc: Reason for discontinue is not on file. doxazosin (CARDURA) 4 mg tablet 90 t* 0 01/07/2018 02/11/2018 Sig: TAKE 1 TABLET ONCE DAILY Disc: Reason for discontinue is not on file. finasteride (PROSCAR) 5 mg tablet 90 t* 0 01/07/2018 02/11/2018 Sig: TAKE 1 TABLET ONCE DAILY Disc: Reason for discontinue is not on file. Encounter Status:Closed by MISAEL WOO III, MD [facility]11/[facility] Observed: 01/28/2018 Status: COMPLETED Source: [place] 12:00 AM [facility] REPOSITORY Patient Outreach (FAMPST) JESSI LOPEZ ([id number]) 1950 M Date Time Provider Department 01/28/18 MISAEL WOO IIIPSYesenia During your visit today, we recorded the following information about you: Allergies As of Date: 01/28/2018 Noted Allergy Reaction ARICEPT (DONEPEZIL) 03/29/2010 6 - Diarrhea CYMBALTA (DULOXETINE) 12/21/2004 EFFEXOR (VENLAFAXINE HCL) 12/21/2004 PERCOCET (OXYCODONE-ACETAMINOPHEN)08/22/2006 7 - Swelling Date Reviewed: 12/21/2017 Reviewed by: Elizabeth ([facility]) Ignacio - Fully Assessed Visit Diagnosis:Medication management [Z79.899] Order(s):LIPID PANEL BASIC [SQLIPB] Order #: [id number] FUTURE Prescriptions as of 01/28/2018 Sig: X DOXAZOSIN 4 MG TABLET TAKE 1 TABLET ONCE DAILY X FINASTERIDE 5 MG TABLET TAKE 1 TABLET ONCE DAILY X DOXAZOSIN 4 MG TABLET TAKE 1 TABLET ONCE DAILY X FLUOXETINE 20 MG CAPSULE Take 1 capsule by mouth once * X FINASTERIDE 5 MG TABLET Take 1 tablet by mouth once d* Patient not taking: Reported on 12/21/2017 GABAPENTIN 300 MG CAPSULE Take 1-3 capsules by mouth th* ETODOLAC ER 500 MG TABLET,EXT* Take 1 tablet by mouth once d* ASPIRIN 81 MG TABLET,DELAYED * Take 81 mg by mouth once mingo* CARBIDOPA 25 MG-LEVODOPA 100 * Take 1 tablet by mouth three * OMEPRAZOLE 20 MG CAPSULE,MATTY* Take one(1) tablet daily. LIPITOR 80 MG TABLET Take one(1) tablet daily for * PLAVIX 75 MG TABLET Take one(1) tablet daily. VITAMIN B-6 200 MG TABLET Take one(1) tablet daily. VITAMIN B-12 500 MCG TABLET Take one(1) tablet daily. Problem List As Of Date 01/28/2018 Noted Resolved Major depressive disorder, recurrent episode, u* 04/26/2016 Diarrhea [R19.7] 03/26/2009 Unspecified Hemorrhoids without Mention of Comp* 03/26/2009 Peptic ulcer, unspecified site, unspecified as *INVALID FOR*05/26/2015 Unspecified Esophagitis [K20.9] INVALID FOR*03/26/2009 Acute Gastritis without Mention of Hemorrhage [*INVALID FOR*03/26/2009 Calculus of kidney [N20.0] INVALID FOR*05/26/2015 ELEVATED PROSTATE SPECIFIC ANTIGEN [R97.20] INVALID FOR* Sleep apnea [G47.30] INVALID FOR* Benign prostatic hyperplasia with urinary obstr*INVALID FOR* Bladder neck obstruction [N32.0] INVALID FOR*04/26/2016 CAD (Coronary Artery Disease) [I25.10] INVALID FOR* Postsurgical Percutaneous Transluminal Coronary*INVALID FOR* Plantar fascial fibromatosis [M72.2] INVALID FOR*05/26/2015 Memory loss [R41.3] INVALID FOR*04/26/2016 Memory change [R41.3] INVALID FOR*04/26/2016 Degenerative cervical disc [M50.30] INVALID FOR*04/26/2016 Depression [F32.9] INVALID FOR*04/26/2016 Ulnar neuropathy [G56.20] INVALID FOR*05/26/2015 Tremor [R25.1] INVALID FOR* Nausea alone [R11.0] INVALID FOR*05/26/2015 Esophagitis, unspecified [K20.9] INVALID FOR*05/26/2015 Family history of malignant neoplasm of gastroi*INVALID FOR* Diarrhea [R19.7] INVALID FOR*05/26/2015 Sebaceous cyst [L72.3] INVALID FOR*04/26/2016 Acute left lumbar radiculopathy [M54.16] INVALID FOR*04/26/2016 Family history of prostate cancer [Z80.42] INVALID FOR* Arthritis of both knees [M17.0] INVALID FOR* CTS (carpal tunnel syndrome) [G56.00] INVALID FOR*04/26/2016 S/P coronary artery stent placement [Z95.5] INVALID FOR* Anxiety [F41.9] INVALID FOR* Hiatal hernia [K44.9] INVALID FOR*04/26/2016 Carpal tunnel syndrome of left wrist [G56.02] INVALID FOR*04/26/2016 Plantar fasciitis of left foot [M72.2] INVALID FOR*04/26/2016 Peroneus longus tendinitis [M76.70] INVALID FOR*04/26/2016 Os peroneum syndrome of left foot [M77.52] INVALID FOR*04/26/2016 Peroneus brevis tendinitis [M76.70] INVALID FOR*04/26/2016 Hyperlipidemia LDL goal <100 [E78.5] INVALID FOR* Osteoarthritis of both hands [M19.041, M19.042] INVALID FOR* Trigger index finger of right hand [M65.321] INVALID FOR* Depression [F32.9] INVALID FOR* Encounter Status:Closed by EPIC, PRODUSER on 02/28/18 [facility] Observed: 12/21/2017 Status: COMPLETED Source: [place] 10:11 AM [facility] REPOSITORY HNO ID: [id number] Author: Elizabeth Holt Service: (none) Author Type: Nurse Practitioner Type: Progress Notes Filed: 12/21/2017 10:18 AM Note Text: Subjective The history is provided by the patient. No language and literature division chair was used. HPI Jessi Lopez is a 67 year old male who presents today for CC of puncture wound to foot from kailyn nail. Onset/Duration: yesterday Alleviating/Treatment: Cleansed wound with soap and water Aggravating: walking Risk factors: Trauma to foot from rust nail, last tetanus 2005 BP 122/58 Pulse (!) 58 Temp 36.8 ?C (98.3 ?F) (Left Tympanic) Resp 16 Wt 91.5 kg (201 lb 12.8 oz) SpO2 98% BMI 30.68 kg/m? ALLERGIES Allergen Reactions - Aricept [Donepezil] Diarrhea - Cymbalta [Duloxetin* - Effexor [Venlafaxin* - Percocet [Oxycodone* Swelling ACTIVE PROBLEM LIST Elevated Prostate Specific Antigen (Psa) Sleep Apnea Benign Prostatic Hyperplasia With Urinary Obstruction Cad (Coronary Artery Disease) Postsurgical Percutaneous Transluminal Coronary Angioplasty Status Tremor Family History of Malignant Neoplasm of Gastrointestinal Tract Family History of Prostate Cancer Arthritis of Both Knees S/P Coronary Artery Stent Placement Anxiety Hyperlipidemia Ldl Goal <100 Osteoarthritis of Both Hands Trigger Index Finger of Right Hand Depression Family History Problem Relation Age of Onset - Heart Mother - Colon Cancer Mother - Heart Father - Heart Brother PA age 56 - Prostate Cancer Brother 67 radiation seeds - other (lung cancer) Sister 65 non-smoker - None Sister - other (myocardial infarction) Brother Social History Marital status: Spouse name: Berenice Years of education: Number of children: 3 Occupational History 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, 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 Social History Main Topics Smoking status: Never Smoker Smokeless tobacco: Never Used Alcohol use: Yes Comment: rarely Drug use: No PAST MEDICAL HISTORY Diagnosis Date - Acute gastritis without mention of hemorrhage - Acute left lumbar radiculopathy 09/03/2012 - Anxiety state, unspecified - Arthritis of both knees 10/01/2013 - Blood stool - Cervical disc disorder with radiculopathy 04/25/2010 - Coronary artery disease - CTS (carpal tunnel syndrome) 10/01/2013 - Degenerative cervical disc 03/27/2010 - Depression 03/27/2010 - Diarrhea - Diarrhea - Diarrhea - Esophagitis, unspecified - Esophagitis, unspecified - Family history of malignant neoplasm of gastrointestinal tract - Hyperlipidemia LDL goal <100 04/26/2016 - Major depressive disorder, recurrent episode, unspecified - Memory loss 01/28/2010 - Nausea alone - Obsessive-compulsive disorders - Parkinson's disease (HCC) 07/26/2010 - PEPTIC ULCER NOS 03/23/2006 - Tremor 05/12/2010 - Ulnar neuropathy 05/12/2010 - Unspecified hemorrhoids without mention of complication internal Review of Systems Constitutional: Negative for chills, fever and malaise/fatigue. Genitourinary: Negative for dysuria. Musculoskeletal: Negative for joint pain and myalgias. Skin: Negative for rash. Puncture wound Neurological: Negative for headaches. Objective Physical Exam Constitutional: He is oriented to person, place, and time and well-developed, well-nourished, and in no distress. No distress. HENT: Head: Normocephalic and atraumatic. Eyes: Pupils are equal, round, and reactive to light. Conjunctivae and EOM are normal. Neck: Normal range of motion. Neck supple. Pulmonary/Chest: Effort normal. Musculoskeletal: Feet: Neurological: He is alert and oriented to person, place, and time. Skin: Skin is warm and dry. Psychiatric: Affect normal. Nursing note and vitals reviewed. ASSESSMENT/PLAN: 1. Puncture wound - ICD9: 879.8, ICD10: T14.8XXA Wound Care - Keep the area clean and dry -Clean with soap and water . -Tylenol or Ibuprofen for discomfort -Observe area for signs of infection: redness, warmth, foul odor, drainage or increase in discomfort. Call you primary care physician if this occurs. -Call your primary care physician's office for a follow up appointment if needed. - TDAP VACCINE AGE 7+ IM Diagnosis and treatment plan were discussed and questions were answered to the patient's satisfaction. Pt acknowledged understanding of concepts and follow up plan. Specific signs and symptoms that would indicate the need for higher level of care were discussed in detail warranting prompt ER evaluation. Elizabeth Holt APRN.[employer] Observed: 12/21/2017 Status: COMPLETED Source: [place] 10:00 AM [facility] REPOSITORY Office Visit (UCWSTR) JESSI LOPEZ ([id number]) 1950 M Date Time Provider Department 12/21/17 10:00 AM ELIZABETH HOLT ([facility]) [facility] During your visit today, we recorded the following information about you: Temperature Pulse Respiration Blood pressure 98.3 degrees 58/minute 16/minute 122/58 Weight 91.5 kg Elizabeth Holt APRN.CNP 12/21/2017 10:18 AM Signed Subjective The history is provided by the patient. No language and literature division chair was used. HPI Jessi Lopez is a 67 year old male who presents today for CC of puncture wound to foot from kailyn nail. Onset/Duration: yesterday Alleviating/Treatment: Cleansed wound with soap and water Aggravating: walking Risk factors: Trauma to foot from rust nail, last tetanus 2005 BP 122/58 Pulse (!) 58 Temp 36.8 ?C (98.3 ?F) (Left Tympanic) Resp 16 Wt 91.5 kg (201 lb 12.8 oz) SpO2 98% BMI 30.68 kg/m? ALLERGIES Allergen Reactions - Aricept [Donepezil] Diarrhea - Cymbalta [Duloxetin* - Effexor [Venlafaxin* - Percocet [Oxycodone* Swelling ACTIVE PROBLEM LIST Elevated Prostate Specific Antigen (Psa) Sleep Apnea Benign Prostatic Hyperplasia With Urinary Obstruction Cad (Coronary Artery Disease) Postsurgical Percutaneous Transluminal Coronary Angioplasty Status Tremor Family History of Malignant Neoplasm of Gastrointestinal Tract Family History of Prostate Cancer Arthritis of Both Knees S/P Coronary Artery Stent Placement Anxiety Hyperlipidemia Ldl Goal <100 Osteoarthritis of Both Hands Trigger Index Finger of Right Hand Depression Family History Problem Relation Age of Onset - Heart Mother - Colon Cancer Mother - Heart Father - Heart Brother PA age 56 - Prostate Cancer Brother 67 radiation seeds - other (lung cancer) Sister 65 non-smoker - None Sister - other (myocardial infarction) Brother Social History Marital status: Spouse name: Berenice Years of education: Number of children: 3 Occupational History 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, 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 Social History Main Topics Smoking status: Never Smoker Smokeless tobacco: Never Used Alcohol use: Yes Comment: rarely Drug use: No PAST MEDICAL HISTORY Diagnosis Date - Acute gastritis without mention of hemorrhage - Acute left lumbar radiculopathy 09/03/2012 - Anxiety state, unspecified - Arthritis of both knees 10/01/2013 - Blood stool - Cervical disc disorder with radiculopathy 04/25/2010 - Coronary artery disease - CTS (carpal tunnel syndrome) 10/01/2013 - Degenerative cervical disc 03/27/2010 - Depression 03/27/2010 - Diarrhea - Diarrhea - Diarrhea - Esophagitis, unspecified - Esophagitis, unspecified - Family history of malignant neoplasm of gastrointestinal tract - Hyperlipidemia LDL goal <100 04/26/2016 - Major depressive disorder, recurrent episode, unspecified - Memory loss 01/28/2010 - Nausea alone - Obsessive-compulsive disorders - Parkinson's disease (HCC) 07/26/2010 - PEPTIC ULCER NOS 03/23/2006 - Tremor 05/12/2010 - Ulnar neuropathy 05/12/2010 - Unspecified hemorrhoids without mention of complication internal Review of Systems Constitutional: Negative for chills, fever and malaise/fatigue. Genitourinary: Negative for dysuria. Musculoskeletal: Negative for joint pain and myalgias. Skin: Negative for rash. Puncture wound Neurological: Negative for headaches. Objective Physical Exam Constitutional: He is oriented to person, place, and time and well-developed, well-nourished, and in no distress. No distress. HENT: Head: Normocephalic and atraumatic. Eyes: Pupils are equal, round, and reactive to light. Conjunctivae and EOM are normal. Neck: Normal range of motion. Neck supple. Pulmonary/Chest: Effort normal. Musculoskeletal: Feet: Neurological: He is alert and oriented to person, place, and time. Skin: Skin is warm and dry. Psychiatric: Affect normal. Nursing note and vitals reviewed. ASSESSMENT/PLAN: 1. Puncture wound - ICD9: 879.8, ICD10: T14.8XXA Wound Care - Keep the area clean and dry -Clean with soap and water . -Tylenol or Ibuprofen for discomfort -Observe area for signs of infection: redness, warmth, foul odor, drainage or increase in discomfort. Call you primary care physician if this occurs. -Call your primary care physician's office for a follow up appointment if needed. - TDAP VACCINE AGE 7+ IM Diagnosis and treatment plan were discussed and questions were answered to the patient's satisfaction. Pt acknowledged understanding of concepts and follow up plan. Specific signs and symptoms that would indicate the need for higher level of care were discussed in detail warranting prompt ER evaluation. Elizabeth Holt APRN.JASON Holt APRN.CNP 12/21/2017 10:18 AM Signed ASSESSMENT/PLAN: 1. Puncture wound - ICD9: 879.8, ICD10: T14.8XXA Wound Care - Keep the area clean and dry -Clean with soap and water . -Tylenol or Ibuprofen for discomfort -Observe area for signs of infection: redness, warmth, foul odor, drainage or increase in discomfort. Call you primary care physician if this occurs. -Call your primary care physician's office for a follow up appointment if needed. - TDAP VACCINE AGE 7+ IM Referring Provider: SELF [[id number]] Allergies As of Date: 12/21/2017 Noted Allergy Reaction ARICEPT (DONEPEZIL) 03/29/2010 6 - Diarrhea CYMBALTA (DULOXETINE) 12/21/2004 EFFEXOR (VENLAFAXINE HCL) 12/21/2004 PERCOCET (OXYCODONE-ACETAMINOPHEN)08/22/2006 7 - Swelling Date Reviewed: 12/21/2017 Reviewed by: Tiffanie Peck Ma - Fully Assessed Reason for Visit: stepped on kailyn nail [Other] Primary Visit Diagnosis:Puncture wound [T14.8XXA] Order(s):TDAP VACCINE AGE 7+ IM [[id number]] Order #: [id number] Prescriptions as of 12/21/2017 Sig: DOXAZOSIN 4 MG TABLET TAKE 1 TABLET ONCE DAILY FLUOXETINE 20 MG CAPSULE Take 1 capsule by mouth once * FINASTERIDE 5 MG TABLET Take 1 tablet by mouth once d* GABAPENTIN 300 MG CAPSULE Take 1-3 capsules by mouth th* ETODOLAC ER 500 MG TABLET,EXT* Take 1 tablet by mouth once d* ASPIRIN 81 MG TABLET,DELAYED * Take 81 mg by mouth once mingo* CARBIDOPA 25 MG-LEVODOPA 100 * Take 1 tablet by mouth three * OMEPRAZOLE 20 MG CAPSULE,MATTY* Take one(1) tablet daily. LIPITOR 80 MG TABLET Take one(1) tablet daily for * PLAVIX 75 MG TABLET Take one(1) tablet daily. VITAMIN B-6 200 MG TABLET Take one(1) tablet daily. VITAMIN B-12 500 MCG TABLET Take one(1) tablet daily. FINASTERIDE 5 MG TABLET Take 1 tablet by mouth once d* Patient not taking: Reported on 12/21/2017 Problem List As Of Date 12/21/2017 Noted Resolved Major depressive disorder, recurrent episode, u* 04/26/2016 Diarrhea [R19.7] 03/26/2009 Unspecified Hemorrhoids without Mention of Comp* 03/26/2009 Peptic ulcer, unspecified site, unspecified as *INVALID FOR*05/26/2015 Unspecified Esophagitis [K20.9] INVALID FOR*03/26/2009 Acute Gastritis without Mention of Hemorrhage [*INVALID FOR*03/26/2009 Calculus of kidney [N20.0] INVALID FOR*05/26/2015 ELEVATED PROSTATE SPECIFIC ANTIGEN [R97.20] INVALID FOR* Sleep apnea [G47.30] INVALID FOR* Benign prostatic hyperplasia with urinary obstr*INVALID FOR* Bladder neck obstruction [N32.0] INVALID FOR*04/26/2016 CAD (Coronary Artery Disease) [I25.10] INVALID FOR* Postsurgical Percutaneous Transluminal Coronary*INVALID FOR* Plantar fascial fibromatosis [M72.2] INVALID FOR*05/26/2015 Memory loss [R41.3] INVALID FOR*04/26/2016 Memory change [R41.3] INVALID FOR*04/26/2016 Degenerative cervical disc [M50.30] INVALID FOR*04/26/2016 Depression [F32.9] INVALID FOR*04/26/2016 Ulnar neuropathy [G56.20] INVALID FOR*05/26/2015 Tremor [R25.1] INVALID FOR* Nausea alone [R11.0] INVALID FOR*05/26/2015 Esophagitis, unspecified [K20.9] INVALID FOR*05/26/2015 Family history of malignant neoplasm of gastroi*INVALID FOR* Diarrhea [R19.7] INVALID FOR*05/26/2015 Sebaceous cyst [L72.3] INVALID FOR*04/26/2016 Acute left lumbar radiculopathy [M54.16] INVALID FOR*04/26/2016 Family history of prostate cancer [Z80.42] INVALID FOR* Arthritis of both knees [M17.0] INVALID FOR* CTS (carpal tunnel syndrome) [G56.00] INVALID FOR*04/26/2016 S/P coronary artery stent placement [Z95.5] INVALID FOR* Anxiety [F41.9] INVALID FOR* Hiatal hernia [K44.9] INVALID FOR*04/26/2016 Carpal tunnel syndrome of left wrist [G56.02] INVALID FOR*04/26/2016 Plantar fasciitis of left foot [M72.2] INVALID FOR*04/26/2016 Peroneus longus tendinitis [M76.70] INVALID FOR*04/26/2016 Os peroneum syndrome of left foot [M77.52] INVALID FOR*04/26/2016 Peroneus brevis tendinitis [M76.70] INVALID FOR*04/26/2016 Hyperlipidemia LDL goal <100 [E78.5] INVALID FOR* Osteoarthritis of both hands [M19.041, M19.042] INVALID FOR* Trigger index finger of right hand [M65.321] INVALID FOR* Depression [F32.9] INVALID FOR* Other instructions from your clinician: ASSESSMENT/PLAN: 1. Puncture wound - ICD9: 879.8, ICD10: T14.8XXA Wound Care - Keep the area clean and dry -Clean with soap and water . -Tylenol or Ibuprofen for discomfort -Observe area for signs of infection: redness, warmth, foul odor, drainage or increase in discomfort. Call you primary care physician if this occurs. -Call your primary care physician's office for a follow up appointment if needed. - TDAP VACCINE AGE 7+ IM Encounter Status:Closed by ELIZABETH HOLT CNP on 12/21/17 LIVER PROFILE Collected: 12/21/2017 Status: F Source: NORM 9:17 AM [facility] REPOSITORY TYPE CODE TESTS RESULT OUT OF RANGE REFERENCE UNITS LAB L501.1500 6.4-8.2 g/dL Normal T PROT 6.9 LAB L501.1800 3.2-5.0 g/dL Normal ALB 3.7 LAB L501.1950 2.2-4.2 g/dL Normal GLOB 3.2 LAB L501.4100 15-37 U/L Normal AST 21 LAB L501.4305 45-117 U/L Normal ALK P 102 LAB L501.4405 16-61 U/L Normal ALT 23 LAB L501.4600 0.20-1.00 mg/dL Normal T BILI 0.50 LAB L501.4700 0.00-0.30 mg/dL Normal D BILI 0.15 Performed By: #### L500.3400, L500.4100 #### [facility] [address] [place], [address] LIPID PROFILE Collected: 12/21/2017 Status: F Source: NORM 9:17 AM [facility] REPOSITORY TYPE CODE TESTS RESULT OUT OF RANGE REFERENCE UNITS LAB L501.4900 200 mg/dL Normal CHOL 124 Result Comment: <200 mg/dL Desirable 200-240 mg/dL Borderline >240 mg/dL High Risk LAB L501.5000 mg/dL Normal TRIG 79 Result Comment: The drugs N-Acetylcysteine and Metamizole may falsely depress this assay. Serum Triglycerides Reference Interval Normal <150 mg/dL Borderline high 150 - 199 mg/dL High 200 - 499 mg/dL Very High > or = 500 mg/dL LAB L501.6400 mg/dL Normal HDL 50 Result Comment: The drugs N-Acetylcysteine and Metamizole may falsely depress this assay. Reference Range HDL <40 mg/dL Low HDL Cholesterol HDL >or= 60 mg/dL High HDL Cholesterol LAB L501.6500 0-130 mg/dL Normal LDL 58 LAB L501.6600 5-40 mg/dL Normal VLDL 16 Performed By: #### L500.3400, L500.4100 #### [facility] [address] [place], [place], [address] CARDIOLOGY VISIT Observed: 12/03/2017 Status: F Source: NORM REPORT 2:03 PM [facility] REPOSITORY [facility] [address] [place] [address] OFFICE VISIT Date of Service: 12/03/17 MR#: [id number] Acct: [id number] Name: JESSI LOPEZ Rep #: [id number] : 1950 Provider: Heriberto Villalobos MD Age/Sex: 67/M Location: [facility] Status: Signed HPI HPI Chief Complaint: Routine f/u Details: JESSI LOPEZ, is a 67 M who presents to the office today for a cardiovascular follow-up. He has a history of coronary artery disease with angioplasty and stenting to his LAD and circumflex in 2008, and IVUS guided stenting to his RCA in 2013. He also has a history of hypertension and hyperlipidemia. He is a former patient of Dr. Bhatti's and is here in follow up. Patient wishes to switch given his history of stents. Patient had no issues whatsoever with Dr. Bhatti. From a cardiac standpoint he denies any chest pain, angina, shortness of breath or dyspnea on exertion. He is recently rehabbed a large barn on his own, with no difficulty whatsoever. He is taking and tolerating his medicines well. Her office today's blood pressure is 120/60, pulse is 60 and regular. His physical exam is as below. His lipids as of 06/06/17 showed LDL of 65 and HDL of 49. Intake Vital Signs12/03/17 Height 5 ft 8.75 in 12/03/17 Weight: 206 lb 12/03/17 Body Mass Index (BMI) 30.6 12/03/17 Blood Pressure 120/50 Intake Visit Reasons: 6 M FU (pt switching from [employer] WORK[employer] to DJN) Equity Analyst Required: No Is patient in pain?: No Allergies oxycodone HCl [From Percocet] Allergy (Intermediate, Verified 12/03/17 13:48) Itching duloxetine HCl [From Cymbalta] Adverse Reaction (Intermediate, Verified 12/03/17 13:48) Mood Change venlafaxine HCl [From Effexor] Adverse Reaction (Intermediate, Verified 12/03/17 13:48) Mood change aricept Adverse Reaction (Intermediate, Uncoded 06/03/17 10:58) GI upset Medications Atorvastatin Calcium [Lipitor] 80 mg PO QHS 10/01/13 [History Confirmed 12/02/17] Carbidopa/Levodopa [Sinemet Cr 25-100 Tablet] 1 ea PO TID 10/01/13 [History Confirmed 12/02/17] Cyanocobalamin [Vitamin B12] 500 mcg PO DAILY@0800 10/01/13 [History Confirmed 12/02/17] Doxazosin Mesylate [Cardura] 4 mg PO QHS 10/01/13 [History Confirmed 12/02/17] Finasteride [Proscar] 5 mg PO DAILY 10/01/13 [History Confirmed 12/02/17] Omeprazole [Prilosec] 20 mg PO DAILY 10/01/13 [History Confirmed 12/02/17] Pyridoxine HCl [Vitamin B6] 200 mg PO DAILY 10/01/13 [History Confirmed 12/02/17] aspirin 81 mg tablet,delayed release 81 mg PO QDAY 12/02/17 [History Confirmed 12/02/17] gabapentin 300 mg capsule 300 mg PO QDAY PRN 12/03/17 [History Confirmed 12/03/17] [facility] 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) Hyperlipidemia (Chronic) Atherosclerotic heart disease of [place] coronary artery without angina pectoris (Chronic) Atrial fibrillation (Chronic) Family history of premature coronary heart disease (Chronic) Surgical History History of percutaneous transluminal coronary angioplasty (Chronic) Family History Father Myocardial infarction Heart disease Mother Cancer Brother Myocardial infarction Sister Cancer Social History Smoking Status: Never smoker alcohol intake: never substance use type: does not use caffeine: Yes Type: carbonated beverages what type of physical activity do you participate in: walking frequency: 3-4 times per week duration: 15-30 minutes/day seatbelt use: always do you feel safe at home: Yes ROS Const Const: Negative for fatigue, weakness, body ache, fever(s), headache(s), chills, frequent falls, night sweats, daytime sleepiness, difficulty sleeping, excessive sweating, weight gain, weight loss, increased appetite, poor appetite, anorexia or other Eyes Eyes: Negative for blind spots, loss of peripheral vision, transient loss of vision, blurry vision, change in vision, double vision, floaters, tunnel vision or other ENT ENT: Negative for headache(s), dizziness, hearing loss, tinnitus, Nosebleed/epistaxis, balance problems, post nasal drip, lip swelling, tongue swelling, bleeding gums, hoarseness, neck pain, dry mouth or other Cardio Chest Pain: No Palpitations: No Edema: None Muscle aches with walking: None Resp Respiratory: Negative for SOB with activity, SOB at rest, SOB orthopnea\SOB lying down, Cough, Coughing up blood/hemoptysis, chest congestion, pain on inspiration, snoring, stridor, wheezing, crackles, paroxysmal nocturnal dyspnea or other GI GI: Negative nausea, vomiting, heartburn, constipation, belching, bloating, cramping, vomiting blood/hematemesis, bright, red blood in stools, black,tarry stools, loose stools, Difficulty Swallowing or other : Negative for hematuria, frequent nighttime urination/ nocturia, erectile dysfunction or abnormal vaginal bleeding Musc Musc: Negative for balance problems, muscle aches/ myalgia, muscle weakness or joint pain Skin Skin: Negative redness, non-healing lesions, rash, unusual bruising, skin ulcer, wounds, jaundice or other Neuro Neuro: Negative for weakness, headache(s), frequent falls, blurry vision, double vision, dizziness, lightheadedness, near syncope, syncope, orthostatic symptoms, confusion, memory loss, restless legs, vertigo, seizures, lack of coordination or other Jose Hematologic/Lymphatic: Negative for easy bleeding, easy bruising, enlarged lymph nodes or other Endo Endo: Negative for fatigue, excessive sweating, cold intolerance, heat intolerance, flushing, increased thirst/drinking, increased hunger, hair loss, hair growth or other Psych Psych: Negative for anxiety, depression, thoughts of harming anyone, thoughts of harming yourself, visual hallucinations, panic attacks or audible hallucinations Allergy Allergy/Immunology: Negative for lip swelling, Negative for tongue swelling, Negative for rash, Negative for throat swelling, Negative for hives Cardiology Exam Const Appearance: cooperative, healthy appearing and no acute distress Nutritional Appearance: well nourished Orientation: alert, oriented x3 and oriented to person Head Head: normal to inspection, atraumatic and normocephalic Nose: external nose normal Face and Sinus: face symmetric Mouth: oral mucosae normal Eyes General: appearance normal, both eyes and all related structures Eyelids: eyelids normal Conjunctivae: conjunctivae normal Pupils: PERRL and normal by confrontation EOM: EOM intact bilaterally Neck Neck: normal visual inspection and full ROM Carotids: normal carotid upstroke Chest Chest inspection: normal inspection of the chest Auscultation: Bilateral: Clear to Auscultation Cardio Palpation: normal PMI Rate: regular rate Rhythm: regular rhythm Heart sounds: S1 normal and S2 normal GI GI: normal to inspection, no hepatosplenomegaly and bowel sounds present Neuro General: alert, oriented x3, awake, CN's II-XI intact bilaterally and moves all extremities Skin Skin: no rashes or lesions noted Extremities Pulses: Normal: Right Femoral Pulse, Left Femoral Pulse, Right Dorsalis Pedis Pulse, Left Dorsalis Pedis Pulse, Right Posterior Tibial Pulse, Left Posterior Tibial Pulse, Right Radial Pulse, Left Radial Pulse Lower Extremity Edema: None: Bilateral Psych Psychological: normal affect Assessment AND Plan 1. Atherosclerosis of [place] coronary artery of [place] heart without angina pectoris I25.10 Plan 1. Coronary artery disease: No exertional anginal symptoms at this time. No indication for any additional testing. Patient is quite active and has had no change whatsoever. I have encouraged him to continue taking his baby aspirin, and finasteride. Orders Orders: 2. Pure hypercholesterolemia E78.00 Plan 2. Hypercholesterolemia: His LDL and HDL cholesterol are at goal, and we will repeat his cholesterol profile every 6 months. Continue Lipitor per 3. Atrial fibrillation I48.91 Plan 3. Atrial fibrillation: The patient is currently in normal sinus rhythm by physical exam. No indication for any additional testing. No indication for anticoagulation therapy. 4. Return office in 6 months. This note was generated using a voice recognition system and there may be incorrect words, spelling or punctuation that were not noted when reviewing the office note prior to saving. Plan Detail Other Orders Orders: Other Medications New: Discontinued: lorazepam Discontinued Reason: Pt no longer t1 mg PO DAILY PRN PRN Anxiety Tiffany montalvo Follow Up +6M (Villalobos) Coding Level of Care Code Off vis,est,level 3 Diagnoses Atherosclerosis of [place] coronary artery of [place] heart without angina pectoris I25.10 [place] vs. transplanted heart: [place] heart Pure hypercholesterolemia E78.00 Hyperlipidemia type: pure hypercholesterolemia Atrial fibrillation I48.91 Coding Level of Care Code Off vis,est,level 3 Diagnoses Atherosclerosis of [place] coronary artery of [place] heart without angina pectoris I25.10 [place] vs. transplanted heart: [place] heart Pure hypercholesterolemia E78.00 Hyperlipidemia type: pure hypercholesterolemia Atrial fibrillation I48.91 12/03/17 1403 <Electronically signed by Heriberto Villalobos MD> Date Heriberto Villalobos MD Cosigner Signature: Date (if applicable) CC: Misael Woo III, MD LIVER PROFILE Collected: 06/06/2017 Status: F Source: NORM 10:36 AM [facility] REPOSITORY Order Comment: Order Date: 12/07/16 Order Info: [id number] - *Hepatic Function Panel Order Info: [id number] - *Lipid Profile CC PCP Comments: 12 hours fasting, may have water. TYPE CODE TESTS RESULT OUT OF RANGE REFERENCE UNITS LAB L501.1500 6.4-8.2 g/dL Normal T PROT 7.2 LAB L501.1800 3.2-5.0 g/dL Normal ALB 3.5 LAB L501.1950 2.2-4.2 g/dL Normal GLOB 3.7 LAB L501.4100 15-37 U/L Normal AST 22 LAB L501.4305 45-117 U/L Normal ALK P 110 LAB L501.4405 16-61 U/L Low ALT 12 Result Comment: Please note revised ALT reference range effective 2017. LAB L501.4600 0.20-1.00 mg/dL Normal T BILI 0.60 LAB L501.4700 0.00-0.30 mg/dL Normal D BILI 0.14 Performed By: #### L500.3400 #### [facility] [address] [place], [place], [id number] LIPID PROFILE Collected: 06/06/2017 Status: F Source: NORM 10:36 AM [facility] REPOSITORY Order Comment: Order Date: 12/07/16 Order Info: [id number] - *Hepatic Function Panel Order Info: [id number] - *Lipid Profile CC PCP Comments: 12 hours fasting, may have water. TYPE CODE TESTS RESULT OUT OF RANGE REFERENCE UNITS LAB L501.4900 200 mg/dL Normal CHOL 130 Result Comment: <200 mg/dL Desirable 200-240 mg/dL Borderline >240 mg/dL High Risk LAB L501.5000 mg/dL Normal TRIG 79 Result Comment: The drugs N-Acetylcysteine and Metamizole may falsely depress this assay. Serum Triglycerides Reference Interval Normal <150 mg/dL Borderline high 150 - 199 mg/dL High 200 - 499 mg/dL Very High > or = 500 mg/dL LAB L501.6400 mg/dL Normal HDL 49 Result Comment: The drugs N-Acetylcysteine and Metamizole may falsely depress this assay. Reference Range HDL <40 mg/dL Low HDL Cholesterol HDL >or= 60 mg/dL High HDL Cholesterol LAB L501.6500 0-130 mg/dL Normal LDL 65 LAB L501.6600 5-40 mg/dL Normal VLDL 16 Performed By: #### L500.4100 #### [facility] [address] [place], [address] CARDIOLOGY VISIT Observed: 06/05/2017 Status: F Source: [facility] REPORT 11:35 AM [facility] REPOSITORY [facility] [address] [place] [address] OFFICE VISIT Date of Service: 06/03/17 MR#: [id number] Acct: [id number] Name: JESSI LOPEZ Rep #: [id number] : 1950 Provider: Tricia Palomo Age/Sex: 67/M Location: [facility] Status: Signed [facility] HPI Details: JESSI LOPEZ, is a 67 M who presents to the office today for a cardiovascular follow-up. He has a history of coronary artery disease with angioplasty and stenting to his LAD and circumflex in 2009, and stenting to his RCA in 2013. He also has a history of hypertension and hyperlipidemia. From a cardiac standpoint, patient is doing well. He does not have any chest discomfort/heaviness/tightness. His exercise tolerance is stable for his age. He does not have any worsening symptoms of shortness of breath. He denies any PND. He does not have any orthopnea. He does not have any symptoms of congestive heart failure. He does not have any palpitations that he is aware of. He does not have any lightheadedness or dizziness. He does not have any near-syncope or syncope. He does not have any lower extremity edema. He does not have any symptoms of claudication. Intake Vital Signs06/03/17 Height 5 ft 9 in 06/03/17 Weight: 215 lb 06/03/17 Body Mass Index (BMI) 31.7 06/03/17 Blood Pressure 140/72 06/03/17 Blood Pressure Location Lt brachial Intake Visit Reasons: 6 M Equity Analyst Required: No Accompanied by: None Is patient in pain?: No Allergies acetaminophen [From Percocet] Allergy (Verified 06/03/17 10:58) Unknown duloxetine HCl [From Cymbalta] Allergy (Verified 06/03/17 10:58) Unknown oxycodone HCl [From Percocet] Allergy (Verified 06/03/17 10:58) Unknown venlafaxine HCl [From Effexor] Allergy (Verified 06/03/17 10:58) Unknown aricept Adverse Reaction (Intermediate, Uncoded 06/03/17 10:58) GI upset Medications Aspirin 325 mg PO DAILY@0800 10/01/13 [History Confirmed 06/03/17] Atorvastatin Calcium [Lipitor] 80 mg PO QHS 10/01/13 [History Confirmed 06/03/17] Carbidopa/Levodopa [Sinemet Cr 25-100 Tablet] 1 ea PO TID 10/01/13 [History Confirmed 06/03/17] Cyanocobalamin [Vitamin B12] 500 mcg PO DAILY@0800 10/01/13 [History Confirmed 06/03/17] Doxazosin Mesylate [Cardura] 4 mg PO QHS 10/01/13 [History Confirmed 06/03/17] Finasteride [Proscar] 5 mg PO DAILY 10/01/13 [History Confirmed 06/03/17] Fluoxetine [Prozac] 40 mg PO DAILY 10/01/13 [History Confirmed 06/03/17] Lorazepam [Ativan] 1 mg PO DAILY PRN PRN 10/01/13 [History Confirmed 06/03/17] Nitroglycerin [Nitrostat] 0.4 mg SUBLINGUAL Q5M PRN 10/01/13 [History Confirmed 06/03/17] Omeprazole [Prilosec] 20 mg PO DAILY 10/01/13 [History Confirmed 06/03/17] Pyridoxine HCl [Vitamin B6] 200 mg PO DAILY 10/01/13 [History Confirmed 06/03/17] Ejection fraction %: 60 to 64 PFSH 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) Hyperlipidemia (Chronic) Atherosclerotic heart disease of [place] coronary artery without angina pectoris (Chronic) Atrial fibrillation (Chronic) Family history of premature coronary heart disease (Chronic) Surgical History History of percutaneous transluminal coronary angioplasty (Chronic) Family History Father Myocardial infarction Heart disease Mother Cancer Brother Myocardial infarction Sister Cancer Social History Smoking Status: Never smoker alcohol intake: never substance use type: does not use caffeine: Yes Type: carbonated beverages what type of physical activity do you participate in: walking frequency: 3-4 times per week duration: 15-30 minutes/day seatbelt use: always do you feel safe at home: Yes ROS Const Const: Negative for weakness, fatigue, fever(s) or headache(s) Eyes Eyes: Negative for blind spots, loss of peripheral vision or transient loss of vision ENT ENT: Negative for headache(s), Negative for dizziness, Negative for tinnitus, Negative for Nosebleed/epistaxis Cardio Chest Pain: No Palpitations: Positive for No Edema: None Muscle aches with walking: None Resp Respiratory: Negative for SOB with activity, SOB at rest or SOB orthopnea\SOB lying down GI GI: Negative nausea, vomiting, heartburn or vomiting blood/hematemesis : Negative for hematuria Musc Musc: Negative for muscle aches/ myalgia Neuro Neuro: Negative for weakness, Negative for headache(s), Negative for dizziness, Negative for near syncope, Negative for syncope, Negative for lightheadedness Jose Hematologic/Lymphatic: Negative for easy bleeding Endo Endo: Negative for fatigue Cardiology Exam Const Appearance: cooperative, no acute distress and well developed Orientation: alert, awake and oriented x3 Head Head: normocephalic and atraumatic Mouth: moist mucous membranes Eyes General: appearance normal, both eyes and all related structures Conjunctivae: conjunctivae normal Pupils: PERRL EOM: EOM intact bilaterally Neck Neck: normal visual inspection, no lymphadenopathy and no JVD Carotids: Negative bruit Neck Mass: Negative Neck mass Chest Chest inspection: normal inspection of the chest and symmetric chest movement Auscultation: Bilateral: Clear to Auscultation Cardio Palpation: normal PMI Rate: regular rate Rhythm: regular rhythm Heart sounds: S1 normal and S2 normal; negative rub, gallop or murmur GI GI: normal to inspection, soft, no hepatosplenomegaly and bowel sounds present; negative tender Neuro General: alert, awake, oriented x3, CN's II-XI intact bilaterally and moves all extremities Extremities Pulses: Normal: Right Posterior Tibial Pulse, Left Posterior Tibial Pulse, Right Radial Pulse, Left Radial Pulse Lower Extremity Edema: None: Bilateral Psych Psychological: normal affect Supplemental Info Lipid profile from November 2016 demonstrates total cholesterol of 139, HDL 55, LDL 68. Assessment AND Plan 1. Atherosclerosis of [place] coronary artery of [place] heart without angina pectoris I25.10 Plan - RALF Holliday Stable, from a cardiac standpoint patient does not have any symptoms of angina. We recommend that they continue with current aggressive medical management and risk factor modification. 2. Pure hypercholesterolemia E78.00; E78.0 Plan - RALF Holliday Recent lipid profile demonstrates total cholesterol 139, HDL 55, LDL 60. Lipids are adequately controlled. Will not make any adjustments. We will continue to monitor. Plan Detail Additional Comments - RALF Holliday The above patient was discussed with Dr. Melvin Bhatti's absence, he agrees with plan of care. Thank you for allowing us to participate in patient's plan of care, if you have any questions please do not hesitate to call. This note was generated using a voice recognition system and there may be incorrect words, spelling or punctuation errors that were not noted when reviewing the office note prior to saving. Follow Up 6 Months (DJN: pt wants to switch to Eric) Coding Level of Care Code Off vis,est,level 3 Diagnoses Atherosclerosis of [place] coronary artery of [place] heart without angina pectoris I25.10 [place] vs. transplanted heart: [place] heart Pure hypercholesterolemia E78.00; E78.0 Hyperlipidemia type: pure hypercholesterolemia Coding Level of Care Code Off vis,est,level 3 Diagnoses Atherosclerosis of [place] coronary artery of [place] heart without angina pectoris I25.10 [place] vs. transplanted heart: [place] heart Pure hypercholesterolemia E78.00; E78.0 Hyperlipidemia type: pure hypercholesterolemia 06/04/17 0812 <Electronically signed by Tricia ARAMBULA> Date Tricia ARAMBULA 06/05/17 1135<Electronically signed by Osiel Charles MD> Cosigner Signature: Date (if applicable) Osiel Charles MD CC: ALLERGIES ALLERGIES DATE TYPE / CODE NAME / CODE REACTION SEVERITY SOURCE 04/09/2018 Drug oxycodone Itching [place] [facility]/475011576( HCl/[id number](R [facility]OM[facility]) XNORM) Hospital Repository 04/09/2018 Drug venlafaxine Mood change [place] [facility] Allergy/122739840( HCl/[id number](R [facility]) XNORM) Hospital Repository 04/09/2018 Drug duloxetine Mood change [place] [facility] Allergy/083879649( HCl/[id number](R [facility]) XNORM) Hospital Repository 03/24/2018 Miscellaneous aricept gi upset [place] Allergy/333462403( Community SNOM[facility]) Hospital Repository 06/03/2017 Drug acetaminophen/F0 Unknown Unknown [place] Allergy/242619773( 91607072(RXNORM) [facility] SN[facility]) Hospital Repository 03/29/2010 [id number] [place] Repository 08/22/2006 DRUG/[id number](SNO OXYCODONE-ACETAM SWELLING [facility]) INOPHEN Clinic Main [place] Repository 12/21/2004 DRUG [facility]ULOXETINE [id number] Main SN[facility]) [place] Repository 12/21/2004 DRUG VENLAFAXINE [facility][id number]( [facility] Main SNOM[facility]) [place] Repository ENCOUNTERS ENCOUNTERS ADMIT/DISCHARGE ACCOUNT ADMITTING ENCOUNTER LOCATION SOURCE NUMBER CLASS 04/09/2018/04/09/20 [id number] Ambulatory [facility] Pending Sale To [facility] Repository 03/24/2018 [id number] [place], Ambulatory [facility]:[place] Tavarez MS.Formerly [facility] Repository 03/24/2018/03/26/20 [id number] [facility] ing:ICURoom: Repository [id number]: 1 03/24/2018 [id number] Sementi, Ambulatory BMSBuilding:Teodora Tavarez MS.Formerly [facility] Repository 03/24/2018 [id number] Sementi, Ambulatory BMSBuilding:Teodora Tavarez MS.CF.[facility] Repository 03/24/2018 [id number] Sementi, Ambulatory BMSBuilding:Teodora Tavarez MS.Formerly [facility] Repository 03/24/2018 [id number] Ambulatory BMSBuilding:W [facility] Repository 02/11/2018/02/13/20 [id number] Ambulatory [address] Repository 12/21/2017/12/25/19 [id number] Ambulatory [address] Repository 12/21/2017 [id number] Ambulatory [facility] ing:LAB Repository 12/03/2017/12/04/19 [id number] Ambulatory BMSBuilding:B Norm 18 MS.[facility] Repository 06/06/2017 [id number] Ambulatory [facility] ing:LAB Repository 06/03/2017/06/03/19 [id number] Ambulatory BMSBuilding:Teodora Zheng 18 MS.[facility] Repository 05/31/2017 [id number] Ambulatory BMSBuilding:Teodora Zheng MS.[facility] Repository PAYERS PAYERS ENCOUNTER GUARANTOR PAYER SUBSCRIBER SOURCE 04/09/2018 JESSI [id number] Primary BERENICE [facility] Insurance:MEDICAL WEYERDOB: [facility] [id number] Hospital [address]Wnv: 330) Number: Repository [phone] (TB) [id number] Date:1008-79-95ZR [address] [place] [id number]: 04/09/2018 Secondary NOT GIVENUNK [place] Insurance:SELF PAY [facility] Number: Effective Repository Date:2018-04-09 03/24/2018 JESSI [id number] Primary BERENICE [place] Insurance:MEDICAL WEYERDOB: [facility] [id number] Hospital [address]Nap: (330) Number: Repository [phone] () [id number] Date:9293-41-93ST [place] [id number]: 03/24/2018 Secondary NOT GIVENUNK [place] Insurance:SELF PAY [facility] Number: Effective Repository Date:2018-03-24 03/24/2018 JESSI [id number] Primary BERENICE Zheng [place] Insurance:MEDICAL WEYERDOB: [facility] [id number] Hospital [address]Xdm: (330) Number: Repository [phone] () [id number] Date:0114-24-61[place] [id number]: 03/24/2018 Secondary NOT GIVENUNK Norm Insurance:SELF PAY [facility] Number: Effective Repository Date:2018-03-24 03/24/2018 JESSI [id number] Primary BERENICE Zheng HIALEAH Insurance:MEDICAL WEYERDOB: [facility] [id number] Hospital [address]Odo: (330) Number: Repository [phone] () [id number] Date:1758-37-45YV[address] [address]HW: 03/24/2018 Secondary NOT GIVENUNK Norm Insurance:SELF PAY [facility] Number: Effective Repository Date:2018-03-24 03/24/2018 JESSI [id number] Primary BERENICE Zheng HIALEAH Insurance:MEDICAL WEYERDOB: [facility] [id number] Hospital [address]Tsf: (330) Number: Repository [phone] () [id number] Date:3299-50-33GQ [address] [place] [phone]: 03/24/2018 Secondary NOT GIVENUNK [place] Insurance:SELF PAY [facility] Number: Effective Repository Date:2018-03-24 03/24/2018 JESSI [id number] [facility]:MEDICAL WEYERDOB: [facility] [id number] Hospital [address]Kmf: (330) Number: Repository [phone] () [id number] Date:2870-02-46VP [address] [phone]: 03/24/2018 Secondary NOT GIVENUNK Norm Insurance:SELF PAY [facility] Number: Effective Repository Date:2018-03-24 03/24/2018 JESSI [id number] [facility] Insurance:MEDICAL WEYERDOB: [facility] [id number] Hospital [address]Oyi: (330) Number: Repository [phone] () [id number] Date:4455-23-79XN [address] [address]DQ: 03/24/2018 Secondary NOT GIVENUNK [place] Insurance:SELF PAY [facility] Number: Effective Repository Date:2018-03-24 12/21/2017 JESSI [id number] Primary [facility]ENICE [facility] Insurance:MEDICAL WEYERDOB: [facility] [id number] Hospital [address]Cdt: (330) Number: Repository [phone] () [id number] Date:0231-22-46MN [address] [phone]: 12/21/2017 Secondary NOT GIVENUNK Norm Insurance:SELF PAY [facility] Number: Effective Repository Date:2017-12-21 12/03/2017 JESSI MONAE1 Primary BERENICE J [facility] Insurance:MEDICAL WEYERDOB: [facility] [id number] Hospital [address]Zir: (330) Number: Repository [phone] () [id number] Date:2300-20-94AC [address] [place] [phone]: 12/03/2017 Secondary NOT GIVENUNK Norm Insurance:SELF PAY [facility] Number: Effective Repository Date:2017-08-01 06/06/2017 JESSI [id number] Primary BERENICE [facility] Insurance:MEDICAL WEYERDOB: [facility] [id number] Hospital [address]Dyr: (330) Number: Repository [phone] () [id number] Date:3232-98-66EU [address] [address]GQ: 06/06/2017 Secondary NOT GIVENUNK Norm Insurance:SELF PAY [facility] Number: Effective Repository Date:2017-06-06 06/03/2017 JESSI [id number] Primary BERENICE [facility] Insurance:MEDICAL WEYERDOB: [facility] [id number] Hospital [address]Lgw: (330) Number: Repository [phone] () [id number] Date:3910-48-09SX [address] [place] [phone]: 06/03/2017 Secondary NOT GIVENUNK Norm Insurance:SELF PAY [facility] Number: Effective Repository Date:2017-03-20 05/31/2017 Jessi [id number] Primary BERENICE Crawford [facility] Insurance:MEDICAL WEYERDOB: [facility] [id number] Hospital [address]Oxt: (330) Number: Repository [phone] () [id number] Date:0507-42-87LY [address] [place] [phone]: 05/31/2017 Secondary NOT GIVENUNK Norm Insurance:SELF PAY [facility] Number: Effective Repository Date:2017-05-31
== END 2018-03-26 09:53 | disposition home or self-care (01) | DRG 247 ==
LOC: ED 17:27 → PCU 19:07 → ICU 03-25 10:06
PROVIDERS: Internal Medicine Cardiovascular Disease; Admitting Provider Internal Medicine; Emergency Provider Emergency Medicine; Family Provider Family Medicine; PCP Family Medicine
DX: I21.4 Non-ST elevation (NSTEMI) myocardial infarction (principal); T82.855A Stenosis of coronary artery stent, initial encounter; T82.518A Breakdown (mechanical) of other cardiac and vascular devices and implants, initial encounter; E78.5 Hyperlipidemia, unspecified; I25.110 Atherosclerotic heart disease of native coronary artery with unstable angina pectoris; I48.0 Paroxysmal atrial fibrillation; E66.3 Overweight; G20 Parkinson's disease; N40.0 Benign prostatic hyperplasia without lower urinary tract symptoms; Z98.1 Arthrodesis status; Z79.899 Other long term (current) drug therapy; Z95.5 Presence of coronary angioplasty implant and graft; Z68.29 Body mass index [BMI] 29.0-29.9, adult; Z82.49 Family history of ischemic heart disease and other diseases of the circulatory system; Z79.82 Long term (current) use of aspirin
CPT/HCPCS: 36415; 71045; 80048; 80053; 80061; 81002; 83735; 84484; 85025; 85027; 85347; 85610; 85730; 92928; 93005; 93458; 99283; J7030; Q9967; A4216; C1725; C1769; C1874; C1887; C1894; C9600

== ENCOUNTER → 2018-06-21 09:08 | Outpatient (CLI) | payer OTHER, SELFPAY ==
[2018-06-16 11:38] VITALS: BMI 31.6
[2018-06-21 10:01] LABS: AST(SGOT) 18 U/L (15-37); Alanine Aminotransfer ALT/SGPT 27 U/L (16-61); Albumin, Serum 3.5 g/dL (3.2-5.0); Alkaline Phosphatase 98 U/L (45-117); Bilirubin, Direct 0.15 mg/dL (0.00-0.30); Cholesterol 137 mg/dL (200); Globulin 3.3 g/dL (2.2-4.2); High Density Lipoprotein 52 mg/dL; Protein, Total 6.8 g/dL (6.4-8.2); Triglycerides 80 mg/dL; Very Low Density Lipoprotein 16 mg/dL (5-40)
== END ==
PROVIDERS: Family Provider Family Medicine; PCP Family Medicine; Referring Provider Internal Medicine Cardiovascular Disease; Visit Provider Internal Medicine Cardiovascular Disease
DX: E78.5 Hyperlipidemia, unspecified (principal)
CPT/HCPCS: 36415; 80061; 80076

== ENCOUNTER → 2018-12-30 15:03 | Outpatient (CLI) | payer MEDICARE, OTHER, SELFPAY ==
[2018-06-16 11:38] VITALS: BMI 31.6
[2018-12-30 17:23] LABS: AST(SGOT) 22 U/L (15-37); Alanine Aminotransfer ALT/SGPT 23 U/L (16-61); Albumin, Serum 3.6 g/dL (3.2-5.0); Alkaline Phosphatase 82 U/L (45-117); Cholesterol 126 mg/dL (200); High Density Lipoprotein 50 mg/dL; Protein, Total 6.6 g/dL (6.4-8.2); Triglycerides 78 mg/dL; Very Low Density Lipoprotein 16 mg/dL (5-40)
== END ==
PROVIDERS: Family Provider Family Medicine; PCP Family Medicine; Referring Provider Internal Medicine Cardiovascular Disease; Visit Provider Internal Medicine Cardiovascular Disease
DX: E78.5 Hyperlipidemia, unspecified (principal)
CPT/HCPCS: 36415; 80061; 80076

== ENCOUNTER → 2019-01-16 10:42 | Outpatient (CLI) | payer MEDICARE, OTHER, SELFPAY ==
[2019-01-01 10:40] VITALS: BMI 30.5
--- NOTE | 2019-01-16 10:45 | ECHOD_ITS ---
Reason For Study: CAD/ASHD Procedure This was a 2D Doppler, Color Flow transthoracic echocardiogram. Exam performed in department. Left Ventricle Mild concentric left ventricular hypertrophy. The estimated ejection fraction is 65 %. Stage 1 diastolic dysfunction. No regional wall motion abnormalities noted. Right Ventricle Mildly dilated right ventricle. Normal systolic function. Atria Normal left atrium. Normal right atrium. Normal atrial septum. Mitral Valve The mitral valve is structurally normal. No prolapse or stenosis seen. Trivial mitral valve insufficiency. Tricuspid Valve Normal tricuspid valve. Trivial tricuspid valve insufficiency. Right ventricular systolic pressure estimated to be 29 mmHg. Aortic Valve Trisinus/trileaflet aortic valve. Mild diffuse aortic valve thickening. There is no aortic stenosis. Pulmonic Valve Normal pulmonic valve. Trivial pulmonic valve insufficiency. Great Vessels Normal aortic root. Normal arch. Normal inferior vena cava. Inferior vena cava collapse with sniff. Pericardium/Pleural No pericardial effusion. MMode/2D Measurements & Calculations LVIDd: 4.9 cm IVSd: 1.4 cm Ao root diam: 3.3 cm LVIDs: 3.2 cm LVPWd: 1.3 cm RVDd: 3.7 cm FS: 35.3 % LAV(MOD-bp): 59.2 ml LA A4 area: 15.9 cm2 LA dimension(2D): 3.8 cm LAV(MOD-bp) Indexed: 28.3 ml/m2 LAV(MOD-sp2): 56.9 ml LAV(MOD-sp4): 45.1 ml RA A4 area: 14.9 cm2 Time Measurements MV dec time: 0.22 sec Doppler Measurements & Calculations MV E max gume: 83.1 cm/sec Lat Peak E' Gume: 7.0 cm/sec Med Peak E' Gume: 5.1 cm/sec MV A max gume: 77.5 cm/sec E/E' lat: 11.9 E/E' med: 16.3 MV E/A: 1.1 Ao V2 max: 140.0 cm/sec LV V1 max: 92.5 cm/sec PA V2 max: 110.1 cm/sec Ao max P.8 mmHg LV V1 max P.4 mmHg TR max gume: 242.5 cm/sec TR max P.5 mmHg Interpretation Summary Mild concentric left ventricular hypertrophy. The estimated ejection fraction is 65 %. Stage 1 diastolic dysfunction. Mildly dilated right ventricle. Trivial mitral valve insufficiency. Trivial tricuspid valve insufficiency. Right ventricular systolic pressure estimated to be 29 mmHg. Compared to echo report dated 04/22/2009, no appreciable changes noted. Ordering Physician: Heriberto Villalobos Referring Physician: Misael Woo Performed By: Jayne Thomas, FRANKLYN, RVT
== END ==
PROVIDERS: Family Provider Family Medicine; PCP Family Medicine; Referring Provider Internal Medicine Cardiovascular Disease; Visit Provider Internal Medicine Cardiovascular Disease
DX: I25.2 Old myocardial infarction (principal)
CPT/HCPCS: 93306

== ENCOUNTER → 2019-01-26 09:20 | Outpatient (CLI) | payer MEDICARE, OTHER, SELFPAY ==
[2019-01-01 10:40] VITALS: BMI 30.5
--- NOTE | 2019-01-26 09:21 | STEWCON_ITS ---
Reason For Study: CAD Stress Results Protocol: Gavino Protocol Maximum Predicted HR: 154 bpm Target HR: 131 bpm % Maximum Predicted HR: 95 % DurationHeart Rate Stage (mm:ss) (bpm) BP Comment Baseline 48 122/80No Chest Pain; 3 ML Diluted Definity Given Gavino Protocol Stage I 3:00 77 164/74No Chest Pain Gavino Protocol Stage II 3:00 88 158/76No Chest Pain Gavino Protocol Stage III 3:00 112 164/76No Chest Pain Gavino Protocol Stage IV 3:00 146 178/64No Chest Pain Recovery 81 142/50No Chest Pain Stress Duration: 12:00 mm:ss Maximum Stress HR: 146 bpm METS: 13 Baseline Echocardiogram Findings The estimated ejection fraction is 65 %. Stress Echo Wall motion Data Resting WM Intermediate WM Stress WM Resting Wall Motion Wall Motion Stress No regional wall motion No regional wall motion abnormalities noted. abnormalities noted. EKG Data The baseline ECG displays normal sinus rhythm. The patient exercised according to the regular Gavino protocol for a total duration of 12:00. The maximum heart rate attained was 148 beats per minute. This was 96% of maximum predicted heart rate. The patient exercised into stage 5 of the Gavino protocol. During stress, there were no ST or T wave changes noted to suggest ischemia. No clinical angina was noted. Interpretation Summary The estimated ejection fraction is 65 %. Normal, adequate, treadmill echocardiogram. Negative for ischemia by EKG and echocardiographic criteria. No anginal symptoms noted. Rare PVC noted. Appropriate blood pressure response to exercise. Above average exercise capacity for age. Test terminated due to target heart rate achieved. Final LVEF is 75%. Decreased sensitivity due to poor echo windows requiring Definity agent. No complications. The study was technically difficult. Contrast injection was performed. Ordering Physician: Heriberto Villalobos Referring Physician: iMsael Woo III Performed By: [place]a [place], FRANKLYN, RVT
== END ==
PROVIDERS: Family Provider Family Medicine; PCP Family Medicine; Referring Provider Internal Medicine Cardiovascular Disease; Visit Provider Internal Medicine Cardiovascular Disease
DX: I25.10 Atherosclerotic heart disease of native coronary artery without angina pectoris (principal); I25.2 Old myocardial infarction; Z95.5 Presence of coronary angioplasty implant and graft; E78.00 Pure hypercholesterolemia, unspecified; I48.91 Unspecified atrial fibrillation; Z82.49 Family history of ischemic heart disease and other diseases of the circulatory system
CPT/HCPCS: 93017; 93350; Q9957; A4216; C8928

== ENCOUNTER → 2019-07-17 10:13 | Outpatient (CLI) | payer MEDICARE, OTHER, SELFPAY ==
[2019-07-16 10:20] VITALS: BMI 30.5
[2019-07-17 11:33] LABS: AST(SGOT) 26 U/L (15-37); Alanine Aminotransfer ALT/SGPT 11 U/L (16-61); Albumin, Serum 3.8 g/dL (3.2-5.0); Alkaline Phosphatase 98 U/L (45-117); Bilirubin, Direct 0.16 mg/dL (0.00-0.30); Cholesterol 132 mg/dL (200); High Density Lipoprotein 53 mg/dL; Protein, Total 6.8 g/dL (6.4-8.2); Triglycerides 53 mg/dL; Very Low Density Lipoprotein 11 mg/dL (5-40)
== END ==
PROVIDERS: PCP Family Medicine; Referring Provider Internal Medicine Cardiovascular Disease; Visit Provider Internal Medicine Cardiovascular Disease
DX: I25.10 Atherosclerotic heart disease of native coronary artery without angina pectoris (principal); E78.00 Pure hypercholesterolemia, unspecified
CPT/HCPCS: 36415; 80061; 80076

== ENCOUNTER → 2020-11-22 11:12 | Outpatient (CLI) | payer MEDICARE, OTHER, SELFPAY ==
[2019-07-16 10:20] VITALS: BMI 30.5
--- NOTE | 2020-11-22 11:30 | MRI_ITS ---
EXAM: MR HEAD WITHOUT AND WITH INTRAVENOUS CONTRAST, INTERNAL AUDITORY CANAL PROTOCOL : 1950 CLINICAL INDICATION: Asymmetric hearing loss left ear, tinnitus TECHNIQUE: Multiplanar and multisequence MR images of the internal auditory canal were obtained without and with intravenous contrast. This report was created using Yappe report generation technology. CONTRAST: 19ml IV Dotarem COMPARISON: None. FINDINGS: CRANIAL NERVES: Unremarkable. No mass. No abnormal enhancement. COCHLEA AND SEMICIRCULAR CANALS: Unremarkable. CEREBELLOPONTINE ANGLES: Unremarkable. No mass. BRAIN AND EXTRA-AXIAL SPACES: Unremarkable as visualized. No intra- or extra-axial hemorrhage. No intracranial mass or mass effect. There is preservation of the escalona/white matter interface. Posterior fossa structures are unremarkable. Ventricles are appropriate for age. No hydrocephalus. Basal cisterns are patent. BONES/JOINTS: Unremarkable. No discrete lytic or blastic abnormalities. SINUSES: Unremarkable as visualized. Clear. MASTOID AIR CELLS: Unremarkable as visualized. Clear. ORBITS: Unremarkable as visualized. Both globes, extraocular muscles, optic nerves and retrobulbar fat appear unremarkable. MRI/Brain W/WO Contrast IMPRESSION: Normal MRI IACs/temporal bones. at 1626 Reported and signed by: Nicola Colon MD Electronically Signed: Nicola Colon MD at 16:25 EDT Tel , Service support ,
[2020-11-22 11:36] LABS: CREATININE FINGERSTICK 1.1 mg/dL (0.70-1.30); EGFR FINGERSTICK > 60.0000 mL/min (>60)
== END ==
PROVIDERS: PCP Family Medicine; Referring Provider Otolaryngology; Visit Provider Otolaryngology
DX: H91.8X9 Other specified hearing loss, unspecified ear (principal); R26.9 Unspecified abnormalities of gait and mobility
CPT/HCPCS: 70553; A9575

== ENCOUNTER 2021-02-26 12:59 | Observation (INO) | payer MEDICARE, OTHER, SELFPAY ==
[2021-02-26] VITALS (8 sets, daily range): BP systolic 142–171; BP diastolic 71–89; PULSE 51–82; RESP 12–18; TEMP 36.3–37.1; O2SAT 94–97; BMI 29.9; BMI 29.2
--- NOTE | 2021-02-26 13:12 | RAD_ITS ---
INDICATION: chest pain EXAMINATION/TECHNIQUE: X-RAY - XR Chest 1 View COMPARISON: 03/24/2018 FINDINGS: LIFE-SUPPORT AND LINES: 1. None HEART AND VESSELS: The cardiac silhouette, pulmonary vasculature have normal appearance. No evidence of congestive failure. LUNGS AND PLEURAL SPACES: Lungs are clear. No focal infiltrate, consolidation or effusions. No evidence of pneumothorax. MEDIASTINUM AND HILAR REGIONS: No masses adenopathy noted. No areas of calcification. Visualized upper airway is normal in position. BONY ELEMENTS: No acute bony changes noted. Redemonstration of postoperative changes in lower cervical spine. RAD/Chest 1 View (Portable) IMPRESSION: 1. No evidence of acute cardiopulmonary process Electronically Signed: Sheng Goodwin MD at 14:17 EST Tel , Service support ,
--- NOTE | 2021-02-26 13:12 | EKG12_ITS ---
Test Reason : CP Blood Pressure : / mmHG Vent. Rate : 064 BPM Atrial Rate : 064 BPM P-R Int : 162 ms QRS Dur : 094 ms QT Int : 398 ms P-R-T Axes : 055 -43 038 degrees QTc Int : 410 ms Normal sinus rhythm Left axis deviation Abnormal ECG Confirmed by RADHA AMIN, DAVID ([id number]), continuity editor RAFAEL HERNANDEZ ([id number]) on 02/27/2021 11:06:24 AM Referred By: BURT/KELLI Confirmed By:DAVID GARCIA MD
--- NOTE | 2021-02-26 13:13 | EDS_ITS ---
HPI History of Present Illness Chief Complaint: Chest Pain Informant: patient Narrative Narrative: Patient is a 68 M who presents to the emergency department today for chest pain.. He has a history of coronary artery disease with angioplasty and stenting to his LAD and circumflex in 2008, and stenting to his RCA in 2013 and in 2018. He also has a history of hypertension and hyperlipidemia. He states he has been extremely active all week and did not have any discomfort with exertion. Today he developed a pain on the left chest that is similar to the pain he had with his prior coronary artery disease. And lasted about an hour and a half or so until he got here when it resolved. He currently sees Dr. Tran for cardiology at [facility]. He has not required any further interventions since 2018 when he had in-stent stenosis/fractured strut of stent involving the right coronary artery. [facility] Medical History (Updated 02/26/21 @ 13:[address] 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 NSTEMI (non-ST elevated myocardial infarction) Old myocardial infarction Parkinson disease Pure hypercholesterolemia Stented coronary artery (03/25/18) Unstable angina Home Medications carbidopa-levodopa 1 ea PO TID 10/01/13 [History Last Taken 03/24/18] cyanocobalamin (vitamin B-12) 500 mcg PO DAILY@0800 10/01/13 [History Last Taken 03/24/18] doxazosin 4 mg PO QHS 10/01/13 [History Last Taken 03/23/18] finasteride 5 mg PO DAILY 10/01/13 [History Last Taken 03/24/18] omeprazole 20 mg PO DAILY 10/01/13 [History Last Taken 03/24/18] pyridoxine (vitamin B6) 200 mg PO DAILY 10/01/13 [History Last Taken 03/24/18] aspirin 81 mg PO DAILY@0800 03/24/18 [History Last Taken 03/24/18] fluoxetine 40 mg PO DAILY 03/24/18 [History Last Taken 03/24/18] gabapentin 300 mg capsule 300 mg PO TID PRN 01/01/19 [History Last Taken Unknown] naproxen sodium 220 mg capsule 220 mg PO BID PRN 07/16/19 [History Last Taken Unknown] atorvastatin 80 mg tablet 80 mg PO QHS #90 tab 09/28/20 [Rx Last Taken Unknown] clopidogrel 75 mg tablet 75 mg PO DAILY #90 tab 11/23/20 [Rx Last Taken Unknown] Allergy/AdvReac Type Severity Reaction Status Date / Time oxycodone HCl [From Percocet] Allergy Intermediate Itching Verified 02/26/21 13:02 duloxetine HCl AdvReac Intermediate Mood Change Verified 02/26/21 13:02 [From Cymbalta] venlafaxine HCl AdvReac Intermediate Mood change Verified 02/26/21 13:02 [From Effexor] aricept AdvReac Intermediate GI upset Uncoded 02/26/21 13:02 Family History Father Myocardial infarction Heart disease Mother Cancer Brother Myocardial infarction Sister Cancer Surgical History Presence of coronary angioplasty implant and graft Social History Smoking Status: Never smoker alcohol intake: never substance use type: does not use caffeine: Yes Type: carbonated beverages what type of physical activity do you participate in: walking frequency: 3-4 times per week duration: 15-30 minutes/day seatbelt use: always do you feel safe at home: Yes ROS ROS ED Constitutional Constitutional ED: Denies chills, fever(s) or weight loss Eyes Eyes: Denies change in vision or diplopia ENT ENT ED: Denies ear pain, rhinorrhea or sore throat Cardiovascular Cardiovascular: Reports chest pain; Denies orthopnea, palpitations or racing heartbeat Respiratory/Chest Respiratory/Chest: Denies cough, dyspnea or orthopnea Gastrointestinal Gastrointestinal: Denies abdominal pain, diarrhea, nausea or vomiting Genitourinary Genitourinary ED: Denies dysuria, hematuria or urinary frequency Musculoskeletal Musculoskeletal: Denies arthralgias or myalgias Integumentary Denies abscess or rash Neurologic Neurologic: Denies headache(s) or weakness Psychiatric Psychiatric: Denies anxiety, depression, suicidal ideation or suicidal thoughts Endocrine Endocrinology: Denies polydipsia, polyphagia or polyuria Allergic/Immunologic Allergic/Immunologic ED: Denies mouth swelling, tongue swelling or urticaria EXAM Physical Exam Const Vital Signs: 02/26/21 13:00 02/26/21 13:12 02/26/21 13:15 Temperature 98.1 F Temperature Source Oral Pulse Rate 74 Respiratory Rate 16 Respiratory Effort Normal Blood Pressure 158/89 H Blood Pressure Mean 112 Pulse Ox 94 Oxygen Delivery Method Room Air Room Air 02/26/21 14:00 02/26/21 15:00 Temperature Temperature Source Pulse Rate 55 L 59 L Respiratory Rate 12 15 Respiratory Effort Blood Pressure 143/74 H 142/71 H Blood Pressure Mean 97 94 Pulse Ox 95 97 Oxygen Delivery Method Room Air Room Air Positive well nourished and well developed General Appearance ED: well developed HEENT Reports normocephalic, head/scalp atraumatic, TM's clear and moist mucous membranes Negative for trauma Tympanic Membrane ED: Yes TM's clear Eyes PERRL and EOMs intact bilaterally Neck no lymphadenopathy, supple and no JVD Resp normal respiratory effort and clear to auscultation bilaterally Cardio regular rate, regular rhythm and no murmurs GI normal to inspection, nondistended, normoactive bowel sounds and non-tender Palpation: soft Back/Spine no CVA tenderness and normal ROM Extremity normal to inspection General Extremety ED: Negative for edema General Extremity: Negative for edema Neuro oriented x3 and CN's II-XII intact bilaterally Sensorium / Orientation: alert Motor Exam: strength 5/5 throughout Psych mental status grossly normal Mood & Affect: Negative for depressed or tearful Skin no rashes or lesions noted and no wounds MDM MDM MDM Narrative Medical decision making narrative: My interpretation of the chest x-ray is no acute process. CBC is normal. BMP showed a glucose of 155. Initial troponin high-sensitivity is 9. He is remained in a sinus rhythm on the monitor with no events. He has also remained pain-free. Second troponin was obtained and is 20 which technically is a doubling. I spoke with our custodial maintenance worker Dr. Dhaliwal who a grees with admission. The patient's custodial maintenance worker is at [facility] however due to the current hospital situation and [place] there are no immediately available beds. Patient is comfortable be admitted here for further evaluation. Lab Data Attestation: I reviewed the patient's lab results. Labs: Laboratory Results - last 24 hr 02/26/21 02/26/21 02/26/21 13:05 13:05 14:55 WBC 7.0 RBC 4.60 Hgb 14.4 Hct 40.9 MCV 88.9 MCH 31.3 MCHC 35.2 RDW Std Deviation 38.7 RDW Coeff of Acacia 12.0 Plt Count 233 MPV 9.4 Immature Gran % (Auto) 0.300 Neut % (Auto) 64.6 Lymph % (Auto) 22.9 Amite % (Auto) 8.0 Eos % (Auto) 3.6 Baso % (Auto) 0.6 Absolute Neuts (auto) 4.5 Absolute Lymphs (auto) 1.60 Nucleated RBC % 0 Sodium 139 Potassium 3.5 Chloride 108 H Carbon Dioxide 25.0 Anion Gap 6 BUN 19 H Creatinine 1.09 Estim Creat Clear Calc 62.75 Est GFR (MDRD) Af Amer 86 Est GFR (MDRD) Non-Af 71 BUN/Creatinine Ratio 17.4 Glucose 155 H Calcium 8.9 Troponin I High Sens 9 20 Radiography Diagnostic Testing: Clinical Impression(s) from Imaging Studies Chest X-Ray 02/26/21 13:12 IMPRESSION: 1. No evidence of acute cardiopulmonary process Electronically Signed: Sheng Goodwin MD at 14:17 EST Tel , Service support , EKG Initial EKG: Attestation: I personally reviewed and interpreted this EKG as follows: Comments: Normal sinus rhythm with a ventricular rate of 64 bpm Prior EKG tracings: available for review Prior: Unchanged Discharge Plan Triage Chief Complaint: Chest Pain ED Provider: Heriberto Izaguirre Dx/Rx/DC Orders Clinical Impression: Chest pain Prescriptions: No Action gabapentin 300 mg capsule 300 mg PO TID PRN (Reason: Pain) RF: 0 naproxen sodium [Aleve] 220 mg capsule 220 mg PO BID PRN (Reason: Pain) RF: 0 carbidopa-levodopa 1 EACH tablet extended release 1 ea PO TID RF: 0 cyanocobalamin (vitamin B-12) 500 MCG tablet 500 mcg PO DAILY@0800 RF: 0 pyridoxine (vitamin B6) 50 MG tablet 200 mg PO DAILY RF: 0 omeprazole 20 MG capsule 20 mg PO DAILY RF: 0 doxazosin 4 MG tablet 4 mg PO QHS RF: 0 finasteride 5 MG tablet 5 mg PO DAILY RF: 0 aspirin 81 MG tablet,chewable 81 mg PO DAILY@0800 RF: 0 fluoxetine 20 MG capsule 40 mg PO DAILY RF: 0 atorvastatin 80 mg tablet 80 mg PO QHS Qty: 90 RF: 3 clopidogrel 75 mg tablet 75 mg PO DAILY Qty: 90 RF: 3 Primary Care Provider: Care Physician,No Primary Disposition Disposition: Acute Care Hospital [facility]
[2021-02-26 13:17] LABS: Absolute Neutrophil Count 4.5 X10^3/uL (2.0-7.7); Basophil# 0.04 X10^3/uL; Basophil% 0.6 % (0-1); Eosinophil# 0.25 X10^3/uL; Eosinophils% 3.6 % (0-5); Hematocrit 40.9 % (40-54); Hemoglobin 14.4 g/dL (13.0-16.5); Lymphocyte % 22.9 % (19-41); Mean Corp Hgb Conc 35.2 g/dL (32-36); Mean Corpuscular Hgb 31.3 pg (27.0-32.0); Mean Corpuscular Volume 88.9 fL (80-94); Mean Platelet Vol. 9.4 fl (6.2-12.0); Monocyte# 0.56 X10^3/uL; NRBC Flagged by Analyzer 0 % (0-5); Neutrophil # 4.53 X10^3/uL (2.7-7.7); Neutrophil % 64.6 % (47-70); Platelet Count 233 K/mm3 (150-450); RBC Distribution Width SD 38.7 fl (35.1-43.9)
[2021-02-26 13:32] LABS: Anion Gap 6 (5-15); BUN 19 mg/dL (7-18); BUN/Creat Ratio 17.4 RATIO (10-20); Calcium,Total 8.9 mg/dL (8.5-10.1); Chloride 108 mmol/L (98-107); Creatinine, Serum 1.09 mg/dL (0.70-1.30); EST Glomerular Filtration Rate 71 mL/min (>60); Est Glom Filt Rate - Afr Amer 86 mL/min (>60); Estimated Creatinine Clearance 62.75 ml/min; Glucose 155 mg/dL (74-106); Potassium 3.5 mmol/L (3.5-5.1); Sodium Level 139 mmol/L (136-145); Troponin-I HS 9 pg/mL (3.0-78.0)
[2021-02-26 15:15] LABS: Troponin-I HS 20 pg/mL (3.0-78.0)
--- NOTE | 2021-02-26 16:19 | PCM.HP.STD ---
Documented by User: Jessi ARAMBULA 02/26/21 16:43 HPI - General General Date of Admission: 02/26/21 Date of Service: 02/26/21 Chief Complaint: Chest pain HPI Narrative JESSI JEFFERSON is a 70-year-old male who presents to the ED at [facility] on 02/26/2021 with a chief complaint of chest pain. Patient reports that about noon today he began to experience excruciating chest pain with exertion, that he rated at a 8 out of 10. Patient reports that since reporting to the ED, his chest pain has decreased and he is now not experiencing any chest pain. Patient reported that pain initially got worse with exertion, however has been steadily decreasing. Patient denied any alleviating measures. Past medical history is significant for coronary artery disease with angioplasty and stenting to his LAD and circumflex in 2008 and stenting to his RCA in 2013/2017. Patient has followed with Dr. Bhatti in the past but currently sees Dr. Tran at [facility] for his cardiovascular care. Past family medical history is significant for cardiovascular disease. Vital signs in the ED are 97.3 ?F. BP of 171/72, HR 54, RR of 18 and patient is currently satting 97% on room air. CBC and BMP are unremarkable. Initial high-sensitivity troponin was 9 and next high-sensitivity troponin was 20. Chest x-ray demonstrates no evidence of an acute cardiopulmonary process. ED physician reached out to Dr. Dhaliwal who agreed that this patient should be admitted for possible cardiac catheterization in the morning. [facility] Medical History Atherosclerotic heart disease of [place] coronary artery without angina pectoris Atrial fibrillation BPH (benign prostatic hyperplasia) Cervical vertebral fusion Family history of premature coronary heart disease USP use of drug NSTEMI (non-ST elevated myocardial infarction) Old myocardial infarction Parkinson disease Pure hypercholesterolemia Stented coronary artery (03/25/18) Unstable angina Home Medications carbidopa-levodopa 1 ea PO TID 10/01/13 [History Last Taken 02/26/21] cyanocobalamin (vitamin B-12) 500 mcg PO DAILY@0800 10/01/13 [History Last Taken 02/26/21] doxazosin 4 mg PO QHS 10/01/13 [History Last Taken 02/25/21] finasteride 5 mg PO DAILY 10/01/13 [History Last Taken 02/26/21] omeprazole 20 mg PO DAILY 10/01/13 [History Last Taken 02/25/21] pyridoxine (vitamin B6) 200 mg PO DAILY 10/01/13 [History Last Taken 02/26/21] aspirin 81 mg PO DAILY@0800 03/24/18 [History Last Taken 02/25/21] fluoxetine 40 mg PO DAILY 03/24/18 [History Last Taken 02/26/21] gabapentin 300 mg capsule 300 mg PO TID PRN 01/01/19 [History Last Taken 02/25/21] naproxen sodium 220 mg capsule 220 mg PO BID PRN 07/16/19 [History Last Taken Unknown] atorvastatin 80 mg tablet 80 mg PO QHS #90 tab 09/28/20 [Rx Last Taken 02/25/21] clopidogrel 75 mg tablet 75 mg PO DAILY #90 tab 11/23/20 [Rx Last Taken 02/26/21] Allergy/AdvReac Type Severity Reaction Status Date / Time oxycodone HCl [From Percocet] Allergy Intermediate Itching Verified 02/26/21 13:02 duloxetine HCl AdvReac Intermediate Mood Change Verified 02/26/21 13:02 [From Cymbalta] venlafaxine HCl AdvReac Intermediate Mood change Verified 02/26/21 13:02 [From Effexor] aricept AdvReac Intermediate GI upset Uncoded 02/26/21 13:02 Family History Father Myocardial infarction Heart disease Mother Cancer Brother Myocardial infarction Sister Cancer Surgical History (Updated 02/26/21 @ 16:30 by Jessi ARAMBULA) History of carpal tunnel surgery History of total left knee replacement (TKR) Hx of appendectomy Hx of tonsillectomy Presence of coronary angioplasty implant and graft Social History Smoking Status: Never smoker alcohol intake: never substance use type: does not use caffeine: Yes Type: carbonated beverages what type of physical activity do you participate in: walking frequency: 3-4 times per week duration: 15-30 minutes/day seatbelt use: always do you feel safe at home: Yes ROS Constitutional Constitutional: Denies anorexia, change in weight, chills, fatigue, fever(s), malaise, night sweats, weakness or other Eyes Eyes: Denies blurry vision, change in eye color, change in vision, discharge from eye(s), double vision, erythema, eye pain, loss of vision or other ENT HEENT: Denies abnormal hearing, dysphagia, ear pain, epistaxis, headache(s), hearing loss, nasal congestion, nasal discharge, post nasal drip, sinus pressure, sore throat or other Cardiovascular Cardiovascular: Reports chest pain; Denies claudication, dyspnea on exertion, edema, lightheadedness, orthopnea, palpitations, paroxysmal nocturnal dyspnea, rapid heart rate, syncope or other Respiratory/Chest Respiratory/Chest: Denies cough, dyspnea, excessive phlegm production, hemoptysis, productive cough, shortness of breath at rest, shortness of breath with exertion, wheezing or other Gastrointestinal Gastrointestinal: Denies abdominal pain, coffee ground emesis, constipation, diarrhea, dyspepsia, hematemesis, hematochezia, loose stools, melena, nausea, vomiting or other Genitourinary Genitourinary: Denies burning urination, difficulty urinating, dysuria, hematuria, nocturia, urinary frequency, urinary hesitancy, urinary incontinence, urinary urgency or other Musculoskeletal Musculoskeletal: Denies arthralgias, back pain, joint pain, joint stiffness, joint swelling, myalgias, neck pain or other Neurologic Neurologic: Denies abnormal gait, abnormal speech, confusion, disequilibrium, dizziness, focal weakness, headache(s), numbness, paresthesias, seizure-like activity, seizures, syncope, tingling, tremor(s) or other Psychiatric Psychiatric: Denies anxiety, depression, homicidal ideation, suicidal ideation or other Endocrine Endocrinology: Denies change in body appearance, cold intolerance, excessive sweating, heat intolerance, polydipsia, polyuria or other Hematologic/Lymphatic Hematologic/Lymphatic: Denies anemia, easy bleeding, easy bruising, lymphadenopathy or other Allergic/Immunologic Allergic/Immunologic: Denies rhinitis, hives, eczemia, asthma or other Vital Signs Vital Signs Vital Signs: 02/26/21 13:00 02/26/21 13:12 02/26/21 13:15 Temperature 98.1 F Temperature Source Oral Pulse Rate 74 Respiratory Rate 16 Respiratory Effort Normal Blood Pressure 158/89 H Blood Pressure Mean 112 Pulse Ox 94 Oxygen Delivery Method Room Air Room Air 02/26/21 14:00 02/26/21 15:00 02/26/21 16:02 Temperature 97.3 F L Temperature Source Temporal Pulse Rate 55 L 59 L 54 L Respiratory Rate 12 15 18 Respiratory Effort Blood Pressure 143/74 H 142/71 H 171/72 H Blood Pressure Mean 97 94 105 Pulse Ox 95 97 95 Oxygen Delivery Method Room Air Room Air Room Air Weight Weight: 197 lb 5.019 oz Body Mass Index (BMI) 29.9 Physical Exam Const alert, oriented x3 and no apparent distress General Appearance: cooperative HEENT normocephalic, head/scalp atraumatic and hearing grossly normal bilaterally Eyes PERRL, EOMs intact bilaterally and conjunctivae normal Neck no lymphadenopathy, supple and no JVD Resp normal respiratory effort, no retractions, no use of accessory muscles and clear to auscultation bilaterally Cardio regular rate, regular rhythm, no murmurs and no JVD GI normal to inspection, nondistended, normoactive bowel sounds, soft to palpation and non-tender Extremity normal to inspection, full ROM and no clubbing, cyanosis or edema Peripheral Pulses: Yes pulses 2+ throughout Skin no rashes or lesions noted, no wounds and skin turgor normal Neuro CN's II-XII intact bilaterally Psych affect normal Results Lab / Micro Data Result Diagrams: 02/26/21 13:05 02/26/21 13:05 Labs: Laboratory Results - last 24 hr 02/26/21 13:05: WBC 7.0, RBC 4.60, Hgb 14.4, Hct 40.9, MCV 88.9, MCH 31.3, MCHC 35.2, RDW Std Deviation 38.7, RDW Coeff of [place] 12.0, Plt Count 233, MPV 9.4, Immature Gran % (Auto) 0.300, Neut % (Auto) 64.6, Lymph % (Auto) 22.9, Esmeralda % (Auto) 8.0, Eos % (Auto) 3.6, Baso % (Auto) 0.6, Absolute Neuts (auto) 4.5, Absolute Lymphs (auto) 1.60, Nucleated RBC % 0 02/26/21 13:05: Sodium 139, Potassium 3.5, Chloride 108 H, Carbon Dioxide 25.0, Anion Gap 6, BUN 19 H, Creatinine 1.09, Estim Creat Clear Calc 62.75, Est GFR (MDRD) Af Amer 86, Est GFR (MDRD) Non-Af 71, BUN/Creatinine Ratio 17.4, Glucose 155 H, Calcium 8.9, Troponin I High Sens 9 02/26/21 14:55: Troponin I High Sens 20 Radiology Impression Chest X-Ray 02/26/21 13:12 IMPRESSION: 1. No evidence of acute cardiopulmonary process Electronically Signed: Sheng Goodwin MD at 14:17 EST Tel , Service support , Assessment & Plan Assessment/Plan (1) Chest pain: PLAN: Patient is a 70-year-old male who presents to the ED at [facility] on 02/26/2021 with a chief complaint of left-sided chest pain. Patient will be admitted for ACS rule out and possible cardiac catheterization. 1) chest pain/ACS rule out Patient presents with a 4-hour history of chest pain with exertion that is currently resolved. Past family medical history is significant for multiple heart attacks between patients father and brothers. Patient has never had a prior ID however has had stenting to the RCA and LAD most recently in 2018. Patient's heart score is 5, due to history, age and number of risk factors. Chest x-ray and cardiac monitoring demonstrate no acute cardiac process. Initial high-sensitivity troponin was 9 and next high-sensitivity troponin was 20. Case was discussed with Dr. Dhaliwal who requested that the patient be brought in for further investigation and possible catheterization tomorrow. Plan; admit to PCU for cardiac monitoring, continue to cycle cardiac enzymes, heart healthy diet ordered, CBC and BMP in a.m., Continue aspirin, statin and Plavix, nitroglycerin ordered, cardiology following. 2) CAD status post stent Has a history of coronary artery disease with angioplasty and stenting to his LAD and circumflex in 2008 as well as stenting to his RCA in 2013 in 2018. Has followed [address] Bhatti in the past, but currently follows with Dr. Tran of cardiology at [facility]. Already on aspirin, statin and Plavix. Plan; as above. 3) hyperlipidemia Continue statin. 4) BPH Continue finasteride and Cardura. 5) GERD Continue PPI. 6) depression Continue fluoxetine. CODE STATUS: Full code Advance care planning: Patient does have a living will and advanced directive. 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 Vaccination status: Patient and his close contacts of been fully vaccinated against COVID-19. DVT prophylaxis - not indicated due to possible catheterization in the morning. Patient seen by Jessi Calvert PA-C, under the supervision of Dr. Ratliff. Documented by User: Dr. 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 NSTEMI (non-ST elevated myocardial infarction) Old myocardial infarction Parkinson disease Pure hypercholesterolemia Stented coronary artery (03/25/18) Unstable angina Home Medications carbidopa-levodopa 1 ea PO TID 10/01/13 [History Last Taken 02/26/21] cyanocobalamin (vitamin B-12) 500 mcg PO DAILY@0800 10/01/13 [History Last Taken 02/26/21] doxazosin 4 mg PO QHS 10/01/13 [History Last Taken 02/25/21] finasteride 5 mg PO DAILY 10/01/13 [History Last Taken 02/26/21] omeprazole 20 mg PO DAILY 10/01/13 [History Last Taken 02/25/21] pyridoxine (vitamin B6) 200 mg PO DAILY 10/01/13 [History Last Taken 02/26/21] aspirin 81 mg PO DAILY@0800 03/24/18 [History Last Taken 02/25/21] fluoxetine 40 mg PO DAILY 03/24/18 [History Last Taken 02/26/21] gabapentin 300 mg capsule 300 mg PO TID PRN 01/01/19 [History Last Taken 02/25/21] naproxen sodium 220 mg capsule 220 mg PO BID PRN 07/16/19 [History Last Taken Unknown] atorvastatin 80 mg tablet 80 mg PO QHS #90 tab 09/28/20 [Rx Last Taken 02/25/21] clopidogrel 75 mg tablet 75 mg PO DAILY #90 tab 11/23/20 [Rx Last Taken 02/26/21] Allergy/AdvReac Type Severity Reaction Status Date / Time oxycodone HCl [From Percocet] Allergy Intermediate Itching Verified 02/26/21 13:02 duloxetine HCl AdvReac Intermediate Mood Change Verified 02/26/21 13:02 [From Cymbalta] venlafaxine HCl AdvReac Intermediate Mood change Verified 02/26/21 13:02 [From Effexor] aricept AdvReac Intermediate GI upset Uncoded 02/26/21 13:02 Family History Father Myocardial infarction Heart disease Mother Cancer Brother Myocardial infarction Sister Cancer Surgical History (Updated 02/26/21 @ 16:30 by Jessi ARAMBULA) History of carpal tunnel surgery History of total left knee replacement (TKR) Hx of appendectomy Hx of tonsillectomy Presence of coronary angioplasty implant and graft Social History Smoking Status: Never smoker alcohol intake: never substance use type: does not use caffeine: Yes Type: carbonated beverages what type of physical activity do you participate in: walking frequency: 3-4 times per week duration: 15-30 minutes/day seatbelt use: always do you feel safe at home: Yes Results Lab / Micro Data Result Diagrams: 02/26/21 13:05 02/26/21 13:05 Charges/Coding Addendum Addendum: Dr. Ratliff: I personally reviewed the chart and examined the patient, and agree with the above findings. 70-year-old male with an extensive cardiac history in the family as well as with himself. He has had multiple stents in the past and his most recent stent the stent broke and he had to have it repaired. He had a stent in 2008 and then in 2013 and then again in 2018. He also has an extensive family history with a brother who had to have stent and be life flighted to the [facility]. He states that he has been extremely active for the last several months but specifically this week without any significant chest pain. Today at around noon he developed pain in his left chest also into the pain he had with his last stent in 2018. He said that the pain lasted for about an hour and a half and then it resolved. Initially in the ER he had a nonischemic EKG and a troponin of 9. Recheck of his troponins it had risen to 20 and therefore it was discussed with him to have admission to the hospital for cardiology evaluation and monitoring. Visit Charges OBSV E&M: 29393 Initial observation care L3
[2021-02-26 19:07] LABS: Troponin-I HS 35 pg/mL (3.0-78.0)
--- NOTE | 2021-02-26 20:27 | PCM.DC ---
Discharge Instructions Diet Discharge Diet: Low fat / Low cholesterol Activity Discharge Activity: Return to Normal Activity Dressing / Incision Call your doctor if you observe: Fever of 101 or Higher, Shortness of breath, Dizziness, Fainting spells, Swelling in the ankles, Chest pain and Increased palpitations (irregular heartbeat) Follow Up Care Test Results: Test results from this visit will be discussed in further detail at your follow-up appointment, if applicable. Discharge Plan Admission Admit Date/Time: 02/26/21 15:57 Attending Provider: Imer Ratliff Primary Care Provider: Care Physician,No Primary Consulting Providers: Brent Dhaliwal Instructions Additional Instructions / Restrictions: As discussed call your primary joy operator helper in the morning to set up an evaluation at his facility. Discharge Orders/Prescriptions Prescriptions: Continued gabapentin 300 mg capsule 300 mg PO TID PRN (Reason: Pain) RF: 0 naproxen sodium [Aleve] 220 mg capsule 220 mg PO BID PRN (Reason: Pain) RF: 0 carbidopa-levodopa 1 EACH tablet extended release 1 ea PO TID RF: 0 cyanocobalamin (vitamin B-12) 500 MCG tablet 500 mcg PO DAILY@0800 RF: 0 pyridoxine (vitamin B6) 50 MG tablet 200 mg PO DAILY RF: 0 omeprazole 20 MG capsule 20 mg PO DAILY RF: 0 doxazosin 4 MG tablet 4 mg PO QHS RF: 0 finasteride 5 MG tablet 5 mg PO DAILY RF: 0 aspirin 81 MG tablet,chewable 81 mg PO DAILY@0800 RF: 0 fluoxetine 20 MG capsule 40 mg PO DAILY RF: 0 atorvastatin 80 mg tablet 80 mg PO QHS Qty: 90 RF: 3 clopidogrel 75 mg tablet 75 mg PO DAILY Qty: 90 RF: 3 Referrals / Follow Up: Care Physician,No Primary [Primary Care Provider] - Disposition Disposition (needs filled in before D/C Order can be placed): Home, Self Care
== END 2021-02-26 21:00 | disposition home or self-care (01) ==
LOC: ED 16:00 → PCU 16:14
PROVIDERS: Admitting Provider Family Medicine; Emergency Provider Emergency Medicine; Visit Provider Family Medicine
DX: R07.89 Other chest pain (principal); I25.10 Atherosclerotic heart disease of native coronary artery without angina pectoris; E78.5 Hyperlipidemia, unspecified; I10 Essential (primary) hypertension; N40.0 Benign prostatic hyperplasia without lower urinary tract symptoms; I25.2 Old myocardial infarction; K21.9 Gastro-esophageal reflux disease without esophagitis; F32.A Depression, unspecified; G20 Parkinson's disease; Z79.899 Other long term (current) drug therapy; Z79.02 Long term (current) use of antithrombotics/antiplatelets; Z79.82 Long term (current) use of aspirin; Z95.5 Presence of coronary angioplasty implant and graft
CPT/HCPCS: 36415; 71045; 80048; 84484; 85025; 93005; 99218; 99285; A4216; G0378

== ENCOUNTER → 2021-03-07 15:48 | Outpatient (CLI) | payer MEDICARE, OTHER, SELFPAY ==
[2021-03-07 15:51] LABS: Bacteria 0 SEEN /hpf (None Seen); Red Blood Cells-Urine 0 SEEN /hpf (0-5); Squamous Epithelial Cells - UA 0 SEEN /hpf (0-5); White Blood Cells 0 SEEN /hpf (0-5)
[2021-03-07 17:36] LABS: Absolute Lymphocyte Count 1.27 X10^3/uL (0.83-4.51); Absolute Neutrophil Count 4.6 X10^3/uL (2.0-7.7); Basophil# 0.04 X10^3/uL; Basophil% 0.6 % (0-1); Eosinophil# 0.21 X10^3/uL; Eosinophils% 3.1 % (0-5); Hematocrit 38.2 % (40-54); Hemoglobin 13.1 g/dL (13.0-16.5); Lymphocyte # 1.27 X10^3/ul (0.83-4.51); Lymphocyte % 18.8 % (19-41); Mean Corp Hgb Conc 34.3 g/dL (32-36); Mean Corpuscular Hgb 31.3 pg (27.0-32.0); Mean Corpuscular Volume 91.2 fL (80-94); Mean Platelet Vol. 9.8 fl (6.2-12.0); Monocyte# 0.61 X10^3/uL; NRBC Flagged by Analyzer 0 % (0-5); Neutrophil # 4.61 X10^3/uL (2.7-7.7); Neutrophil % 68.2 % (47-70); Platelet Count 219 K/mm3 (150-450); RBC Distribution Width CV 11.9 % (11.6-14.6); Red Blood Count 4.19 M/mm3 (4.6-6.2); White Blood Count 6.8 K/mm3 (4.4-11.0)
[2021-03-07 17:56] LABS: Color, Urine Yellow (Yellow); Glucose, Dipstick Normal (Normal); Ketone-Dipstick 5 mg/dl (Negative); Leukocyte Esterase-Dipstick Negative /ul (Negative); Nitrite-Dipstick Negative (Negative); Occult Blood-Urine Negative /ul (Negative); Protein-Dipstick Negative (Negative); Urine Bilirubin Dipstick Negative (Negative); Urine Clarity Clear (Clear); Urine Urobilinogen Normal (Normal)
[2021-03-07 18:00] LABS: ALB/GLOB Ratio 1.1 RATIO (0.9-2.4); AST(SGOT) 24 U/L (15-37); Alanine Aminotransfer ALT/SGPT 23 U/L (16-61); Albumin, Serum 3.6 g/dL (3.2-5.0); Alkaline Phosphatase 78 U/L (45-117); Anion Gap 6 (5-15); BUN 23 mg/dL (7-18); BUN/Creat Ratio 20.5 RATIO (10-20); Calcium,Total 8.5 mg/dL (8.5-10.1); Chloride 109 mmol/L (98-107); Cholesterol 124 mg/dL (200); Creatinine, Serum 1.12 mg/dL (0.70-1.30); EST Glomerular Filtration Rate 69 mL/min (>60); Est Glom Filt Rate - Afr Amer 84 mL/min (>60); Globulin 3.2 g/dL (2.2-4.2); Glucose 95 mg/dL (74-106); High Density Lipoprotein 45 mg/dL; PSA,Total - Annual Screen 0.75 ng/mL (0.00-4.00); Potassium 4.2 mmol/L (3.5-5.1); Protein, Total 6.8 g/dL (6.4-8.2); Sodium Level 140 mmol/L (136-145); T4 Free Direct 1.07 ng/dL (0.76-1.46); Thyroid Stim Hormone (TSH) 0.87 uIU/mL (0.358-3.74); Triglycerides 104 mg/dL; Very Low Density Lipoprotein 21 mg/dL (5-40)
[2021-03-07 18:12] LABS: Mucous, Urine RARE /hpf (<or=2+)
[2021-03-07 18:17] LABS: Hemoglobin A1c 5.4 % (3.8-5.6)
== END ==
PROVIDERS: PCP Family Medicine; Referring Provider Family Medicine; Visit Provider Family Medicine
DX: I10 Essential (primary) hypertension (principal); E78.5 Hyperlipidemia, unspecified; N40.1 Benign prostatic hyperplasia with lower urinary tract symptoms; R73.02 Impaired glucose tolerance (oral); E04.1 Nontoxic single thyroid nodule
CPT/HCPCS: 36415; 80053; 80061; 81001; 83036; 84153; 84439; 84443; 85025; G0103

== ENCOUNTER → 2021-03-15 10:14 | Outpatient (CLI) | payer MEDICARE, OTHER, SELFPAY ==
--- NOTE | 2021-03-15 10:17 | US_ITS ---
STUDY: THYROID ULTRASOUND REASON FOR EXAM: Male, 70 years old. Thyroid nodule. TECHNIQUE: Ultrasound evaluation of the thyroid was performed with real-time and static escalona-scale imaging. COMPARISON: None. FINDINGS: RIGHT LOBE: The right lobe of the thyroid gland measures 4.6 cm x 1.4 cm x 2 cm. There is a homogeneous echotexture. There are no demonstrated solid, cystic or complex lesions. LEFT LOBE: The left lobe of the thyroid gland measures 4.4 cm x 1.5 cm x 1.3 cm. There is a homogeneous echotexture. There are no demonstrated solid, cystic or complex lesions. ISTHMUS: The isthmus measures 3 mm. The regional lymph nodes are normal. US/Thyroid IMPRESSION: Normal ultrasound examination of the thyroid. Electronically Signed: Gordo Martin MD at 15:22 EST , Service support ,
== END ==
PROVIDERS: PCP Family Medicine; Referring Provider Family Medicine; Visit Provider Family Medicine
DX: E04.1 Nontoxic single thyroid nodule (principal)
CPT/HCPCS: 76536

== ENCOUNTER 2021-04-19 16:01 | Outpatient (CLI) | payer MEDICARE, OTHER, SELFPAY ==
--- NOTE | 2021-04-19 16:16 | RAD_ITS ---
STUDY: X-RAY - LEFT KNEE REASON FOR EXAM: Male, 70 years old. Knee pain. TECHNIQUE: 3 view(s) of the knee. COMPARISON: None. FINDINGS: Osteopenia. Moderate medial compartmental arthrosis with small osteophytes. Moderate arthrosis of the lateral compartment with osteophytes. Moderate arthrosis of the patellofemoral compartment with osteophytes. Chondrocalcinosis. RAD/Knee 3 Views IMPRESSION: Osteopenia with tricompartmental arthrosis and chondrocalcinosis. No acute abnormality, erosive changes or periostitis. Electronically Signed: Jefry Jimenez MD at 9:37 EST , Service support ,
--- NOTE | 2021-04-19 16:16 | RAD_ITS ---
STUDY: X-RAY - RIGHT KNEE REASON FOR EXAM: Male, 70 years old. Knee pain. TECHNIQUE: 3 view(s) of the knee. COMPARISON: None. FINDINGS: Osteopenia. Mild medial compartmental arthrosis. Normal lateral compartment. Normal patellofemoral compartment. Chondrocalcinosis. RAD/Knee 3 Views IMPRESSION: Osteopenia with mild medial compartmental arthrosis and chondrocalcinosis. No acute abnormality, erosive changes or periostitis. Electronically Signed: Jefry Jimenez MD at 9:38 EST , Service support ,
--- NOTE | 2021-04-19 16:17 | RAD_ITS ---
STUDY: X-RAY - RIGHT HAND REASON FOR EXAM: Male, 70 years old. Trigger finger. TECHNIQUE: 3 view(s) of the hand. COMPARISON: None. FINDINGS: Osteopenia. Mild arthrosis of the radiocarpal articulation. Mild arthrosis of the radial ulnar articulation. Moderate arthrosis of the radial carpal row. Moderate arthrosis of the first CMC joint. Moderate arthrosis of the MCP and IP joints. The soft tissue structures are unremarkable. RAD/Hand Min 3 Views IMPRESSION: Osteopenia with diffuse osteoarthrosis as described. No acute abnormality, erosive changes, chondrocalcinosis or periostitis. Electronically Signed: Jefry Jimenez MD at 9:33 EST , Service support ,
--- NOTE | 2021-04-19 16:17 | RAD_ITS ---
STUDY: X-RAY - PELVIS AND BILATERAL HIPS REASON FOR EXAM: Male, 70 years old. Arthritis. TECHNIQUE: AP view of the pelvis.? 2 views of the right hip, and 2 views of the left hip were obtained. COMPARISON: None. FINDINGS: There is a non-specific bowel gas pattern ovoid soft tissue calcifications above the femoral head on the right and the femoral neck on the left which may be secondary to injection granulomas. Vascular calcification. Osteopenia. Mild arthrosis of both sacroiliac joints. Normal bilateral superior and inferior pubic rami. Mild arthrosis of the symphysis pubis. Normal bilateral ischial tuberosities. Enthesopathic changes. Mild arthrosis of both hips. RAD/Hips B/L min 2 views w/ Pelvis IMPRESSION: Osteopenia with osteoarthritic changes as described. No acute abnormality, chondrocalcinosis, erosive changes or evidence of fusion. Electronically Signed: Jefry Jimenez MD at 9:35 EST , Service support ,
--- NOTE | 2021-04-19 16:40 | RAD_ITS ---
STUDY: X-RAY - LEFT HAND REASON FOR EXAM: Male, 70 years old. Trigger finger. TECHNIQUE: 3 view(s) of the hand. COMPARISON: None. FINDINGS: Osteopenia. Mild arthrosis of the radiocarpal articulation. Mild arthrosis of the radial ulnar articulation. Moderate arthrosis of the radial carpal row. Moderate arthrosis of the first CMC joint. Moderate arthrosis of the MCP and IP joints. The soft tissue structures are unremarkable. RAD/Hand Min 3 Views IMPRESSION: Osteopenia with diffuse osteoarthrosis as described. No acute abnormality, erosive changes, chondrocalcinosis or periostitis. Electronically Signed: Jefry Jimenez MD at 9:33 EST , Service support ,
[2021-04-19 17:47] LABS: Erythrocyte Sedimentation Rate 5 mm/hr (0-20)
[2021-04-22 07:50] LABS: CCP IgG Antibodies 10 units (0-19)
[2021-04-22 10:06] LABS: ANTINUCLEAR ANTIBODIES DIRECT Negative (Negative)
== END 2021-04-19 23:59 | disposition short-term general hospital (02) ==
PROVIDERS: PCP Family Medicine; Referring Provider Family Medicine; Visit Provider Family Medicine
DX: M65.30 Trigger finger, unspecified finger (principal); M16.0 Bilateral primary osteoarthritis of hip; M25.561 Pain in right knee; M25.562 Pain in left knee
CPT/HCPCS: 36415; 73130; 73521; 73562; 85652; 86038; 86200; 86431

== ENCOUNTER 2021-07-18 12:56 | Outpatient (CLI) | payer MEDICARE, OTHER, SELFPAY ==
--- NOTE | 2021-07-18 13:02 | RAD_ITS ---
STUDY: X-RAY - CERVICAL SPINE REASON FOR EXAM: Male, 71 years old. Neck pain and headache TECHNIQUE: 3 view(s) of the cervical spine were obtained. COMPARISON: None FINDINGS: There has been previous anterior cervical fusion from C5 to C7. Hardware is intact and free of complication. There is interbody fusion between C5 and C7. Normal anterior atlantoaxial articulation. Normal odontoid process. There is straightening of the normal cervical lordosis. Normal vertebral bodies and endplates. There is multi-level degenerative disc disease with multilevel disc space narrowing. There is anterior subluxation of C5 on C4 by 7 mm. The soft tissue structures are unremarkable. There is no demonstrated fracture of the cervical spine. RAD/Cerv Spine 2 or 3 Views IMPRESSION: Degenerative and postsurgical changes, no acute findings Electronically Signed: John Navarro MD at 14:48 EDT ,
== END 2021-07-18 23:59 | disposition home or self-care (01) ==
LOC: MTRAD 12:57
PROVIDERS: PCP Family Medicine; Referring Provider Family Medicine; Visit Provider Family Medicine
DX: M54.12 Radiculopathy, cervical region (principal)
CPT/HCPCS: 72040

== ENCOUNTER 2021-08-03 12:17 | Outpatient (CLI) | payer MEDICARE, OTHER, SELFPAY ==
--- NOTE | 2021-08-03 | CYSPIN_PTH ---
PATIENT: JESSI JEFFERSON (JACK) LOC: [facility] U#:[id number] AGE/SX: 71/M ROOM: RE08/03/[address]: Dr. Jessi Ann MD : 1950 BED: DIS: 08/03/2021 SPEC #: [id number] RECD: 08/04/21 08:43 STATUS: GONZALO RESherry #: [id number] CARLOS: 08/03/21 00:[address]: Jessi Ann DEPT: CYTOLOGY RECD BY: Henry Hodge Tissues: Urine Procedures: Pap Stain (control) Special Stain Group II Cytospin Fluid HEADER OPERATION: Not noted PRE-OP DIAGNOSIS: Hematuria TISSUE SUBMITTED: Urine for cytology DIAGNOSIS CYTOLOGY Urine for cytology (cytospin): Highly atypical cells, suspicious for urothelial carcinoma noted SJ:maritza 08/04/2021 COMMENT Correlation with clinical findings and appropriate follow up are necessary. Case has been reviewed in consultation with Dr. Castellanos who concurs with the above diagnosis. IDC:AM CYTOLOGY STUDY Slides are reviewed. CYTOLOGY GROSS Received is 60 ml of yellow cloudy fluid labeled with the patient's name and and designated per the requisition as urine. Submitted for cytology preparation. / maritza 08/03/2021 TC:5 CPT: 98928
[2021-08-03 12:34] LABS: Cytology, Body Fluid / CSF SEE PATHOLOGY REPORT
== END 2021-08-03 23:59 | disposition home or self-care (01) ==
LOC: LABSPEC 12:19
PROVIDERS: PCP Family Medicine; Referring Provider Family Medicine; Visit Provider Family Medicine
DX: R31.9 Hematuria, unspecified (principal)
CPT/HCPCS: 87086; 87088; 88108; 88313

== ENCOUNTER → 2021-08-28 | Outpatient (CLI) | payer MEDICARE, OTHER, SELFPAY ==
[2021-08-28 14:25] LABS: CREATININE FINGERSTICK 1.2 mg/dL (0.70-1.30); EGFR FINGERSTICK > 60.0000 mL/min (>60)
--- NOTE | 2021-08-28 14:30 | CT_ITS ---
EXAM: CT ABDOMEN AND PELVIS WITHOUT AND WITH INTRAVENOUS CONTRAST CLINICAL INDICATION: GROSS HEMATURIA TECHNIQUE: Helically acquired images were obtained of the abdomen and pelvis without and with intravenous contrast. This CT exam was performed using one or more of the following dose reduction techniques: automated exposure control, adjustment of the mA and/or kV according to patient size, and/or use of iterative reconstruction technique. This report was created using [employer] report generation technology. CONTRAST: 100ML OF ISOVUE 300 COMPARISON: None. FINDINGS: LOWER THORAX: Unremarkable. Lung bases are clear. No cardiomegaly. No significant pericardial effusion. ABDOMEN: LIVER: Unremarkable. Homogeneous. No focal mass. GALLBLADDER AND BILE DUCTS: Unremarkable. No calcified gallstones. No gallbladder distention or wall edema. No intra- or extrahepatic biliary ductal dilation. PANCREAS: Unremarkable. No focal cystic or solid mass. SPLEEN: Unremarkable. Normal size without focal cystic or solid mass. ADRENALS: Unremarkable. No nodules. KIDNEYS AND URETERS: There is right-sided hydronephrosis and hydroureter. There is an 8 mm stone proximal to mid right ureter. There is right perinephric inflammation. There are nonobstructing calyceal stones in the right kidney. Delayed images show no excretion of contrast from the right kidney with normal excretion on the left. Normal renal size and position. STOMACH AND BOWEL: Unremarkable. No stomach or bowel distention. No focal inflammatory change. PELVIS: APPENDIX: No evidence of acute appendicitis. BLADDER: Unremarkable. REPRODUCTIVE: Unremarkable as visualized. No mass. ABDOMEN and PELVIS: INTRAPERITONEAL SPACE: Unremarkable. No ascites or other fluid collection. No free air. BONES/JOINTS: Unremarkable. No suspicious lytic or blastic abnormality. SOFT TISSUES: Unremarkable. No discrete abdominal or pelvic wall hernia. VASCULATURE: Unremarkable. Abdominal aorta is non-dilated. LYMPH NODES: Unremarkable. No enlarged lymph nodes. CT/CT Abd/Pelvis W/WO Contrast IMPRESSION: Obstruction of the right collecting system due to an 8 mm stone in the proximal ureter. There is moderate hydronephrosis. There is no excretion of contrast from the right kidney on delayed images. Electronically Signed: Lukasz Barbour MD at 18:07 EDT ,
== END | disposition home or self-care (01) ==
LOC: CT 14:00
PROVIDERS: PCP Family Medicine; Visit Provider Urology
DX: R31.0 Gross hematuria (principal)
CPT/HCPCS: 74178; Q9967

== ENCOUNTER 2021-08-30 10:23 | Day surgery (SDC) | payer MEDICARE, OTHER, SELFPAY ==
[2021-08-30 10:51] VITALS: BP 138/73; PULSE 61; RESP 17; TEMP 36.6; O2SAT 97; BMI 31.0
--- NOTE | 2021-08-30 11:22 | HP.PCM_ITS ---
HPI - General HPI Narrative JESSI JEFFERSON, is a 71 M who presents for placement of a stent in the right kidney has a large obstructing stone and hydronephrosis and obstructive kidney he been having bleeding renal proceed with stent placement today however given his history of significant heart history and multiple stents and also some ques tionable history of some chest pain organ to wait for lasering until we get cardiac clearance. 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 Loss of hearing Non-smoker Old myocardial infarction Parkinson disease Parkinson's disease Poison daya Pure hypercholesterolemia Stented coronary artery (03/25/18) Tinnitus Unstable angina Home Medications carbidopa-levodopa 1 ea PO TID 10/01/13 [History Last Taken 02/26/21] cyanocobalamin (vitamin B-12) 500 mcg PO DAILY@0800 10/01/13 [History Last Taken 02/26/21] doxazosin 4 mg PO QHS 10/01/13 [History Last Taken 02/25/21] finasteride 5 mg PO DAILY 10/01/13 [History Last Taken 02/26/21] omeprazole 20 mg PO DAILY 10/01/13 [History Last Taken 02/25/21] pyridoxine (vitamin B6) 200 mg PO DAILY 10/01/13 [History Last Taken 02/26/21] aspirin 81 mg PO DAILY@0800 03/24/18 [History Last Taken 02/25/21] fluoxetine 40 mg PO DAILY 03/24/18 [History Last Taken 02/26/21] gabapentin 300 mg capsule 300 mg PO TID PRN 01/01/19 [History Last Taken 02/25/21] naproxen sodium 220 mg capsule 220 mg PO BID PRN 07/16/19 [History Last Taken Unknown] atorvastatin 80 mg tablet 80 mg PO QHS #90 tab 09/28/20 [Rx Last Taken 02/25/21] clopidogrel 75 mg tablet 75 mg PO DAILY #90 tab 08/21/21 [Rx Last Taken Unknown] ciprofloxacin HCl [Cipro] 500 mg PO BID #6 tab 08/30/21 [Rx Last Taken Unknown] Allergy/AdvReac Type Severity Reaction Status Date / Time oxycodone HCl [From Percocet] Allergy Intermediate Itching Verified 08/30/21 10:50 duloxetine HCl AdvReac Intermediate Mood Change Verified 08/30/21 10:50 [From Cymbalta] venlafaxine HCl AdvReac Intermediate Mood change Verified 08/30/21 10:50 [From Effexor] aricept AdvReac Intermediate GI upset Uncoded 08/30/21 10:50 Family History Father Myocardial infarction Heart disease Mother Cancer Brother Myocardial infarction Sister Cancer Surgical History History of cardiac catheterization History of carpal tunnel surgery History of cystoscopy Hx of Achilles tendon repair Hx of appendectomy Hx of arthroscopy of knee Hx of cervical spine surgery Hx of fusion of cervical spine Hx of tonsillectomy Presence of coronary angioplasty implant and graft Social History Smoking Status: Never smoker alcohol intake: never substance use type: does not use caffeine: Yes Type: carbonated beverages what type of physical activity do you participate in: walking frequency: 3-4 times per week duration: 15-30 minutes/day seatbelt use: always do you feel safe at home: Yes Vital Signs Vital Signs Vital Signs: 08/30/21 10:51 Temperature 97.8 F Temperature Source Temporal Pulse Rate 61 Respiratory Rate 17 Respiratory Pattern Irregular Blood Pressure 138/73 H Blood Pressure Mean 94 Blood Pressure Source Monitor Blood Pressure Position Semi-Fowlers Blood Pressure Location Left Arm Pulse Ox 97 Oxygen Delivery Method Room Air Weight Weight: 92.6 kg Body Mass Index (BMI) 31.0
--- NOTE | 2021-08-30 11:23 | PCM.DC ---
Discharge Instructions Diet Discharge Diet: No restrictions Activity Discharge Activity: Return to Normal Activity and May Not Drive (while taking narcotic pain medications.) Dressing / Incision Call your doctor if you observe: Fever of 101 or Higher Follow Up Care Please Follow Up With: Matt Lee MD When: Call [phone] for an appointment Test Results: Test results from this visit will be discussed in further detail at your follow-up appointment, if applicable. Discharge Plan Admission Primary Reason for Your Visit: stent placement for obstructing stone Attending Provider: Matt Lee Primary Care Provider: Jose Ann Instructions Patient Instructions: Having a Ureteral Stent Discharge Orders/Prescriptions Prescriptions: New ciprofloxacin HCl [Cipro] 500 mg tablet 500 mg PO BID Qty: 6 RF: 0 Continued gabapentin 300 mg capsule 300 mg PO TID PRN (Reason: Pain) RF: 0 naproxen sodium [Aleve] 220 mg capsule 220 mg PO BID PRN (Reason: Pain) RF: 0 carbidopa-levodopa 1 EACH tablet extended release 1 ea PO TID RF: 0 cyanocobalamin (vitamin B-12) 500 MCG tablet 500 mcg PO DAILY@0800 RF: 0 pyridoxine (vitamin B6) 50 MG tablet 200 mg PO DAILY RF: 0 omeprazole 20 MG capsule 20 mg PO DAILY RF: 0 doxazosin 4 MG tablet 4 mg PO QHS RF: 0 finasteride 5 MG tablet 5 mg PO DAILY RF: 0 aspirin 81 MG tablet,chewable 81 mg PO DAILY@0800 RF: 0 fluoxetine 20 MG capsule 40 mg PO DAILY RF: 0 atorvastatin 80 mg tablet 80 mg PO QHS Qty: 90 RF: 3 clopidogrel 75 mg tablet 75 mg PO DAILY Qty: 90 RF: 3 Referrals / Follow Up: Matt Lee MD [STAFF PHYSICIAN] - Jose Ann MD [Primary Care Provider] - Disposition Disposition (needs filled in before D/C Order can be placed): Home, Self Care
[2021-08-30] MEDS: Cefazolin 2 GM in 0.9% Normal Saline 100 ML IV (11:25)
[2021-08-30] MEDS: Lidocaine Jelly 2% 20 ML Syringe (URO-JET) 1 APPLIC (11:25)
--- NOTE | 2021-08-30 11:48 | OP.PCM_ITS ---
Report of Operation Date of Procedure: 08/30/21 Pre-Operative Diagnosis: Obstructing right ureteral calculi Post-Operative Diagnosis: same Surgery/Procedure Performed:: Cystoscopy and right stent placement , retrograde pyelogram interpretation fluoroscopic images Description of Surgical Findings:: Patient was taken back to the operating room after induction of general anesthesia, the patient was placed in dorsolithotomy position. The urethra and genitals were prepped and draped in usual sterile fashion. Using a 21 [place] rigid cystourethroscope the entire length of the urethra was normal then went into the bladder. Identified the trigone the left and right ureteral orifice. I then cannulated the Right orifice and advanced a wire up into the kidney. I then backloaded a 5 [place]ian open ended catheter over the wire and injected contrast to delineate the anatomy. After the retrograde was performed I then used fluoroscopic images and guidance to advanced a wire up into the kidney and over the 0.038 glidewire I advanced a 6 [place]ian by 26 cm double pigtail stent. I then pulled the 0.038 Glidewire off and the stent coiled in the kidney bladder good position. The bladder was then drained. We confirmed the position of the stent by fluoroscopy. Patient anesthetic was reversed and was taken back to the PACU in good condition. Surgeon: haresh Type of Anesthesia: MAC and Topical Anesth Drains: right stent Admit VTE Documentation VTE Present on Admission: No VTE Mechan Device Prophylaxis: SCD's VTE Pharm Prophylaxis ordered?: No
[2021-08-30 11:55] VITALS: BP 114/54; BP 137/73; PULSE 60; RESP 16; TEMP 36.4; O2SAT 95
[2021-08-30 12:00] VITALS: BP 119/57; BP 137/73; PULSE 59; RESP 14; O2SAT 94
[2021-08-30 12:05] VITALS: BP 123/58; BP 137/73; PULSE 56; RESP 16; O2SAT 95
[2021-08-30 12:10] VITALS: BP 133/64; BP 137/73; PULSE 58; RESP 16; TEMP 36.2; O2SAT 97
[2021-08-30 12:55] VITALS: BP 137/73; BP 163/72; PULSE 53; RESP 16; TEMP 36.1; O2SAT 92
== END 2021-08-30 13:10 | disposition home or self-care (01) ==
LOC: SDC 10:24 → AC 10:25
PROVIDERS: PCP Family Medicine; Visit Provider Urology
PROC: 0TJ98ZZ Inspection of Ureter, Via Natural or Artificial Opening Endoscopic (ICD-10-PCS; CPT 52352; principal; 2021-08-30 12:25)
DX: N13.2 Hydronephrosis with renal and ureteral calculous obstruction (principal); G20 Parkinson's disease; I48.91 Unspecified atrial fibrillation; F41.9 Anxiety disorder, unspecified; I25.10 Atherosclerotic heart disease of native coronary artery without angina pectoris; N40.0 Benign prostatic hyperplasia without lower urinary tract symptoms; F32.A Depression, unspecified; K21.9 Gastro-esophageal reflux disease without esophagitis; E78.00 Pure hypercholesterolemia, unspecified; I25.2 Old myocardial infarction; Z95.1 Presence of aortocoronary bypass graft; Z79.899 Other long term (current) drug therapy; Z79.82 Long term (current) use of aspirin; Z79.02 Long term (current) use of antithrombotics/antiplatelets
CPT/HCPCS: 52332; 00910; 76000; J7120; C1769; C2617; J2405

== ENCOUNTER 2021-09-08 11:02 | Day surgery (SDC) | payer MEDICARE, OTHER, SELFPAY ==
[2021-09-08] VITALS (7 sets, daily range): BP systolic 150–170; BP diastolic 67–81; PULSE 56–63; RESP 12–18; TEMP 36.5–36.8; O2SAT 58–98; BMI 30.6
--- NOTE | 2021-09-08 10:54 | RAD_ITS ---
STUDY: X-RAY - ABDOMEN/PELVIS REASON FOR EXAM: Male, 71 years old. PRE OP TECHNIQUE: KUB COMPARISON: None. FINDINGS: Normal visualized lung bases. There is an unremarkable bowel gas pattern. There is no demonstrated free abdominal air. There is a small calculus seen within the right renal collecting system. Right sided ureterovesical stent is noted in situ.. Lumbar spine demonstrates degenerative change RAD/Abdomen Single View IMPRESSION: Right nephrolithiasis. Status post ureterovesical stent placement Electronically Signed: Carlos Sheehan MD at 22:58 EDT ,
[2021-09-08] MEDS: Lactated Ringers 1,000 ML 15 ML IV (11:30)
--- NOTE | 2021-09-08 12:00 | HP.PCM_ITS ---
HPI - General HPI Narrative JESSI JEFFERSON, is a 71 M who presents for treatment of a right renal calculi status post stent [facility] Medical History (Updated 08/31/21 @ 13:[address] 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 Loss of hearing Non-smoker Old myocardial infarction Parkinson disease Parkinson's disease Poison daya Pure hypercholesterolemia Stented coronary artery (03/25/18) Tinnitus Unstable angina Home Medications carbidopa-levodopa 1 ea PO TID 10/01/13 [History Last Taken 02/26/21] cyanocobalamin (vitamin B-12) 500 mcg PO DAILY@0800 10/01/13 [History Last Taken 02/26/21] doxazosin 4 mg PO QHS 10/01/13 [History Last Taken 02/25/21] finasteride 5 mg PO DAILY 10/01/13 [History Last Taken 02/26/21] omeprazole 20 mg PO DAILY 10/01/13 [History Last Taken 02/25/21] pyridoxine (vitamin B6) 200 mg PO DAILY 10/01/13 [History Last Taken 02/26/21] aspirin 81 mg PO DAILY@0800 03/24/18 [History Last Taken 02/25/21] fluoxetine 40 mg PO DAILY 03/24/18 [History Last Taken 02/26/21] gabapentin 300 mg capsule 300 mg PO TID PRN 01/01/19 [History Last Taken 02/25/21] naproxen sodium 220 mg capsule 220 mg PO BID PRN 07/16/19 [History Last Taken Unknown] atorvastatin 80 mg tablet 80 mg PO QHS #90 tab 09/28/20 [Rx Last Taken 02/25/21] clopidogrel 75 mg tablet 75 mg PO DAILY #90 tab 08/21/21 [Rx Last Taken 08/28/21] ascorbic acid (vitamin C) 500 mg tablet 500 mg PO DAILY 08/31/21 [History Last Taken Unknown] Allergy/AdvReac Type Severity Reaction Status Date / Time oxycodone HCl [From Percocet] Allergy Intermediate Itching Verified 09/08/21 11:32 duloxetine HCl AdvReac Intermediate Mood Change Verified 09/08/21 11:32 [From Cymbalta] venlafaxine HCl AdvReac Intermediate Mood change Verified 09/08/21 11:32 [From Effexor] aricept AdvReac Intermediate GI upset Uncoded 09/08/21 11:32 Family History (Updated 08/31/21 @ 13:41 by Tierra Hoyt) Father Myocardial infarction Heart disease CAD (coronary artery disease) Mother Cancer Colon cancer Brother Myocardial infarction CAD (coronary artery disease) Heart disease Sister Cancer Surgical History (Updated 09/05/21 @ 08:41 by Lyla Bradshaw) History of cardiac catheterization History of carpal tunnel surgery History of colonoscopy (~2015) History of cystoscopy History of ureteroscopy Hx of Achilles tendon repair Hx of appendectomy Hx of arthroscopy of knee Hx of cervical spine surgery Hx of fusion of cervical spine Hx of tonsillectomy Presence of coronary angioplasty implant and graft Social History Smoking Status: Never smoker alcohol intake: never substance use type: does not use caffeine: Yes Type: carbonated beverages what type of physical activity do you participate in: walking frequency: 3-4 times per week duration: 15-30 minutes/day seatbelt use: always do you feel safe at home: Yes Vital Signs Vital Signs Vital Signs: 09/08/21 11:30 Temperature 98.2 F Temperature Source Temporal Pulse Rate 56 L Respiratory Rate 18 Respiratory Pattern Normal Blood Pressure 153/67 H Blood Pressure Mean 95 Blood Pressure Source Monitor Blood Pressure Position Sitting Blood Pressure Location Left Arm Pulse Ox 98 Oxygen Delivery Method Room Air Weight Weight: 91.4 kg Body Mass Index (BMI) 30.6
--- NOTE | 2021-09-08 12:00 | PCM.DC ---
Discharge Instructions Diet Discharge Diet: No restrictions Activity Discharge Activity: Return to Normal Activity and May Not Drive (while taking narcotic pain medications.) Dressing / Incision Call your doctor if you observe: Fever of 101 or Higher Follow Up Care Please Follow Up With: Matt Lee MD When: Call [phone] for an appointment Test Results: Test results from this visit will be discussed in further detail at your follow-up appointment, if applicable. Discharge Plan Admission Primary Reason for Your Visit: ESWL Attending Provider: Matt Lee Primary Care Provider: Jose Ann Instructions Patient Instructions: Shock Wave Lithotripsy Discharge Orders/Prescriptions Prescriptions: Continued gabapentin 300 mg capsule 300 mg PO TID PRN (Reason: Pain) RF: 0 naproxen sodium [Aleve] 220 mg capsule 220 mg PO BID PRN (Reason: Pain) RF: 0 ascorbic acid (vitamin C) 500 mg tablet 500 mg PO DAILY RF: 0 carbidopa-levodopa 1 EACH tablet extended release 1 ea PO TID RF: 0 cyanocobalamin (vitamin B-12) 500 MCG tablet 500 mcg PO DAILY@0800 RF: 0 pyridoxine (vitamin B6) 50 MG tablet 200 mg PO DAILY RF: 0 omeprazole 20 MG capsule 20 mg PO DAILY RF: 0 doxazosin 4 MG tablet 4 mg PO QHS RF: 0 finasteride 5 MG tablet 5 mg PO DAILY RF: 0 aspirin 81 MG tablet,chewable 81 mg PO DAILY@0800 RF: 0 fluoxetine 20 MG capsule 40 mg PO DAILY RF: 0 atorvastatin 80 mg tablet 80 mg PO QHS Qty: 90 RF: 3 clopidogrel 75 mg tablet 75 mg PO DAILY Qty: 90 RF: 3 Other Ambulatory Orders: Abdomen Single View (Routine) Timeframe: [id number] Facility: [facility] [place] - Location: Radiology, [facility] Ordered By: Dr. Matt Lee Referrals / Follow Up: Matt Lee MD [STAFF PHYSICIAN] - Jose Ann MD [Primary Care Provider] - Disposition Disposition (needs filled in before D/C Order can be placed): Home, Self Care
[2021-09-08] MEDS: Cefazolin 2 GM in 0.9% Normal Saline 100 ML IV (12:15)
--- NOTE | 2021-09-08 13:02 | OP.PCM_ITS ---
Report of Operation Date of Procedure: 09/08/21 Pre-Operative Diagnosis: right kidney stone Post-Operative Diagnosis: same Surgery/Procedure Performed:: Right ESWL Description of Surgical Findings:: Patient presents to the hospital for treatment of a kidney stone with shockwave lithotripsy. In the preoperative area and x-ray was done to confirm the location of the stone. The x-ray was reviewed and the stone location was reviewed. In the preoperative setting I spoke with the patient regarding the treatment of the stone how the treatment would be conducted and the expectations after surgery. The patient understands there is a risk of bleeding and infection. Also discussed the very rare risk of hematoma or damage to the kidney. We also discussed the risk that the shockwave machine will fail to break the stone adequately and that the patient may need other surgical procedures. We also discussed the possibility that the patient may need a stent after the procedure. After reviewing the procedure with the patient, the patient is signed the consent form all the patient's questions were addressed and was taken back to the operating room for treatment of a kidney stone. Patient was taken back to the operating room, patient was identified by the nursing staff, we identified the side of the treatment and the patient side of treatment had been marked by my initials. The patient underwent general anesthetic and was placed supine on the lithotripter table. We then used fluoroscopy to identify the stone on the Right side next to the stent in the renal pelvis. We then positioned the patient under the lithotripter and we used triangulation technique to identify the location of the stone and then we made sure that the stone was engaged in the F2 focal point of F2 Donier lithoprior machine. Once the patient was positioned appropriately and the stone was identified and placed in the F2 focal point of the lithotripter machine we then proceeded with shockwave lithotripsy. In the beginning the shockwave was deliv ered at a rate of 90 shocks per minute, we monitor the EKG for any ectopy. The power was slowly increased to 5 kV and subsequently at the 7 kV. We then proceeded with the treatment we move the therapy had around during the treatment to make sure the stone stayed in the F2 focal point during the entire treatment and after 3000 shockwaves were delivered to the stone under fluoroscopic guidance the treatment was completed. The patient was given instructions to call the office to make an a follow-up appointment with an xray to evaluate the success of the treatment, pateint understands that its possible the stones may need another procedure.At this point the patient's anesthetic was reversed patient was extubated and taken back to the PACU in stable condition. Surgeon: haresh Type of Anesthesia: General Drains: stent Admit VTE Documentation VTE Present on Admission: No VTE Mechan Device Prophylaxis: SCD's VTE Pharm Prophylaxis ordered?: No
== END 2021-09-08 15:28 | disposition home or self-care (01) ==
LOC: SDC 11:02 → AC 11:03
PROVIDERS: PCP Family Medicine; Referring Provider Urology; Visit Provider Urology
PROC: (CPT 50590; principal; 2021-09-08 12:45)
DX: N20.0 Calculus of kidney (principal); G20 Parkinson's disease; I48.91 Unspecified atrial fibrillation; F41.9 Anxiety disorder, unspecified; Z87.442 Personal history of urinary calculi; Z79.899 Other long term (current) drug therapy; I25.2 Old myocardial infarction; E78.00 Pure hypercholesterolemia, unspecified; Z95.5 Presence of coronary angioplasty implant and graft; Z79.02 Long term (current) use of antithrombotics/antiplatelets; Z79.82 Long term (current) use of aspirin; I25.10 Atherosclerotic heart disease of native coronary artery without angina pectoris; M19.90 Unspecified osteoarthritis, unspecified site; N40.0 Benign prostatic hyperplasia without lower urinary tract symptoms; F32.A Depression, unspecified; K21.9 Gastro-esophageal reflux disease without esophagitis
CPT/HCPCS: 00873; 74018; J7120; J2405

== ENCOUNTER → 2021-09-14 | Outpatient (CLI) | payer MEDICARE, OTHER, SELFPAY ==
--- NOTE | 2021-09-14 08:14 | RAD_ITS ---
STUDY: X-RAY - ABDOMEN/PELVIS REASON FOR EXAM: Male, 71 years old. BRITTANI OF KIDNEY TECHNIQUE: Single AP view of the abdomen / pelvis. COMPARISON: 09/08/2021 FINDINGS: Normal visualized lung bases. Right kidney is largely obscured by bowel contents. The central right renal calculus evident on prior x-ray is not clearly seen. Right ureter stent is stable. There is no demonstrated free abdominal air. The visualized liver, spleen and kidneys are grossly normal in size and morphology. Normal soft tissue structures. Normal visualized osseous structures. RAD/Abdomen Single View IMPRESSION: Right ureteral stent. Right renal calculus seen previously not clearly visible. Electronically Signed: Keyon Hernandez MD ([place]) at 16:11 EDT ,
== END | disposition home or self-care (01) ==
LOC: RAD 08:14
PROVIDERS: PCP Family Medicine; Referring Provider Urology; Visit Provider Urology
DX: N20.0 Calculus of kidney (principal)
CPT/HCPCS: 74018

== ENCOUNTER 2021-10-24 06:48 | Day surgery (SDC) | payer MEDICARE, OTHER, SELFPAY ==
--- NOTE | 2021-10-24 07:25 | HP.PCM_ITS ---
History and Physical Date of Admission: 10/24/21 Visit Reasons:?COLONOSCOPY Chief Complaint: fam hx colon ca Professional Application Designer Required: No Is patient in pain?: No Allergies oxycodone HCl [From Percocet] Allergy (Intermediate, Verified 08/31/21 13:39) Itchingduloxetine HCl [From Cymbalta] Adverse Reaction (Intermediate, Verified 08/31/21 13:39) Mood Changevenlafaxine HCl [From Effexor] Adverse Reaction (Intermediate, Verified 08/31/21 13:39) Mood changearicept Adverse Reaction (Intermediate, Uncoded 08/30/21 10:50) GI upset Medications carbidopa-levodopa 1 ea PO TID 10/01/13 [History Confirmed 08/31/21] cyanocobalamin (vitamin B-12) 500 mcg PO DAILY@0800 10/01/13 [History Confirmed 08/31/21] doxazosin 4 mg PO QHS 10/01/13 [History Confirmed 08/31/21] finasteride 5 mg PO DAILY 10/01/13 [History Confirmed 08/31/21] omeprazole 20 mg PO DAILY 10/01/13 [History Confirmed 08/31/21] pyridoxine (vitamin B6) 200 mg PO DAILY 10/01/13 [History Confirmed 08/31/21] aspirin 81 mg PO DAILY@0800 03/24/18 [History Confirmed 08/31/21] fluoxetine 40 mg PO DAILY 03/24/18 [History Confirmed 08/31/21] gabapentin 300 mg capsule 300 mg PO TID PRN 01/01/19 [History Confirmed 08/31/21] naproxen sodium 220 mg capsule 220 mg PO BID PRN 07/16/19 [History Confirmed 08/31/21] atorvastatin 80 mg tablet 80 mg PO QHS #90 tab 09/28/20 [Rx Confirmed 08/31/21] clopidogrel 75 mg tablet 75 mg PO DAILY #90 tab 08/21/21 [Rx Confirmed 08/31/21] ciprofloxacin HCl [Cipro] 500 mg PO BID #6 tab 08/30/21 [Rx Confirmed 08/31/21] ascorbic acid (vitamin C) 500 mg tablet 500 mg PO DAILY 08/31/21 [History Confirmed 08/31/21] PFSH Medical History?(Updated 08/31/21 @ 13:[address] 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 Atrial fibrillation Back pain BPH (benign prostatic hyperplasia) Cancer Cardiology follow-up encounter Chest pain Depression Family history of premature coronary heart disease Gastric reflux High cholesterol History of echocardiogram History of hiatal hernia History of stress test Injury of head and neck FCI use of drug Loss of hearing Non-smoker Old myocardial infarction Parkinson disease Parkinson's disease Poison daya Pure hypercholesterolemia Stented coronary artery (03/25/18) Tinnitus Unstable angina Surgical History?(Updated 08/31/21 @ 13:42 by Tierra Hoyt) History of cardiac catheterization History of carpal tunnel surgery History of colonoscopy (~2015) History of cystoscopy Hx of Achilles tendon repair Hx of appendectomy Hx of arthroscopy of knee Hx of cervical spine surgery Hx of fusion of cervical spine Hx of tonsillectomy Presence of coronary angioplasty implant and graft Family History?(Updated 08/31/21 @ 13:41 by Tierra Hoyt) Father?? Myocardial infarction Heart disease CAD (coronary artery disease)Mother?? Cancer Colon cancerBrother Myocardial infarction CAD (coronary artery disease) Heart diseaseSister Cancer Social History? Smoking Status:? Never smoker alcohol intake:? never substance use type:? does not use caffeine:? Yes Type: carbonated beverages what type of physical activity do you participate in:? walking frequency:? 3-4 times per week duration:? 15-30 minutes/day seatbelt use:? always do you feel safe at home:? Yes HPI HPI HPI: JESSI JEFFERSON, is a 71 M who presents to the office today for surgical consultation regarding colonoscopy.? The patient is referred by Dr Jessi Ann and a written copy my surgical consult recommendations will return to him.? On June 03, 2015 the patient had a colonoscopy performed by Dr. Shree Hathaway.? Diverticula were noted.? Internal hemorrhoids noted.? Recommendations were for follow-up screening colonoscopy in 5 years.The family history of colon cancer in her mother who from the disease.? He said he thinks maybe 4 previous colonoscopies.? On [address] Lai Leonard 1 item was removed but apparently was benign.? The patient also was having a cough.? He wonders whether he has reflux disease.? He would like to have this evaluated as well. He has a very strong family history of cardiac disease.? He himself has 3 coronary stents.? He had 1 stent placed because of fracture of her previous stent.? He is having some slight intermittent left chest pressure.? He just recently had a kidney stone and under moderate and end-stage care had a cystoscopy and ureteral stent placed.? His agricultural research technologist is [facility] and he will be getting further information and clearance. Fortunately has no abdominal pain.? No change in weight.? He is currently building himself at home. ROS General General: No weight change, appetite, fatigue, colon cancer, breast cancer or weakness HEENT HEENT: No difficulty swallowing, eye injury, eye surgery, swollen glands or hoarseness Endo Endocrine: No thyroid disease, diabetes mellitus, thyroid cancer, Hair loss, heat intolerance or cold intolerance Musc Musculoskeletal: Yes arthritis; No back problems, rheumatoid arthritis, gout or joint pain Cardio Cardiovascular: Yes heart disease and heart stent; No murmur, pacemaker, atrial fibrillation, high blood pressure, heart attack, palpitations, shortness of breat with exertion or chest pain Psych Psychiatric: Yes depression and anxiety; No hearing voices Resp Respiratory: No shortness of breath, No sleep apnea, Yes cough, No COPD, No asthma, No emphysema and No wheezing Gastro Gastrointestinal: No abdominal pain, No nausea or vomiting, No diarrhea, No constipation, No blood in stool, Yes acid reflux, Yes hemorrhoids, No ulcers, No gallbladder problem and No black,tarry stools Jose Hematologic: No blood thinners, No blood disorders, No bleeding, No anemia and No blood clots Neuro Neurologic: No weakness Exam Const General: cooperative, comfortable, no acute distress and well developed Nutritional Appearance: overweight Orientation: alert, awake and [facility] normal to inspection Eyes General: appearance normal, both eyes and all related structures Resp Effort & Inspection: normal respiratory effort Auscultation: clear to auscultation bilaterally Cardio Rate: regular rate Rhythm: regular rhythm GI Palpation: soft and no hepatosplenomegaly Auscultation: normal bowel sounds Musc Cervical Spine: normal cervical lordosis Neuro General: patient alert, patient awake and patient oriented x3 Extrem General: no calf tenderness Psych Appearance: grossly normal Assessment and Plan Assessment and Plan (1) Family history of premature coronary heart disease: ?Status:?Chronic ?Comment: Male <55 (2) Family history of colon cancer in mother: ?Status:?Acute (3) Cough: ?Status:?Acute ?Plan - Dr. Raleigh Woo MD: Because of the patient's intermittent cough there are concerns that this could represent gastroesophageal reflux disease.? I believe that is pertinent add a esophagogastroduodenoscopy with possible biopsy to his evaluation. He has a strong family history of colon cancer.? Propose that we do a colonoscopy with possible biopsy or polypectomy as indicated.? Previous colonoscopy May 2015. The patient will be seeing his [facility] agricultural research technologist and hopefully get clearance.? We will have him remain on his aspirin and clopidogrel therapy the day prior.? I anticipate performing this with monitored anesthesia care.? He is aware of the technique, benefit, risk of alternatives.? He has had an opportunity to ask and have questions answered.? We will schedule procedure at his discretion.? He also is being treated for a kidney stone has a ureteral stent in and will need to have some additional work with that. Copy: Dr Jessi Woo M.D., F.A.C.S. I have re-examined the patient. There are no clinical changes since date of exam. Raleigh Woo M.D., F.A.C.S.
[2021-10-24 07:31] VITALS: BP 132/69; PULSE 55; RESP 16; TEMP 36.6; O2SAT 98; BMI 29.7
[2021-10-24] MEDS: Lactated Ringers 1,000 ML 15 ML IV (07:45)
--- NOTE | 2021-10-24 08:00 | IMM_PTH ---
PATIENT: JESSI JEFFERSON (JACK) LOC: EN U#:[id number] AGE/SX: 71/M ROOM: RE10/24/[address]: Dr. Raleigh Woo MD : 1950 BED: DIS: 10/24/2021 SPEC #: [id number] RECD: 10/24/21 13:42 STATUS: GONZALO RESherry #: [id number] CARLOS: 10/24/21 08:[address]: Raleigh Woo DEPT: IMMUNOHISTOCHEMISTRY RECD BY: Erin Flores ENTERED: 10/24/21 13:42 SP TYPE: IMMUNO OTHR DR: Dr. Jessi Ann MD Tissues: A - Stomach, NOS Procedures: H Pylori (initial) PHYSICIAN & INSTITUTION [place] [id number] SPECIMEN INFORMATION: Tissue Source: A ? Antrum biopsy Clinical Info: Family history of premature coronary heart disease and colon cancer Specimen Number: [id number] CPT code: 46640 METHODOLOGY: Deparaffinized sections of prefer/formalin-fixed tissue or PAP/DQ stained slides are incubated with monoclonal/polyclonal antibodies/oligonucleotide probes. Localization is made via biotin free immunoperoxidase method. Appropriate controls are performed and reacted as expected. Results on target cell population are indicated in the following table: RESULTS: ANTIBODY / CLONE RESULT Block A H Pylori (polyclonal) negative These tests were developed and their performance characteristics determined by [facility]. They may not have been cleared or approved by the U.S. Food and Drug Administration. The FDA has determined that such clearance or approval is not necessary. The above immunohistochemical/dualISH markers are ordered and reviewed by the Pathologist. INTERPRETATION: A. Antrum, biopsy: Negative for Helicobacter pylori organisms. GURPREET:maritza 10/25/2021
--- NOTE | 2021-10-24 08:00 | EGD_PTH ---
PATIENT: JESSI JEFFERSON (JACK) LOC: EN U#:[id number] AGE/SX: 71/M ROOM: RE10/24/[address]: Dr. Raleigh Woo MD : 1950 BED: DIS: 10/24/2021 SPEC #: [id number] RECD: 10/24/21 11:03 STATUS: GONZALO MCKOY #: [id number] CARLOS: 10/24/21 08:[address]: Raleihg Woo DEPT: SURGICAL PATHOLOGY RECD BY: Sherice Ornelas ENTERED: 10/24/21 11:37 SP TYPE: EGD BIOPSY OT DR: Dr. Jessi Ann MD Tissues: A - Gastric mucous membrane B - Stomach, NOS c - Stomach, NOS Procedures: Surgery Specimen Level IV HEADER OPERATION: Colonoscopy, EGD ([facility]), biopsy PRE-OP DIAGNOSIS: Family history of premature coronary heart disease, family history of colon cancer TISSUE SUBMITTED: A ? Antrum biopsy for histo and H. pylori, B ? Greater curvature polyp biopsy, C ? GE junction biopsy MICROSCOPIC DIAGNOSIS A. Antrum, biopsy: Mild gastritis. See microscopic description and comment. B. Greater curvature polyp, biopsy: Fragments of fundic gland polyp. C. Gastroesophageal junction, biopsy: A fragment of gastroesophageal mucosa with chronic inflammation. Intestinal metaplasia (goblet cell metaplasia) not identified. See comment. SJ:maritza 10/25/2021 COMMENT A. The results of immunohistochemistry for Helicobacter pylori will be reported separately ([id number]). C. Alcian blue/PAS stain with matched control is used in the evaluation of the specimen. MICROSCOPIC DESCRIPTION Slides are reviewed. A. The specimen shows fragments of gastric mucosa with chronic inflammatory cell infiltrates in the lamina propria consisting of lymphocytes and plasma cells, consistent with mild chronic gastritis. GROSS DESCRIPTION A - Received in fixative is one container labeled with the patient's name and designated antrum biopsy. The specimen consists of one irregular fragment of light merino soft tissue that measures 0.4 x 0.3 x 0.1 cm. The specimen is totally submitted in one cassette. B - Received in fixative is one container labeled with the patient's name and designated greater curvature polyp biopsy. The specimen consists of multiple irregular fragments of light merino soft tissue that in aggregate measure 0.4 x 0.3 x 0.1 cm. The specimen is totally submitted in one cassette. C - Received in fixative is one container labeled with the patient's name and designated GE junction biopsy. The specimen consists of one irregular fragment of light merino soft tissue that measures 0.6 x 0.2 x 0.1 cm. The specimen is totally submitted in one cassette. / SJ:rg 10/24/2021 TC:5 CPT: 41982 x3, 95262
[2021-10-24 08:35] VITALS: BP 100/59; BP 132/69; PULSE 62; RESP 14; TEMP 37.3; O2SAT 93
[2021-10-24 08:40] VITALS: BP 101/58; BP 132/69; PULSE 62; RESP 16; O2SAT 96
--- NOTE | 2021-10-24 08:40 | OP.EGD_ITS ---
Patient Name: Jose Lopez Procedure Date: 10/24/2021 7:58 AM Date of : 1950 Age: 71 Procedure: Upper GI endoscopy Indications: Chronic cough Providers: Raleigh Woo MD Referring MD: Jose Ann Medicines: See the Anesthesia note for documentation of the administered medications Complications: No immediate complications. Procedure: Pre-Anesthesia Assessment: - Prior to the procedure, a History and Physical was performed, and patient medications and allergies were reviewed. The patient's tolerance of previous anesthesia was also reviewed. The risks and benefits of the procedure and the sedation options and risks were discussed with the patient. All questions were answered, and informed consent was obtained. Prior Anticoagulants: The patient has taken no previous anticoagulant or antiplatelet agents. ASA Grade Assessment: II - A patient with mild systemic disease. After reviewing the risks and benefits, the patient was deemed in satisfactory condition to undergo the procedure. After obtaining informed consent, the endoscope was passed under direct vision. Throughout the procedure, the patient's blood pressure, pulse, and oxygen saturations were monitored continuously. The gastroscope was introduced through the mouth, and advanced to the second part of duodenum. The upper GI endoscopy was accomplished without difficulty. The patient tolerated the procedure well. Scope In: 8:08:28 AM Scope Out: 8:17:12 AM Total Procedure Duration Time 0 hours 8 minutes 44 seconds Findings: LA Grade A (one or more mucosal breaks less than 5 mm, not extending between tops of 2 mucosal folds) esophagitis with no bleeding was found 39 cm from the incisors. Biopsies were taken with a cold forceps for histology. A mild Schatzki ring was found at the gastroesophageal junction. A medium-sized hiatal hernia was present. Multiple sessile polyps with no stigmata of recent bleeding were found on the greater curvature of the stomach. The polyp was removed with a cold biopsy forceps. Resection and retrieval were complete. Diffuse mildly erythematous mucosa without bleeding was found in the gastric antrum. Biopsies were taken with a cold forceps for histology. The examined duodenum was normal. Impression: - LA Grade A reflux esophagitis. Biopsied. - Mild Schatzki ring. - Medium-sized hiatal hernia. - Multiple gastric polyps. Resected and retrieved. - Erythematous mucosa in the antrum. Biopsied. - Normal examined duodenum. Recommendation: - Discharge patient to home. - Resume previous diet. - Continue present medications. - Telephone my office for pathology results in 1 week. Cough likely due to reflux. Phlegm and irritation noted of hypopharynx. Conservative measures recommended. Could consider hiatal hernia repair. Procedure Code(s): --- Professional --- 06312, Esophagogastroduodenoscopy, flexible, transoral; with biopsy, single or multiple Diagnosis Code(s): --- Professional --- K21.0, Gastro-esophageal reflux disease with esophagitis K22.2, Esophageal obstruction K44.9, Diaphragmatic hernia without obstruction or gangrene K31.7, Polyp of stomach and duodenum K31.89, Other diseases of stomach and duodenum R05, Cough CPT copyright 2017 [employer]. All rights reserved. The codes documented in this report are preliminary and upon paper products machine operator review may be revised to meet current compliance requirements. Raleigh Woo MD 10/24/2021 8:39:58 AM This report has been signed electronically. Number of Addenda: 0 Note Initiated On: 10/24/2021 7:58 AM
--- NOTE | 2021-10-24 08:41 | OP.CCLET_ITS ---
10/24/2021 Jose Ann [address] [place] [address] Re : Upper GI endoscopy procedure for Jose Lopez Dear Dr. Ann This procedure was performed on Sunday, October 24, 2021. My impressions and recommendations are as follows: Impressions : - LA Grade A reflux esophagitis. Biopsied. - Mild Schatzki ring. - Medium-sized hiatal hernia. - Multiple gastric polyps. Resected and retrieved. - Erythematous mucosa in the antrum. Biopsied. - Normal examined duodenum. Recommendations : - Discharge patient to home. - Resume previous diet. - Continue present medications. - Telephone my office for pathology results in 1 week. Cough likely due to reflux. Phlegm and irritation noted of hypopharynx. Conservative measures recommended. Could consider hiatal hernia repair. My findings are described in the full procedure note, which is enclosed. If I can be of further assistance, please feel free to contact me at Doctor phone number(s): Work: . Sincerely, Raleigh Woo MD 10/24/2021 8:39:58 AM This report has been signed electronically.
[2021-10-24 08:45] VITALS: BP 102/61; BP 132/69; PULSE 57; RESP 16; O2SAT 93
--- NOTE | 2021-10-24 08:45 | OP.COLON_ITS ---
Patient Name: Jose Lopez Procedure Date: 10/24/2021 8:17 AM Date of : 1950 Age: 71 Procedure: Colonoscopy Indications: Family history of colon cancer in a first-degree relative Providers: Raleigh Woo MD Referring MD: Jose Ann Medicines: See the Anesthesia note for documentation of the administered medications Patient Profile: Last Colonoscopy: May 2015. Complications: No immediate complications. Procedure: Pre-Anesthesia Assessment: - Prior to the procedure, a History and Physical was performed, and patient medications and allergies were reviewed. The patient's tolerance of previous anesthesia was also reviewed. The risks and benefits of the procedure and the sedation options and risks were discussed with the patient. All questions were answered, and informed consent was obtained. Prior Anticoagulants: The patient has taken no previous anticoagulant or antiplatelet agents. ASA Grade Assessment: II - A patient with mild systemic disease. After reviewing the risks and benefits, the patient was deemed in satisfactory condition to undergo the procedure. After I obtained informed consent, the scope was passed under direct vision. Throughout the procedure, the patient's blood pressure, pulse, and oxygen saturations were monitored continuously. The adult colonoscope was introduced through the anus and advanced to the cecum, identified by appendiceal orifice and ileocecal valve. The colonoscopy was performed without difficulty. The patient tolerated the procedure well. The quality of the bowel preparation was good. The ileocecal valve and the appendiceal orifice were photographed. Scope In: 8:20:59 AM Scope Withdrawal Time 0 hours 5 minutes 57 seconds Scope Out: 8:32:03 AM Total Procedure Duration Time 0 hours 11 minutes 4 seconds Findings: The digital rectal exam findings include non-thrombosed external hemorrhoids and internal hemorrhoids that prolapse with straining, but require manual replacement into the anal canal (Grade III). Pertinent negatives include normal prostate (size, shape, and consistency). The colon (entire examined portion) appeared normal. Impression: - Non-thrombosed external hemorrhoids and internal hemorrhoids that prolapse with straining, but require manual replacement into the anal canal (Grade III) found on digital rectal exam. - The entire examined colon is normal. - No specimens collected. Recommendation: - Discharge patient to home. - Resume previous diet. - Continue present medications. - Repeat colonoscopy in 5 years for surveillance. Procedure Code(s): --- Professional --- 67286, Colonoscopy, flexible; diagnostic, including collection of specimen(s) by brushing or washing, when performed (separate procedure) Diagnosis Code(s): --- Professional --- K64.2, Third degree hemorrhoids K64.4, Residual hemorrhoidal skin tags Z80.0, Family history of malignant neoplasm of digestive organs CPT copyright 2017 [employer]. All rights reserved. The codes documented in this report are preliminary and upon medical biller coder review may be revised to meet current compliance requirements. Raleigh Woo MD 10/24/2021 8:45:20 AM This report has been signed electronically. Number of Addenda: 0 Note Initiated On: 10/24/2021 8:17 AM
--- NOTE | 2021-10-24 08:46 | OP.CCLET_ITS ---
10/24/2021 Jose Ann [address] [place] [address] Re : Colonoscopy procedure for Jose Lopez Dear Dr. Ann This procedure was performed on Sunday, October 24, 2021. My impressions and recommendations are as follows: Impressions : - Non-thrombosed external hemorrhoids and internal hemorrhoids that prolapse with straining, but require manual replacement into the anal canal (Grade III) found on digital rectal exam. - The entire examined colon is normal. - No specimens collected. Recommendations : - Discharge patient to home. - Resume previous diet. - Continue present medications. - Repeat colonoscopy in 5 years for surveillance. My findings are described in the full procedure note, which is enclosed. If I can be of further assistance, please feel free to contact me at Doctor phone number(s): Work: . Sincerely, Raleigh Woo MD 10/24/2021 8:45:20 AM This report has been signed electronically.
[2021-10-24 08:50] VITALS: BP 132/69; BP 136/74; PULSE 62; RESP 16; TEMP 36.8; O2SAT 95
[2021-10-24 09:00] VITALS: BP 132/69
== END 2021-10-24 09:45 | disposition home or self-care (01) ==
LOC: EN 06:48 → AC 06:49
PROVIDERS: PCP Family Medicine; Referring Provider Family Medicine; Visit Provider Surgery
PROC: 0DJD8ZZ Inspection of Lower Intestinal Tract, Via Natural or Artificial Opening Endoscopic (ICD-10-PCS; CPT 45378; principal; 2021-10-24 07:55)
DX: K29.70 Gastritis, unspecified, without bleeding (principal); G20 Parkinson's disease; I48.91 Unspecified atrial fibrillation; K64.2 Third degree hemorrhoids; Z80.0 Family history of malignant neoplasm of digestive organs; K64.4 Residual hemorrhoidal skin tags; K21.00 Gastro-esophageal reflux disease with esophagitis, without bleeding; K44.9 Diaphragmatic hernia without obstruction or gangrene; K57.30 Diverticulosis of large intestine without perforation or abscess without bleeding; K31.7 Polyp of stomach and duodenum; Z79.82 Long term (current) use of aspirin; Z79.899 Other long term (current) drug therapy; I25.10 Atherosclerotic heart disease of native coronary artery without angina pectoris; F41.9 Anxiety disorder, unspecified; N40.0 Benign prostatic hyperplasia without lower urinary tract symptoms; F32.A Depression, unspecified; E78.00 Pure hypercholesterolemia, unspecified; I25.2 Old myocardial infarction; M19.90 Unspecified osteoarthritis, unspecified site; Z95.1 Presence of aortocoronary bypass graft; Z87.442 Personal history of urinary calculi; I10 Essential (primary) hypertension; Z90.49 Acquired absence of other specified parts of digestive tract; R05.3 Chronic cough; K22.2 Esophageal obstruction
CPT/HCPCS: 45378; 43239; 88305; 88342; J7120; J2405

== ENCOUNTER → 2021-11-15 | Outpatient (CLI) | payer MEDICARE, OTHER, SELFPAY ==
[2021-11-15 14:51] LABS: Absolute Neutrophil Count 3.4 X10^3/uL (2.0-7.7); Basophil# 0.02 X10^3/uL; Basophil% 0.4 % (0-1); Eosinophil# 0.18 X10^3/uL; Eosinophils% 3.2 % (0-5); Hemoglobin 13.1 g/dL (13.0-16.5); Lymphocyte % 23.2 % (19-41); Mean Corp Hgb Conc 35.4 g/dL (32-36); Mean Corpuscular Volume 93.2 fL (80-94); Mean Platelet Vol. 9.6 fl (6.2-12.0); Monocyte# 0.68 X10^3/uL; Monocyte% 12.1 % (0-10); NRBC Flagged by Analyzer 0 % (0-5); Neutrophil # 3.41 X10^3/uL (2.7-7.7); Neutrophil % 60.9 % (47-70); Platelet Count 220 K/mm3 (150-450); RBC Distribution Width CV 12.1 % (11.6-14.6); RBC Distribution Width SD 42.1 fl (35.1-43.9); Red Blood Count 3.97 M/mm3 (4.6-6.2); White Blood Count 5.6 K/mm3 (4.4-11.0)
[2021-11-15 15:16] LABS: Vitamin B12 816 pg/mL (211-911); Vitamin D,25 Hydroxy 39.6 ng/mL
[2021-11-15 15:20] LABS: ALB/GLOB Ratio 1.1 RATIO (0.9-2.4); AST(SGOT) 24 U/L (15-37); Alanine Aminotransfer ALT/SGPT 18 U/L (16-61); Albumin, Serum 3.5 g/dL (3.2-5.0); Alkaline Phosphatase 82 U/L (45-117); Anion Gap 5 (5-15); BUN 20 mg/dL (7-18); Calcium,Total 8.9 mg/dL (8.5-10.1); Chloride 109 mmol/L (98-107); Cholesterol 135 mg/dL (200); Creatinine, Serum 1.05 mg/dL (0.70-1.30); EST Glomerular Filtration Rate 74 mL/min (>60); Est Glom Filt Rate - Afr Amer 90 mL/min (>60); Globulin 3.3 g/dL (2.2-4.2); Glucose 93 mg/dL (74-106); High Density Lipoprotein 55 mg/dL; Potassium 3.8 mmol/L (3.5-5.1); Protein, Total 6.8 g/dL (6.4-8.2); Sodium Level 140 mmol/L (136-145); Thyroid Stim Hormone (TSH) 0.73 uIU/mL (0.358-3.74); Triglycerides 75 mg/dL; Very Low Density Lipoprotein 15 mg/dL (5-40)
[2021-11-20 21:35] LABS: VITAMIN B6 72.4 ug/L (3.4-65.2); Vitamin B1, Thiamine 117.6 nmol/L (66.5-200.0)
== END | disposition home or self-care (01) ==
LOC: MFPLAB 11:34
PROVIDERS: PCP Family Medicine; Referring Provider Family Medicine; Visit Provider Family Medicine
DX: I10 Essential (primary) hypertension (principal); M85.80 Other specified disorders of bone density and structure, unspecified site
CPT/HCPCS: 36415; 80053; 80061; 82306; 82607; 84207; 84425; 84443; 85025

== ENCOUNTER → 2022-06-19 | Outpatient (CLI) | payer MEDICARE, OTHER, SELFPAY ==
[2022-06-19 12:03] LABS: Ferritin 230 ng/mL (26-388); Iron 79 ug/dL (65-175); Iron Binding Capacity,Total 256 ug/dL (250-450); PERCENT IRON SATURATION 30.9 % (15.0-55.0)
== END | disposition home or self-care (01) ==
PROVIDERS: PCP Family Medicine; Referring Provider Psychiatry & Neurology Neurology; Visit Provider Psychiatry & Neurology Neurology
DX: G25.81 Restless legs syndrome (principal); G20 Parkinson's disease; G62.9 Polyneuropathy, unspecified; R20.2 Paresthesia of skin
CPT/HCPCS: 36415; 82728; 83540; 83550

== ENCOUNTER → 2022-07-12 | Outpatient (CLI) | payer MEDICARE, OTHER, SELFPAY ==
[2022-07-12 17:23] LABS: Absolute Lymphocyte Count 1.62 X10^3/uL (0.83-4.51); Absolute Neutrophil Count 5.3 X10^3/uL (2.0-7.7); Basophil# 0.04 X10^3/uL; Basophil% 0.5 % (0-1); Eosinophil# 0.36 X10^3/uL; Eosinophils% 4.4 % (0-5); Hematocrit 40.5 % (40-54); Hemoglobin 13.6 g/dL (13.0-16.5); Lymphocyte # 1.62 X10^3/ul (0.83-4.51); Lymphocyte % 19.9 % (19-41); Mean Corp Hgb Conc 33.6 g/dL (32-36); Mean Corpuscular Hgb 31.6 pg (27.0-32.0); Mean Corpuscular Volume 94.2 fL (80-94); Mean Platelet Vol. 9.4 fl (6.2-12.0); Monocyte# 0.77 X10^3/uL; Monocyte% 9.5 % (0-10); NRBC Flagged by Analyzer 0 % (0-5); Neutrophil # 5.33 X10^3/uL (2.7-7.7); Neutrophil % 65.5 % (47-70); Platelet Count 227 K/mm3 (150-450); RBC Distribution Width CV 11.9 % (11.6-14.6); RBC Distribution Width SD 41.6 fl (35.1-43.9); White Blood Count 8.1 K/mm3 (4.4-11.0)
[2022-07-12 18:39] LABS: ALB/GLOB Ratio 1.3 RATIO (0.9-2.4); AST(SGOT) 23 U/L (15-37); Alanine Aminotransfer ALT/SGPT 26 U/L (16-61); Albumin, Serum 3.9 g/dL (3.2-5.0); Alkaline Phosphatase 91 U/L (45-117); Anion Gap 3 (5-15); BUN 21 mg/dL (7-18); BUN/Creat Ratio 17.5 RATIO (10-20); Calcium,Total 8.7 mg/dL (8.5-10.1); Chloride 105 mmol/L (98-107); EST Glomerular Filtration Rate 64 mL/min (>60); Est Glom Filt Rate - Afr Amer 77 mL/min (>60); Globulin 2.9 g/dL (2.2-4.2); Glucose 104 mg/dL (74-106); PSA,Total - Annual Screen 0.76 ng/mL (0.00-4.00); Potassium 3.7 mmol/L (3.5-5.1); Protein, Total 6.8 g/dL (6.4-8.2); Sodium Level 137 mmol/L (136-145); Thyroid Stim Hormone (TSH) 1.16 uIU/mL (0.358-3.74)
[2022-07-12 19:19] LABS: Hepatitis C Antibody Non-Reactive (Nonreactive); Vitamin D,25 Hydroxy 30.1 ng/mL
== END | disposition home or self-care (01) ==
LOC: POLAB3 16:44
PROVIDERS: PCP Family Medicine Geriatric Medicine; Visit Provider Family Medicine Geriatric Medicine
DX: R53.83 Other fatigue (principal); Z13.89 Encounter for screening for other disorder; Z12.5 Encounter for screening for malignant neoplasm of prostate; E55.9 Vitamin D deficiency, unspecified
CPT/HCPCS: 36415; 80053; 82306; 84153; 84443; 85025; 86803; G0103

== ENCOUNTER → 2022-10-17 | Outpatient (CLI) | payer MEDICARE, OTHER, SELFPAY ==
[2022-10-17 12:22] LABS: Absolute Lymphocyte Count 1.48 X10^3/uL (0.83-4.51); Basophil# 0.04 X10^3/uL; Basophil% 0.5 % (0-1); Eosinophil# 0.51 X10^3/uL; Eosinophils% 6.6 % (0-5); Hemoglobin 13.5 g/dL (13.0-16.5); Lymphocyte # 1.48 X10^3/ul (0.83-4.51); Lymphocyte % 19.2 % (19-41); Mean Corp Hgb Conc 33.8 g/dL (32-36); Mean Corpuscular Hgb 31.5 pg (27.0-32.0); Mean Corpuscular Volume 93.5 fL (80-94); Mean Platelet Vol. 9.6 fl (6.2-12.0); Monocyte# 0.65 X10^3/uL; Monocyte% 8.4 % (0-10); NRBC Flagged by Analyzer 0 % (0-5); Neutrophil # 5.01 X10^3/uL (2.7-7.7); Platelet Count 221 K/mm3 (150-450); RBC Distribution Width CV 12.3 % (11.6-14.6); RBC Distribution Width SD 42.3 fl (35.1-43.9); Red Blood Count 4.28 M/mm3 (4.6-6.2); White Blood Count 7.7 K/mm3 (4.4-11.0)
[2022-10-17 12:40] LABS: Vitamin B12 812 pg/mL (211-911); Vitamin D,25 Hydroxy 30.8 ng/mL
[2022-10-17 12:52] LABS: AST(SGOT) 20 U/L (15-37); Alanine Aminotransfer ALT/SGPT 24 U/L (16-61); Albumin, Serum 3.5 g/dL (3.2-5.0); Alkaline Phosphatase 98 U/L (45-117); Anion Gap 6 (5-15); BUN 26 mg/dL (7-18); BUN/Creat Ratio 23.9 RATIO (10-20); Calcium,Total 8.7 mg/dL (8.5-10.1); Chloride 108 mmol/L (98-107); Cholesterol 122 mg/dL (200); Creatinine, Serum 1.09 mg/dL (0.70-1.30); EST Glomerular Filtration Rate 71 mL/min (>60); Est Glom Filt Rate - Afr Amer 86 mL/min (>60); Globulin 3.4 g/dL (2.2-4.2); Glucose 167 mg/dL (74-106); High Density Lipoprotein 50 mg/dL; Potassium 3.9 mmol/L (3.5-5.1); Protein, Total 6.9 g/dL (6.4-8.2); Sodium Level 138 mmol/L (136-145); Thyroid Stim Hormone (TSH) 1.16 uIU/mL (0.358-3.74); Triglycerides 94 mg/dL; Very Low Density Lipoprotein 19 mg/dL (5-40)
[2022-10-18 12:40] LABS: Hemoglobin A1c 5.5 % (3.8-5.6)
== END | disposition home or self-care (01) ==
LOC: POLAB3 10:17
PROVIDERS: Family Medicine; PCP Family Medicine Geriatric Medicine; Visit Provider Family Medicine Geriatric Medicine
DX: I10 Essential (primary) hypertension (principal); E55.9 Vitamin D deficiency, unspecified; R73.09 Other abnormal glucose
CPT/HCPCS: 36415; 80053; 80061; 82306; 82607; 83036; 84443; 85025

== ENCOUNTER → 2023-07-17 | Outpatient (CLI) | payer MEDICARE, OTHER, SELFPAY ==
[2023-07-17 11:14] LABS: Absolute Lymphocyte Count 1.29 X10^3/uL (0.83-4.51); Absolute Neutrophil Count 4.5 X10^3/uL (2.0-7.7); Basophil# 0.03 X10^3/uL; Basophil% 0.4 % (0-1); Eosinophil# 0.31 X10^3/uL; Eosinophils% 4.6 % (0-5); Hematocrit 38.8 % (40-54); Hemoglobin 13.3 g/dL (13.0-16.5); Lymphocyte # 1.29 X10^3/ul (0.83-4.51); Lymphocyte % 19.3 % (19-41); Mean Corp Hgb Conc 34.3 g/dL (32-36); Mean Corpuscular Hgb 31.1 pg (27.0-32.0); Mean Corpuscular Volume 90.9 fL (80-94); Mean Platelet Vol. 9.3 fl (6.2-12.0); Monocyte# 0.56 X10^3/uL; Monocyte% 8.4 % (0-10); NRBC Flagged by Analyzer 0 % (0-5); Neutrophil # 4.47 X10^3/uL (2.7-7.7); Neutrophil % 66.9 % (47-70); Platelet Count 215 K/mm3 (150-450); RBC Distribution Width CV 12.3 % (11.6-14.6); RBC Distribution Width SD 40.5 fl (35.1-43.9); Red Blood Count 4.27 M/mm3 (4.6-6.2); White Blood Count 6.7 K/mm3 (4.4-11.0)
[2023-07-17 11:36] LABS: ALB/GLOB Ratio 1.2 RATIO (0.9-2.4); AST(SGOT) 21 U/L (15-37); Alanine Aminotransfer ALT/SGPT 9 U/L (16-61); Albumin, Serum 3.6 g/dL (3.2-5.0); Alkaline Phosphatase 84 U/L (45-117); Anion Gap 5 (5-15); BUN 20 mg/dL (7-18); BUN/Creat Ratio 17.7 RATIO (10-20); Calcium,Total 8.7 mg/dL (8.5-10.1); Chloride 108 mmol/L (98-107); Creatinine, Serum 1.13 mg/dL (0.70-1.30); EST Glomerular Filtration Rate 68 mL/min (>60); Est Glom Filt Rate - Afr Amer 82 mL/min (>60); Glucose 140 mg/dL (74-106); Potassium 3.8 mmol/L (3.5-5.1); Protein, Total 6.6 g/dL (6.4-8.2); Sodium Level 140 mmol/L (136-145); Thyroid Stim Hormone (TSH) 1.66 uIU/mL (0.358-3.74)
== END | disposition home or self-care (01) ==
LOC: POLAB3 10:06
PROVIDERS: PCP Family Medicine Geriatric Medicine; Visit Provider Family Medicine Geriatric Medicine
DX: I10 Essential (primary) hypertension (principal); E55.9 Vitamin D deficiency, unspecified
CPT/HCPCS: 36415; 80053; 82306; 84443; 85025

== ENCOUNTER → 2023-08-27 | Outpatient (CLI) | payer MEDICARE, OTHER, SELFPAY | END | disposition home or self-care (01) | LOC: LABSPEC 14:32 | PROVIDERS: PCP Family Medicine Geriatric Medicine; Referring Provider Surgery; Visit Provider Surgery | DX: L02.211 Cutaneous abscess of abdominal wall (principal) | CPT/HCPCS: 87070; 87075; 87077; 87186; 87205 ==

== ENCOUNTER → 2023-10-01 | Outpatient (CLI) | payer MEDICARE, OTHER, SELFPAY ==
--- NOTE | 2023-10-01 15:32 | RAD_ITS ---
STUDY: X-RAY - RIGHT ANKLE REASON FOR EXAM: Male, 73 years old. Ankle sprain. Pain. TECHNIQUE: 3 view(s) of the ankle. COMPARISON: None. FINDINGS: Normal visualized distal tibia and fibula. Normal medial and lateral malleoli. Normal tibiotalar articulation and ankle mortise. Small superior and inferior calcaneal spurs. Mild arthrosis of the midfoot. 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 RAD/Ankle min 3 Views IMPRESSION: Small calcaneal spurs, arthrosis of the midfoot and ossification of the distal Achilles tendon and the proximal plantar fascia. No acute osseous abnormality. Electronically Signed: Jefry Jimenez MD at 15:52 EDT ,
== END | disposition home or self-care (01) ==
LOC: RAD 15:29
PROVIDERS: PCP Family Medicine Geriatric Medicine; Referring Provider Family Medicine Geriatric Medicine; Visit Provider Family Medicine Geriatric Medicine
DX: S93.401A Sprain of unspecified ligament of right ankle, initial encounter (principal)
CPT/HCPCS: 73610

== ENCOUNTER → 2024-01-17 | Outpatient (CLI) | payer MEDICARE, OTHER, SELFPAY ==
--- NOTE | 2024-01-17 12:35 | RAD_ITS ---
INDICATION: LOW BACK PAIN UNSPECIFIED EXAMINATION/TECHNIQUE: X-RAY - XR Spine Lumbar Min 4 Views COMPARISON: No relevant prior comparison study available FINDINGS: VERTEBRAE: Preserved vertebral body height. No fracture. Mid 1 anterolisthesis of L4 over L5 and mild retrolisthesis of L1 over L2 and L2 over L3. Preservation of the normal lumbar lordosis. Minimal levoscoliosis of the lower lumbar spine. DISCS: Severe disc space narrowing of L4-L5 and L5-S1. Degenerative arthropathy of the facet joints of the lower lumbar spine. INCLUDED ABDOMEN: Atherosclerotic calcifications of the abdominal aorta. RAD/L/S Spine Min 4 Views IMPRESSION: Degenerative changes of the lumbar spine as described above. Electronically Signed: Bradford Gaytan MD at 14:50 EDT ,
== END | disposition home or self-care (01) ==
LOC: RAD 12:32
PROVIDERS: PCP Family Medicine Geriatric Medicine; Referring Provider Family Medicine Geriatric Medicine; Visit Provider Family Medicine Geriatric Medicine
DX: M54.50 Low back pain, unspecified (principal); M54.31 Sciatica, right side
CPT/HCPCS: 72110

== ENCOUNTER → 2024-03-14 | Outpatient (CLI) | payer MEDICARE, OTHER, SELFPAY ==
--- NOTE | 2024-03-14 09:12 | MRI_ITS ---
STUDY: MRI LUMBAR SPINE WITHOUT CONTRAST REASON FOR EXAM: Male, 73 years old. LUMBAR RADICULOPATHY PAIN INTO R LEG TECHNIQUE: Standardized fat and water weighted pulse sequences were obtained in the sagittal and axial planes. COMPARISON: Lumbar spine radiograph January 17, 2024 FINDINGS: T12-L1: Normal endplates. Normal disc height, hydration and morphology. Normal bilateral facet joints. Normal central canal and bilateral lateral recesses. Normal bilateral intervertebral neural foramina. Normal lumbar lordosis. There is no substantial scoliosis. Normal conus medullaris that terminates at the L1 level. L1-2: Normal endplates. Small central posterior disc protrusion. Normal disc height, hydration and morphology. Normal bilateral facet joints. Normal central canal and bilateral lateral recesses. Normal bilateral intervertebral neural foramina. L2-3: Moderate left paracentral disc extrusion effacing the lateral recess and neural foramen. Probable nerve root impingement L2 and/or L3 nerve root. L3-4: Normal endplates. Normal disc height, hydration and morphology. Normal bilateral facet joints. Normal central canal and bilateral lateral recesses. Normal bilateral intervertebral neural foramina. L4-5: Disc space narrowing. Anterior subluxation several millimeters. Severe narrowing of the neural foramen on the right and moderate narrowing on the left. Probable nerve root impingement L4 on the right. Central canal patent. Possible pars defect on the right. L5-S1: Hypertrophic facet disease and moderate narrowing of the neural foramina bilaterally. Slight anterior subluxation. Central canal patent. Normal visualized sacral ala. Normal visualized paraspinous soft tissue structures. MRI/Spine Lumbar (Routine) IMPRESSION: Grade 1 spondylolisthesis L4-5 and L5-S1. Moderate left paracentral disc extrusion with probable L2 and/or L3 nerve root impingement. Neural foraminal narrowing as noted above at L4-5 and L5-S1. Probable impingement L4 nerve root on the right. Electronically Signed: Rc Kahn MD at 17:00 EST ,
== END | disposition home or self-care (01) ==
LOC: MRI 08:48
PROVIDERS: PCP Family Medicine Geriatric Medicine; Referring Provider Anesthesiology Pain Medicine; Visit Provider Anesthesiology Pain Medicine
DX: M54.16 Radiculopathy, lumbar region (principal)
CPT/HCPCS: 72148

== ENCOUNTER → 2024-03-26 | Outpatient (CLI) | payer MEDICARE, OTHER, SELFPAY ==
[2024-03-26 14:41] LABS: Bacteria 0 SEEN /hpf (None Seen); Mucous, Urine 0 SEEN /hpf (<or=2+); Red Blood Cells-Urine 0 SEEN /hpf (0-5); Squamous Epithelial Cells - UA 0 SEEN /hpf (0-5); White Blood Cells 0 SEEN /hpf (0-5)
[2024-03-26 17:43] LABS: Absolute Lymphocyte Count 1.44 X10^3/uL (0.83-4.51); Absolute Neutrophil Count 5.7 X10^3/uL (2.0-7.7); Basophil# 0.03 X10^3/uL; Basophil% 0.4 % (0-1); Eosinophil# 0.27 X10^3/uL; Eosinophils% 3.3 % (0-5); Hematocrit 40.3 % (40-54); Hemoglobin 13.5 g/dL (13.0-16.5); Lymphocyte # 1.44 X10^3/ul (0.83-4.51); Lymphocyte % 17.5 % (19-41); Mean Corp Hgb Conc 33.5 g/dL (32-36); Mean Corpuscular Hgb 31.3 pg (27.0-32.0); Mean Corpuscular Volume 93.5 fL (80-94); Mean Platelet Vol. 9.8 fl (6.2-12.0); Monocyte# 0.77 X10^3/uL; Monocyte% 9.4 % (0-10); NRBC Flagged by Analyzer 0 % (0-5); Neutrophil # 5.68 X10^3/uL (2.7-7.7); Platelet Count 242 K/mm3 (150-450); RBC Distribution Width SD 41.6 fl (35.1-43.9); Red Blood Count 4.31 M/mm3 (4.6-6.2); White Blood Count 8.2 K/mm3 (4.4-11.0)
[2024-03-26 17:45] LABS: Color, Urine Yellow (Yellow); Glucose, Dipstick Normal (Normal); Ketone-Dipstick Negative (Negative); Leukocyte Esterase-Dipstick Negative /ul (Negative); Nitrite-Dipstick Negative (Negative); Occult Blood-Urine Negative /ul (Negative); Protein-Dipstick Negative (Negative); Urine Bilirubin Dipstick Negative (Negative); Urine Clarity Clear (Clear); Urine Urobilinogen Normal (Normal)
[2024-03-26 18:00] LABS: Vitamin D,25 Hydroxy 34.1 ng/mL
[2024-03-26 18:08] LABS: ALB/GLOB Ratio 1.2 RATIO (0.9-2.4); AST(SGOT) 21 U/L (15-37); Alanine Aminotransfer ALT/SGPT 17 U/L (16-61); Albumin, Serum 3.8 g/dL (3.2-5.0); Alkaline Phosphatase 99 U/L (45-117); Anion Gap 7 (5-15); BUN 21 mg/dL (7-18); BUN/Creat Ratio 18.9 RATIO (10-20); Calcium,Total 9.2 mg/dL (8.5-10.1); Chloride 105 mmol/L (98-107); Cholesterol 149 mg/dL (200); Creatinine, Serum 1.11 mg/dL (0.70-1.30); EST Glomerular Filtration Rate 69 mL/min (>60); Est Glom Filt Rate - Afr Amer 84 mL/min (>60); Globulin 3.2 g/dL (2.2-4.2); Glucose 103 mg/dL (74-106); High Density Lipoprotein 54 mg/dL; Magnesium 1.9 mg/dL (1.6-2.6); Potassium 4.2 mmol/L (3.5-5.1); Sodium Level 138 mmol/L (136-145); Triglycerides 90 mg/dL; Very Low Density Lipoprotein 18 mg/dL (5-40)
[2024-03-27 13:18] LABS: Hemoglobin A1c 5.8 % (3.8-5.6)
== END | disposition home or self-care (01) ==
LOC: MFPLAB 14:40
PROVIDERS: PCP Family Medicine; Referring Provider Family Medicine; Visit Provider Family Medicine
DX: R73.09 Other abnormal glucose (principal); I10 Essential (primary) hypertension; M85.80 Other specified disorders of bone density and structure, unspecified site
CPT/HCPCS: 36415; 80053; 80061; 81001; 82306; 83036; 83735; 84443; 85025

== ENCOUNTER → 2024-05-07 | Outpatient (CLI) | payer MEDICARE, OTHER, SELFPAY ==
--- NOTE | 2024-05-07 12:32 | BD_ITS ---
STUDY: DUAL ENERGY X-RAY ABSORPTIOMETRY / DXA REASON FOR EXAM: Male, 73 years old. 733.90OsteopeniaBONE DENSITY REASON FOR EXAM TECHNIQUE: Bone Mineral Density (BMD) measurements of lumbar spine and bilateral hips were obtained. COMPARISON: None. FINDINGS: Lumbar Spine (L1-L4): g/cm2 (1.102) / T-score (0.3) / Z-score (1.2) Findings are suggestive of normal bone density with a low fracture risk. Left Femur Total: g/cm2 (0.685) / T-score (-1.8) / Z-score (-0.6) Left Femoral Neck: g/cm2 (0.843) / T-score (-1.3) / Z-score (-0.5) Right Femur Total: g/cm2 (0.875) / T-score (-1.0) / Z-score (-0.3) Right Femoral Neck: g/cm2 (0.764) / T-score (-1.2) / Z-score (0.0) BD/Dexa Bone Density Study IMPRESSION: The patient is considered osteopenic as outlined below according to World [employer] Organization (WHO) criteria with a moderate fracture risk. Reference Information: The T-score is the number of standard deviations above or below the standard which is normal for young adults at their peak bone mineral density. The World Health Organization (WHO) interprets the T-scores as follows: Above -1 Normal bone density Between -1 and -2.5 Osteopenia Equal to / or below -2.5 Osteoporosis As a practical clinical guideline, osteopenia may be graded as follows: Mild -1 through -1.5 Moderate -1.6 through -2.0 Severe -2.1 through -2.4 The Z-score is the number of standard deviations above or below age-matched controls. A Z-score of less than -1.5 would be considered abnormal. References: 1. NIH Osteoporosis and Related Bone Diseases www osteo.org 2. International Society for Clinical Densitometry www iscd.org 3. National Osteoporosis Foundation www nof.org Electronically Signed: Gordo Martin MD at 12:38 EST ,
== END | disposition home or self-care (01) ==
LOC: OPBD 12:30
PROVIDERS: PCP Family Medicine; Referring Provider Family Medicine; Visit Provider Family Medicine
DX: M85.88 Other specified disorders of bone density and structure, other site (principal)
CPT/HCPCS: 77080

== ENCOUNTER → 2024-06-03 | Outpatient (CLI) | payer MEDICARE, OTHER, SELFPAY ==
[2024-06-03 16:39] LABS: Iron 56 ug/dL (65-175)
== END | disposition home or self-care (01) ==
PROVIDERS: PCP Family Medicine; Visit Provider Psychiatry & Neurology Neurology
DX: I48.91 Unspecified atrial fibrillation (principal); G20.A1 Parkinson's disease without dyskinesia, without mention of fluctuations; G25.81 Restless legs syndrome; I25.10 Atherosclerotic heart disease of native coronary artery without angina pectoris
CPT/HCPCS: 36415; 83540

== ENCOUNTER 2024-09-08 08:30 | Outpatient (CLI) | payer MEDICARE, OTHER, SELFPAY ==
[2024-09-08 08:39] LABS: Bacteria 0 SEEN /hpf (None Seen); Mucous, Urine 0 SEEN /hpf (<or=2+); Red Blood Cells-Urine 0 SEEN /hpf (0-5)
[2024-09-08 10:02] LABS: Color, Urine Yellow (Yellow); Glucose, Dipstick Normal (Normal); Ketone-Dipstick 5 mg/dl (Negative); Leukocyte Esterase-Dipstick Negative /ul (Negative); Nitrite-Dipstick Negative (Negative); Occult Blood-Urine Negative /ul (Negative); Protein-Dipstick 15 mg/dl (Negative); Urine Bilirubin Dipstick Negative (Negative); Urine Clarity Clear (Clear); Urine Urobilinogen Normal (Normal)
[2024-09-08 10:11] LABS: Absolute Lymphocyte Count 1.23 X10^3/uL (0.83-4.51); Absolute Neutrophil Count 4.4 X10^3/uL (2.0-7.7); Basophil# 0.03 X10^3/uL; Basophil% 0.4 % (0-1); Eosinophils% 7.4 % (0-5); Hematocrit 36.8 % (40-54); Hemoglobin 12.7 g/dL (13.0-16.5); Lymphocyte # 1.23 X10^3/ul (0.83-4.51); Lymphocyte % 18.1 % (19-41); Mean Corp Hgb Conc 34.5 g/dL (32-36); Mean Corpuscular Hgb 31.7 pg (27.0-32.0); Mean Corpuscular Volume 91.8 fL (80-94); Mean Platelet Vol. 9.7 fl (6.2-12.0); Monocyte# 0.61 X10^3/uL; NRBC Flagged by Analyzer 0 % (0-5); Neutrophil % 64.8 % (47-70); Platelet Count 236 K/mm3 (150-450); RBC Distribution Width SD 40.4 fl (35.1-43.9); Red Blood Count 4.01 M/mm3 (4.6-6.2); White Blood Count 6.8 K/mm3 (4.4-11.0)
[2024-09-08 10:33] LABS: Hemoglobin A1c 6.1 % (<=5.6)
[2024-09-08 10:35] LABS: Ferritin 325 ng/mL (37-417)
[2024-09-08 10:46] LABS: ALB/GLOB Ratio 1.4 RATIO (0.9-2.4); AST(SGOT) 24 U/L (<=37); Alanine Aminotransfer ALT/SGPT < 5 U/L (<=46); Albumin, Serum 3.7 g/dL (3.4-4.8); Alkaline Phosphatase 108 U/L (40-129); Anion Gap 11 (5-15); BUN 19 mg/dL (4-19); BUN/Creat Ratio 18.6 RATIO (10-20); Carbon Dioxide 23.5 mmol/L (21.0-32.0); Chloride 105 mmol/L (98-108); Cholesterol 134 mg/dL (<=200); Creatinine, Serum 1.01 mg/dL (0.70-1.20); EST Glomerular Filtration Rate 79 (>60); Globulin 2.7 g/dL (2.2-4.2); Glucose 143 mg/dL (70-99); High Density Lipoprotein 41 mg/dL; Low Density Lipoprotein Calc. 73 mg/dL; Magnesium 1.6 mg/dL (1.5-2.2); Potassium 3.9 mmol/L (3.3-5.1); Protein, Total 6.4 g/dL (5.9-8.4); Sodium Level 139 mmol/L (133-145); Total Bilirubin 0.37 mg/dL (0.00-1.30); Triglycerides 102 mg/dL; Very Low Density Lipoprotein 20 mg/dL (5-40); Vitamin D,25 Hydroxy 31.6 ng/mL (30-100); cholesterol:hdl ratio screen 3.29
[2024-09-08 12:39] LABS: Calcium Oxalate Crystals Ur 1+ /hpf (<or=2+)
[2024-09-08 12:40] LABS: White Blood Cells 0-5 SEEN /hpf (0-5)
[2024-09-08 12:47] LABS: Squamous Epithelial Cells - UA 0-5 SEEN /hpf (0-5)
[2024-09-09 05:07] LABS: Haptoglobin 209 mg/dL (34-355); Transferrin 185 mg/dL (177-329)
== END 2024-09-08 23:59 | disposition home or self-care (01) ==
PROVIDERS: PCP Family Medicine; Referring Provider Family Medicine; Visit Provider Family Medicine
DX: I10 Essential (primary) hypertension (principal); R73.02 Impaired glucose tolerance (oral); E61.1 Iron deficiency; G25.81 Restless legs syndrome
CPT/HCPCS: 36415; 80053; 80061; 81001; 82306; 82728; 83010; 83036; 83735; 84466; 85025

== ENCOUNTER 2024-09-30 09:56 | Outpatient (CLI) | payer MEDICARE, OTHER, SELFPAY ==
[2024-10-01 14:08] LABS: Lyme Scn Total Ab w/Rflx Negative (Negative)
== END 2024-09-30 23:59 | disposition home or self-care (01) ==
LOC: MFPLAB 09:57
PROVIDERS: PCP Family Medicine; Visit Provider Family Medicine
DX: S20.469A Insect bite (nonvenomous) of unspecified back wall of thorax, initial encounter (principal); W57.XXXA Bitten or stung by nonvenomous insect and other nonvenomous arthropods, initial encounter
CPT/HCPCS: 36415; 86618